=== PATIENT | male | born 1955 | race African-American/Black ===

== ENCOUNTER 2018-05-19 14:24 | Inpatient (IN) | payer OTHER ==
--- NOTE | 2018-05-19 15:28 | PDOC ---
History of Present Illness - General Chief Complaint: Shortness of Breath Stated Complaint: Shortness of Breath Time Seen by Provider: 05/19/18 15:27 History Source: Patient Exam Limitations: No Limitations - History of Present Illness Initial Comments: 05/19/18 15:46 62 year old male with PMH CHF, HTN, HLD, COPD, IDDM, scrotal swelling presented to ED for generalized weakness x4 days, worsening today. Pt stated he is normally able to walk "up and down the [place]" and use stairs, but for the last four days has sat in diarrhea because he was only able to transport himself from the bed to the couch and other short distances. Pt stated today he was not able to get out of bed at all because he was so generally weak, which prompted him to call the ambulance. Pt admitted to dry cough, increasing abdominal distension, increasing upper and lower extremity swelling. Allergies: NKDA Past History - Past Medical History Allergies/Adverse Reactions: Allergies Allergy/AdvReac Type Severity Reaction Status Date / Time No Known Allergies Allergy Unverified 05/19/18 15:10 Home Medications: Ambulatory Orders Aspirin [ASA -] 81 mg PO DAILY 05/19/18 Budesonide/Formeterol Fumarate [SYMBICORT 160/4.5mcg -] 1 inh PO BID 05/19/18 Enalapril Maleate [Vasotec] 20 mg PO DAILY 05/19/18 Furosemide [Lasix] 40 mg PO BID 05/19/18 Insulin Detemir [Levemir Flextouch] 10 units SQ HS 05/19/18 Metoprolol Succinate 50 mg PO BID 05/19/18 Rivaroxaban [Xarelto] 15 mg PO DAILY 05/19/18 Spironolactone 25 mg PO DAILY 05/19/18 Cardiac Disorders: Yes COPD: Yes Diabetes: Yes HTN: Yes Hypercholesterolemia: Yes Other medical history: PVD - Suicide/Smoking/Psychosocial Hx Smoking History: Former smoker Have you smoked in the past 12 months: No Information on smoking cessation initiated: No Hx Alcohol Use: No Drug/Substance Use Hx: No Review of Systems - Review of Systems Able to Perform ROS?: Yes Comments:: 05/19/18 15:49 General: admitted to generalized weakness. denied fever, chills. HEENT: denied sore throat, rhinorrhea, ear pain. Heart: denied chest pain, palpitations, syncope, diaphoresis. Respiratory: denied shortness of breath, cough, sputum production, hemoptysis. Abdomen: admitted to abdominal distension. denied abdominal pain, nausea, vomiting, diarrhea, constipation, blood in stool. : denied dysuria, increased urinary frequency, hematuria, urinary incontinence , flank pain. Back: denied back pain. Musculoskeletal: denied joint pain, muscle pain, joint swelling. Neurological: denied headache, dizziness, numbness, tingling, weakness. Skin: denied rash, laceration, abrasion. *Physical Exam - Vital Signs Last Vital Signs Temp Pulse Resp BP Pulse Ox 97.3 F L 129 H 33 H 146/107 H 89 L 05/19/18 14:30 05/19/18 14:30 05/19/18 14:30 05/19/18 14:30 05/19/18 14:30 - Physical Exam Comments: 05/19/18 16:10 Constitutional: morbidly obese. HEENT: head is normocephalic, atraumatic. EOMI. PERRLA. Neck: supple. Full ROM. Heart: regular rhythm. no murmurs, rubs or gallops. Lungs: decreased lung sounds bilaterally. crackles to bilateral bases. no wheezing. speaking full sentences. no accessory muscle use. Abdomen: edematous, dependent 4+ pitting edema. soft, nontender. normal bowel sounds. no rebound, guarding, masses. Extremities: peripheral pulses intact. 4+ pitting edema to upper and lower extremities. Neurological: CN 2-12 grossly intact. moves all four extremities. Psych: awake, alert, oriented x3. follows commands. answers questions appropriately. Skin: diffuse wounds to bilateral lower extremities. ED Treatment Course - LABORATORY CBC & Chemistry Diagram: 05/20/18 05:50 05/20/18 05:50 Medical Decision Making - Medical Decision Making 05/19/18 16:11 62 year old male with above PMH presented to ED for worsening generalized weakness, dry cough. Initial Vital Signs Temp Pulse Resp BP Pulse Ox 97.3 F L 129 H 33 H 146/107 H 89 L 05/19/18 14:30 05/19/18 14:30 05/19/18 14:30 05/19/18 14:30 05/19/18 14:30 Afebrile. Tachycardic. Tachypneic. Hypertensive. Hypoxic on room air. -Currently 94% on 2L NC Labs ordered: CBC, CMP, troponin, BNP, VBG Imaging ordered: CXR Medications ordered: SL Nitro 0.4 once EKG performed at 1438: rate 129, regular rhythm, normal axis, QRS 140, no acute ST abnormalities. 05/19/18 16:29 CBC WBC 9.3 K/mm3 (4.0-10.0) 05/19/18 15:35 RBC 6.27 M/mm3 (4.00-5.60) H 05/19/18 15:35 Hgb 16.2 GM/dL (11.7-16.9) 05/19/18 15:35 Hct 52.7 % (35.4-49) H 05/19/18 15:35 MCV 84.1 fl (80-96) 05/19/18 15:35 MCH 25.8 pg (25.7-33.7) 05/19/18 15:35 MCHC 30.7 g/dl (32.0-35.9) L 05/19/18 15:35 RDW 20.5 % (11.9-15.9) H 05/19/18 15:35 Plt Count 176 K/MM3 (134-434) 05/19/18 15:35 MPV 10.6 fl (7.5-11.1) 05/19/18 15:35 Absolute Neuts (auto) 7.9 K/mm3 (1.5-8.0) 05/19/18 15:35 Neutrophils % 85.2 % (42.8-82.8) H 05/19/18 15:35 Lymphocytes % 6.8 % (8-40) L 05/19/18 15:35 Monocytes % 6.5 % (3.8-10.2) 05/19/18 15:35 Eosinophils % 0.8 % (0-4.5) 05/19/18 15:35 Basophils % 0.7 % (0-2.0) 05/19/18 15:35 Nucleated RBC % 0 % (0-0) 05/19/18 15:35 No leukocytosis. No anemia. VBG - no acidosis. no CO2 retention. 05/19/18 16:39 CMP Sodium 142 mmol/L (136-145) 05/19/18 15:35 Potassium 3.9 mmol/L (3.5-5.1) 05/19/18 15:35 Chloride 109 mmol/L (98-107) H 05/19/18 15:35 Carbon Dioxide 26 mmol/L (21-32) 05/19/18 15:35 Anion Gap 8 MMOL/L (8-16) 05/19/18 15:35 BUN 9 mg/dL (7-18) 05/19/18 15:35 Creatinine 0.7 mg/dL (0.55-1.3) 05/19/18 15:35 Creat Clearance w eGFR 114.27 (>60) 05/19/18 15:35 Random Glucose 40 mg/dL (74-106) L* 05/19/18 15:35 Calcium 8.2 mg/dL (8.5-10.1) L 05/19/18 15:35 Phosphorus 3.3 mg/dL (2.5-4.9) 05/19/18 15:35 Magnesium 1.8 mg/dL (1.8-2.4) 05/19/18 15:35 Total Bilirubin 1.6 mg/dL (0.2-1) H 05/19/18 15:35 AST 27 U/L (15-37) 05/19/18 15:35 ALT 10 U/L (13-61) L 05/19/18 15:35 Alkaline Phosphatase 110 U/L (45-117) 05/19/18 15:35 Troponin I 0.03 ng/ml (0.00-0.05) 05/19/18 15:35 B-Natriuretic Peptide 9862.0 pg/ml (5-125) H 05/19/18 15:35 Total Protein 6.3 g/dl (6.4-8.2) L 05/19/18 15:35 Albumin 2.6 g/dl (3.4-5.0) L 05/19/18 15:35 No clinically significant electrolyte abnormalities. No KEYLA. Hypoglycemia. Normal troponin. Elevated BNP. Pt given juice and a sandwich for hypoglycemia. Pt to be admitted for CHF exacerbation, ansarca, respiratory distress, abdominal distension. CXR report: mild to moderate cardiomegaly without evidence of acute lung disease. 05/19/18 17:23 Pt to be admitted to Dr. Morris service. Pending admission. Medications ordered: Lasix 40 mg IV 05/19/18 18:14 BGM 39 Medications ordered: 1 amp D50 05/19/18 21:41 BGM 75 Medications ordered: 1 amp D50 *DC/Admit/Observation/Transfer Diagnosis at time of Disposition: Anasarca, Ascites, Respiratory distress - Discharge Dispostion Condition at time of disposition: Stable Decision to Admit order: Yes - Referrals - Patient Instructions - Post Discharge Activity
[2018-05-19] MEDS ORDERED: NITROGLYCERIN SUBLINGUAL 1/150 0.4 MG TAB SL ONE (15:46)
[2018-05-19 15:54] LABS: VENOUS PC02 51.9 mmHg (41-51); VENOUS PH 7.34 (7.31-7.41); VENOUS PO2 30.2 mmHg (30-40)
--- NOTE | 2018-05-19 15:57 | PDOC ---
Attending Attestation - HPI HPI: 05/19/18 16:04 The patient is a 62 year old male, with a significant PMH of COPD, HTN, and HLD who presents to the emergency department via EMS, with 4 days of generalized weakness and shortness of breath. The patient states he is usually able to walk long distances, however, for the last 4 days he has been sitting on his diarrhea because everytime he tried to get up he could not move. The patient states he is endorsing dry cough, increasing abdominal distension, and increasing upper and lower extremity swelling. The patient denies chest pain, headache or dizziness. The patient denies fever, chills, or constipation. The patient denies dysuria, frequency, urgency or hematuria. Allergies: NKA Past surgical history: None reported Social history: former smoker. No alcohol use. <Karla Estrada - Last Filed: 05/19/18 16:04> - Resident Resident Name: Yeimy Mccoy - ED Attending Attestation I have performed the following: I have examined & evaluated the patient, The case was reviewed & discussed with the resident, I agree w/resident's findings & plan, Exceptions are as noted - Physicial Exam PE: GENERAL: Awake, alert, and fully oriented. Obese. HEAD: No signs of trauma EYES: PERRLA, EOMI, sclera anicteric, conjunctiva clear ENT: Auricles normal inspection, hearing grossly normal, nares patent, oropharynx clear without exudates. Moist mucosa NECK: Normal ROM, supple, no lymphadenopathy, JVD, or masses LUNGS: +Crackles half-way up B/L. Good air entry B/L. HEART: Regular rate and rhythm, normal S1 and S2, no murmurs, rubs or gallops ABDOMEN: Soft, nontender, normoactive bowel sounds. No guarding, no rebound. No masses EXTREMITIES: Normal range of motion, 4+ pitting edema to all 4 extremities. + Stasis changes to BLE, with skin breakdown with granulation tissue to shins B/ L. No tenderness NEUROLOGICAL: Cranial nerves II through XII grossly intact. Normal speech. Motor and sensation intact SKIN: Warm, Dry, normal turgor, no rashes or lesions noted. - Medical Decision Making Pt presents with SOB, appears fluid overloaded on initial assessment. Will obtain CXR, labs, and plan for admission for CHF exacerbation. <Jayla Pablo - Last Filed: 05/19/18 16:27> Attestations - Attestations 05/19/18 16:05 Documentation prepared by Karla Estrada, acting as medical educator for Jayla Pablo MD, MD <Karla Estrada - Last Filed: 05/19/18 16:04>
[2018-05-19 16:01] LABS: INR 1.42 (0.83-1.09); PROTHROMBIN TIME (PATIENT) 16.8 SEC (9.7-13.0)
[2018-05-19 16:04] LABS: ACTIVATED PTT 37.9 SECONDS (25.2-36.5)
[2018-05-19 16:23] LABS: BASO % 0.7 % (0-2.0); EOS % 0.8 % (0-4.5); HEMATOCRIT 52.7 % (35.4-49); HEMOGLOBIN 16.2 GM/dL (11.7-16.9); LYMPH % 6.8 % (8-40); MCH 25.8 pg (25.7-33.7); MCHC 30.7 g/dl (32.0-35.9); MEAN CELL VOLUME 84.1 fl (80-96); MEAN PLT VOLUME 10.6 fl (7.5-11.1); MONO % 6.5 % (3.8-10.2); NEUT % 85.2 % (42.8-82.8); PLATELET COUNT 176 K/MM3 (134-434); RBC 6.27 M/mm3 (4.00-5.60); RDW 20.5 % (11.9-15.9); WHITE BLOOD COUNT 9.3 K/mm3 (4.0-10.0)
[2018-05-19 16:35] LABS: ALBUMIN 2.6 g/dl (3.4-5.0); ALK PHOS 110 U/L (45-117); ANION GAP 8 MMOL/L (8-16); BILIRUBIN,TOTAL 1.6 mg/dL (0.2-1); BLOOD UREA NITROGEN 9 mg/dL (7-18); CALCIUM 8.2 mg/dL (8.5-10.1); CHLORIDE 109 mmol/L (98-107); CO2 26 mmol/L (21-32); CREATININE 0.7 mg/dL (0.55-1.3); MAGNESIUM 1.8 mg/dL (1.8-2.4); PHOSPHOROUS 3.3 mg/dL (2.5-4.9); POTASSIUM 3.9 mmol/L (3.5-5.1); SGOT/AST 27 U/L (15-37); SGPT/ALT 10 U/L (13-61); SODIUM 142 mmol/L (136-145); TOT PROT 6.3 g/dl (6.4-8.2)
[2018-05-19 16:36] LABS: GLUCOSE,RANDOM 40 mg/dL (74-106)
[2018-05-19] MEDS ORDERED: FUROSEMIDE 40 MG/4 ML INJECTABLE VIAL IVPUSH ONE (17:21)
[2018-05-19] MEDS ORDERED: FUROSEMIDE 40 MG/4 ML INJECTABLE VIAL ONE (17:40)
[2018-05-19] MEDS ORDERED: METOPROLOL TARTRATE 5 MG/5 ML VIAL IVPUSH PRN (18:06)
[2018-05-19] MEDS ORDERED: DEXTROSE 50%-WATER 25 GM/50 ML DISP.SYRIN ONE (18:14)
[2018-05-19] MEDS ORDERED: DEXTROSE 50%-WATER - 25 GM/50 ML VIAL IVPUSH ONE ×2 (18:14→21:41)
[2018-05-19] MEDS: FUROSEMIDE 40 MG/4 ML INJECTABLE VIAL IVPUSH SCH (18:19)
--- NOTE | 2018-05-19 18:28 | HP ---
CHIEF COMPLAINT:SOB x4 days PCP: HISTORY OF PRESENT ILLNESS:pt is a poor historian, does not know his medical diagnosis because it gives him anxiety but claims medication compliance 62yo M with unconfirmed PMH presents with progressively worsening SOB x4 days. assoc wtih dry cough, poor po intake, generalized fatigue and inability to ambulate due to dyspnea. states this has been progressively worsening since his discharge last month from [facility] where he was hospitalized for < 30days for presumed CHF exacerbation. states they did every test you can think of and is unclear what were the results of those tests and what his medication changes were. states he did have a paracentesis at that time where 2.8L were removed but can not provide more information regarding this. has been at a multitude of different hospitals over the past few months but can not explain why he goes to a different facility each time. denies CP, fever, chills, N/V/C/ D or orthopnea, denies abdominal pain. states he was only able to take his asa and BP med this am and was too fatigued to take his remaining meds ER course was notable for: (1)glucose 40, juice given (2) (3) Recent Travel:denies PAST MEDICAL HISTORY:unclear but suspected to have HTN, AFib, CAD, CHF and cirrhosis PAST SURGICAL HISTORY:denies Social History: Smoking:quit 2019 but has 45+ pack year smoking history Alcohol:quit 2018 but was binge drinker on the weekends Drugs: THC in his 20's Family History:HTN in siblings Allergies No Known Allergies Allergy (Unverified 05/19/18 15:10) HOME MEDICATIONS: Home Medications Medication Instructions Recorded Aspirin [ASA -] 81 mg PO DAILY 05/19/18 Budesonide/Formeterol Fumarate 1 inh PO BID 05/19/18 [SYMBICORT 160/4.5mcg -] Enalapril Maleate [Vasotec] 20 mg PO DAILY 05/19/18 Furosemide [Lasix] 40 mg PO BID 05/19/18 Insulin Detemir [Levemir Flextouch] 10 units SQ HS 05/19/18 Metoprolol Succinate 50 mg PO BID 05/19/18 Rivaroxaban [Xarelto] 15 mg PO DAILY 05/19/18 Spironolactone 25 mg PO DAILY 05/19/18 REVIEW OF SYSTEMS CONSTITUTIONAL: generalized weakness, Absent: fever, chills, diaphoresis, malaise, loss of appetite, weight change HEENT: Absent: rhinorrhea, nasal congestion, throat pain, throat swelling, difficulty swallowing, mouth swelling, ear pain, eye pain, visual changes CARDIOVASCULAR: Absent: chest pain, syncope, palpitations, irregular heart rate, lightheadedness , peripheral edema RESPIRATORY: cough, shortness of breath, dyspnea with exertion Absent: , orthopnea, wheezing, stridor, hemoptysis GASTROINTESTINAL: Absent: abdominal pain, abdominal distension, nausea, vomiting, diarrhea, constipation, melena, hematochezia GENITOURINARY: Absent: dysuria, frequency, urgency, hesitancy, hematuria, flank pain, genital pain MUSCULOSKELETAL: Absent: myalgia, arthralgia, joint swelling, back pain, neck pain SKIN: Absent: rash, itching, pallor HEMATOLOGIC/IMMUNOLOGIC: Absent: easy bleeding, easy bruising, lymphadenopathy, frequent infections ENDOCRINE: Absent: unexplained weight gain, unexplained weight loss, heat intolerance, cold intolerance NEUROLOGIC: Absent: headache, focal weakness or paresthesias, dizziness, unsteady gait, seizure, mental status changes, bladder or bowel incontinence PSYCHIATRIC: Absent: anxiety, depression, suicidal or homicidal ideation, hallucinations. PHYSICAL EXAMINATION Vital Signs - 24 hr 05/19/18 05/19/18 05/19/18 14:30 14:45 16:42 Temperature 97.3 F L 97.1 F L Pulse Rate 129 H Pulse Rate [ 130 H Apical] Respiratory 33 H 22 H Rate Blood Pressure 146/107 H Blood Pressure 105/93 [Right Arm] O2 Sat by Pulse 89 L 94 L 100 Oximetry (%) GENERAL: Awake, alert, and fully oriented, in no acute distress. HEAD: Normal with no signs of trauma. EYES: Pupils equal, round and reactive to light, extraocular movements intact, sclera anicteric, conjunctiva clear. No lid lag. EARS, NOSE, THROAT: Ears normal, nares patent, oropharynx clear without exudates. Moist mucous membranes. NECK: Normal range of motion, supple without lymphadenopathy, JVD, or masses. LUNGS: Breath sounds equal, clear to auscultation bilaterally. No wheezes, and no crackles. No accessory muscle use. HEART: Regular rate and rhythm, normal S1 and S2 without murmur, rub or gallop. ABDOMEN: firm +distended, +ansarca. nontender, normoactive bowel sounds, MUSCULOSKELETAL: Normal range of motion at all joints. No bony deformities or tenderness. No CVA tenderness. UPPER EXTREMITIES: 2+ pulses, warm, well-perfused. No cyanosis. No clubbing. 3+ pitting edema LOWER EXTREMITIES: 2+ pulses, warm, well-perfused. No calf tenderness. 3+ pitting edema. NEUROLOGICAL: Cranial nerves II-XII intact. Normal speech. PSYCHIATRIC: Cooperative. Good eye contact. Appropriate mood and affect. genitals penis is edematous Laboratory Results - last 24 hr 05/19/18 05/19/18 05/19/18 15:35 15:35 15:35 WBC 9.3 RBC 6.27 H Hgb 16.2 Hct 52.7 H MCV 84.1 MCH 25.8 MCHC 30.7 L RDW 20.5 H Plt Count 176 MPV 10.6 Absolute Neuts (auto) 7.9 Neutrophils % 85.2 H Lymphocytes % 6.8 L Monocytes % 6.5 Eosinophils % 0.8 Basophils % 0.7 Nucleated RBC % 0 PT with INR 16.80 H INR 1.42 H PTT (Actin FS) 37.9 H VBG pH POC VBG pCO2 POC VBG pO2 VBG HCO3 VBG O2 Sat (Manuel) VBG Base Excess Sodium Potassium Chloride Carbon Dioxide Anion Gap BUN Creatinine Creat Clearance w eGFR Random Glucose Calcium Phosphorus Magnesium Total Bilirubin AST ALT Alkaline Phosphatase Troponin I B-Natriuretic Peptide Total Protein Albumin Blood Type B POSITIVE Antibody Screen Negative 05/19/18 05/19/18 15:35 15:35 WBC RBC Hgb Hct MCV MCH MCHC RDW Plt Count MPV Absolute Neuts (auto) Neutrophils % Lymphocytes % Monocytes % Eosinophils % Basophils % Nucleated RBC % PT with INR INR PTT (Actin FS) VBG pH 7.34 POC VBG pCO2 51.9 H POC VBG pO2 30.2 VBG HCO3 27.5 VBG O2 Sat (Manuel) 41.1 L VBG Base Excess 1.1 Sodium 142 Potassium 3.9 Chloride 109 H Carbon Dioxide 26 Anion Gap 8 BUN 9 Creatinine 0.7 Creat Clearance w eGFR 114.27 Random Glucose 40 L* Calcium 8.2 L Phosphorus 3.3 Magnesium 1.8 Total Bilirubin 1.6 H AST 27 ALT 10 L Alkaline Phosphatase 110 Troponin I 0.03 B-Natriuretic Peptide 9862.0 H Total Protein 6.3 L Albumin 2.6 L Blood Type Antibody Screen ASSESSMENT/PLAN: 62yo M with unknown PMH presenting with progressively worsening shortness of breath with generalized fatigue 1. Volume overload- has suspected CHF vs cirrhosis with ansarca. obtain liver u/ s. start on lasix 40mg IVP BID, spirolactone. would benefit from therapeutic and diagnostic paracentesis but is on anticoagulation and ED is unable to do at this time. will obtain medical records from [facility] to determine workup completed there. strict I&O, monitor electrolytes, daily weights. 2 afib with RVR- place on tele for cardiac monitoring. give lopressor 5mg prn for HR >120. restart metrpolol and pradaxa as no likelihood of procedure over the weekend 3. Hypoglycemia- unclear if he took insulin last night. awaiting repeat glucose at this time. would avoid starting D5w at this time to prevent worsneing anasrca. would hold insulin at this point. monitor BGM closely. check A1c 4. COPD- no signs of acute exacerbation. cont inhalers 5. CAD- hold asa for possible procedure. unclear if not on statin. had cardiac workup recently. will obtain those records 6. HTN- currently hypotensive. would hold oral agents. optimize HR control and then can re-start as needed 7. DVT ppx- xarelto 8. Requested psychiatric secretary to obtain medical records from [facility]. states he fills medications at [facility] but currently closed. has used [facility] in [place] in the past. called to obtain med list from there but note that this is from nov 2017 and may not reflect the most up to date list. Visit type - Emergency Visit Emergency Visit: Yes ED Registration Date: 05/19/18 Care time: The patient presented to the Emergency Department on the above date and was hospitalized for further evaluation of their emergent condition. - New Patient This patient is new to me today: Yes Date on this admission: 05/19/18 - Critical Care Critical Care patient: No
[2018-05-19 18:40] LABS: ANISOCYTOSIS 1+
[2018-05-19] MEDS: RIVAROXABAN 20 MG TABLET PO SCH (18:43)
[2018-05-19] MEDS: SPIRONOLACTONE 25 MG TABLET (FP) PO SCH (18:43)
[2018-05-19] MEDS: BUDESONIDE/FORMETEROL FUMARATE 160/4.5 mcg INHALER IH SCH (22:59)
[2018-05-20] MEDS: FUROSEMIDE 40 MG/4 ML INJECTABLE VIAL IVPUSH SCH ×3 (07:56→13:31)
[2018-05-20 08:10] LABS: HEMATOCRIT 39.7 % (35.4-49); HEMOGLOBIN 12.7 GM/dL (11.7-16.9); MCH 26.2 pg (25.7-33.7); MCHC 31.8 g/dl (32.0-35.9); MEAN CELL VOLUME 82.3 fl (80-96); MEAN PLT VOLUME 11.1 fl (7.5-11.1); PLATELET COUNT 172 K/MM3 (134-434); RBC 4.83 M/mm3 (4.00-5.60); RDW 19.9 % (11.9-15.9)
[2018-05-20 08:50] LABS: ALBUMIN 2.4 g/dl (3.4-5.0); ALK PHOS 89 U/L (45-117); ANION GAP 5 MMOL/L (8-16); BILIRUBIN,TOTAL 1.4 mg/dL (0.2-1); BLOOD UREA NITROGEN 11 mg/dL (7-18); CALCIUM 8.3 mg/dL (8.5-10.1); CHLORIDE 107 mmol/L (98-107); CHOLESTEROL 95 mg/dL (50-200); CO2 30 mmol/L (21-32); GLUCOSE,RANDOM 85 mg/dL (74-106); HDL CHOLESTEROL 43 mg/dL (40-60); MAGNESIUM 1.6 mg/dL (1.8-2.4); POTASSIUM 3.8 mmol/L (3.5-5.1); SGOT/AST 23 U/L (15-37); SGPT/ALT 10 U/L (13-61); SODIUM 142 mmol/L (136-145); TOT PROT 5.5 g/dl (6.4-8.2); TRIGLYCERIDES 77 mg/dL (0-150)
[2018-05-20] MEDS: SPIRONOLACTONE 25 MG TABLET (FP) PO SCH (09:13)
[2018-05-20] MEDS: BUDESONIDE/FORMETEROL FUMARATE 160/4.5 mcg INHALER IH SCH ×2 (09:13→22:13)
[2018-05-20] MEDS: RIVAROXABAN 20 MG TABLET PO SCH (17:53)
--- NOTE | 2018-05-20 19:03 | PN ---
Physical Exam: SUBJECTIVE: Patient seen and examined, no complaints at this time OBJECTIVE: Vital Signs Period Temp Pulse Resp BP Sys/Rosado Pulse Ox Last 24 Hr 97.2 F-97.9 F 83-116 18-20 125-161/66-89 94-95 in no distress at this time. MMM No ocular discharge No nasal discharge CVS:S1S2 Lungs: distant breath sound Abd: BS+ NT/ND EXT: edema up to the groin as well as the dependent area of the thorax while he is laying on his back states that is chronic and has been going on for weeks. Laboratory Results - last 24 hr 05/19/18 05/19/18 05/19/18 05:50 15:35 18:56 WBC RBC Hgb Hct MCV MCH MCHC RDW Plt Count MPV Sodium 142 Potassium 3.9 Chloride 109 H Carbon Dioxide 26 Anion Gap 8 BUN 9 Creatinine 0.7 Creat Clearance w eGFR 114.27 POC Glucometer 78 Random Glucose 40 L* Hemoglobin A1c % Calcium 8.2 L Phosphorus 3.3 Magnesium 1.8 Total Bilirubin 1.6 H AST 27 ALT 10 L Alkaline Phosphatase 110 Troponin I 0.03 B-Natriuretic Peptide 9862.0 H Total Protein 6.3 L Albumin 2.6 L Triglycerides Cholesterol Total LDL Cholesterol HDL Cholesterol TSH 3.24 Blood Type B POSITIVE 05/19/18 05/20/18 05/20/18 22:55 00:37 05:49 WBC RBC Hgb Hct MCV MCH MCHC RDW Plt Count MPV Sodium Potassium Chloride Carbon Dioxide Anion Gap BUN Creatinine Creat Clearance w eGFR POC Glucometer 53 85 91 Random Glucose Hemoglobin A1c % Calcium Phosphorus Magnesium Total Bilirubin AST ALT Alkaline Phosphatase Troponin I B-Natriuretic Peptide Total Protein Albumin Triglycerides Cholesterol Total LDL Cholesterol HDL Cholesterol TSH Blood Type 05/20/18 05/20/18 05/20/18 05:50 05:50 05:50 WBC 8.0 RBC 4.83 Hgb 12.7 Hct 39.7 D MCV 82.3 MCH 26.2 MCHC 31.8 L RDW 19.9 H Plt Count 172 MPV 11.1 Sodium 142 Potassium 3.8 Chloride 107 Carbon Dioxide 30 Anion Gap 5 L BUN 11 Creatinine 1.0 Creat Clearance w eGFR 75.72 POC Glucometer Random Glucose 85 Hemoglobin A1c % 6.4 H Calcium 8.3 L Phosphorus Magnesium 1.6 L Total Bilirubin 1.4 H AST 23 ALT 10 L Alkaline Phosphatase 89 Troponin I B-Natriuretic Peptide Total Protein 5.5 L Albumin 2.4 L Triglycerides 77 Cholesterol 95 Total LDL Cholesterol 41 HDL Cholesterol 43 TSH Blood Type Active Medications Generic Name Dose Route Start Last Admin Trade Name Freq PRN Reason Stop Dose Admin Budesonide/Formoterol Fumarate 2 puff 05/19/18 22:00 05/20/18 09:13 Symbicort 160/4.5mcg - IH 2 puff BID SOWMYA Administration Furosemide 40 mg 05/19/18 18:15 05/20/18 13:31 Lasix Injection - IVPUSH 40 mg BIDLASIX SOWMYA Administration Metoprolol Succinate 50 mg 05/19/18 22:00 05/20/18 09:13 Toprol Xl - PO 50 mg BID SOWMYA Administration Metoprolol Tartrate 5 mg 05/19/18 18:06 Lopressor Injection - IVPUSH Q4H PRN TACHYCARDIA Rivaroxaban 20 mg 05/19/18 18:15 05/20/18 17:53 Xarelto - PO 20 mg DAILY@1800 SOWMYA Administration Spironolactone 25 mg 05/19/18 18:15 05/20/18 09:13 Aldactone - PO 25 mg DAILY SOWMYA Administration ASSESSMENT/PLAN: 62 Y/O morbidly obese, known HF, non adherent to medication and diet. P/W volume overload at this time. C/W lasix daily weight, strict I.O, Keep K>4,Mg>2. C/W rest of medication at this time. chronic leg ulcer in the setting of edema:will place dressing on, not infected.
[2018-05-20] MEDS ORDERED: BACITRACIN 0.9 GM PACKET TP ONE (19:15)
[2018-05-21] MEDS: FUROSEMIDE 40 MG/4 ML INJECTABLE VIAL IVPUSH SCH (06:28)
--- NOTE | 2018-05-21 07:40 | PN ---
Physical Exam: SUBJECTIVE: Patient seen and examined,No over night events, states that he has urinating but not that much and he can not measure it as his Penis is swollen and he can not use the urinal OBJECTIVE: Vital Signs Period Temp Pulse Resp BP Sys/Rosado Pulse Ox Last 24 Hr 97.2 F-99.2 F 83-104 18-20 109-134/45-115 95-96 morbidly obese M in no distress, sitting in his bed, can also lay in the bed, with no distress MMM CVS:s1S2 Lungs: distant breath sounds Abd:BS+, NT/ND, morbidly obese EXT: 2+ pitting edema up to the penis, scrotum is also swollen, JVD was not evaluated as he has a tick neck Active Medications Generic Name Dose Route Start Last Admin Trade Name Freq PRN Reason Stop Dose Admin Budesonide/Formoterol Fumarate 2 puff 05/19/18 22:00 05/20/18 22:13 Symbicort 160/4.5mcg - IH 2 puff BID SOWMYA Administration Furosemide 100 mg 05/21/18 10:00 Lasix Injection - IVPB BID SOWMYA Metoprolol Succinate 50 mg 05/19/18 22:00 05/20/18 22:13 Toprol Xl - PO 50 mg BID SOWMYA Administration Metoprolol Tartrate 5 mg 05/19/18 18:06 Lopressor Injection - IVPUSH Q4H PRN TACHYCARDIA Rivaroxaban 20 mg 05/19/18 18:15 05/20/18 17:53 Xarelto - PO 20 mg DAILY@1800 SOWMYA Administration Spironolactone 25 mg 05/19/18 18:15 05/20/18 09:13 Aldactone - PO 25 mg DAILY SOWMYA Administration Laboratory Tests 05/20/18 05/20/18 05/20/18 05:50 05:50 05:50 WBC 8.0 Hgb 12.7 Hct 39.7 D Sodium Potassium 3.8 Chloride Carbon Dioxide BUN 11 Creatinine 1.0 Hemoglobin A1c % 6.4 H Magnesium 1.6 L Total Bilirubin 1.4 H AST 23 ALT 10 L Albumin 2.4 L 05/21/18 06:40 WBC Hgb Hct Sodium 142 Potassium 3.5 Chloride 106 Carbon Dioxide 28 BUN 12 Creatinine 1.3 Hemoglobin A1c % Magnesium 1.6 L Total Bilirubin AST ALT Albumin Per notes here he has gained about 10 pounds in the past 2 days of admission ASSESSMENT/PLAN: 62yo MW morbid obestiy, HTN, TAJ, afib with RVR, HFrEF with multiple admissions in different hospitals for volume overload, non adhrent to the diet, P/W another episode sof worsening SOB and decreased ET was found to be in volume overload. 1. HF rEF with volume overload, in the setting of non adherence to diet Lasix 40 mg bid will increase the dose to 80 TID at this time Will measure I/O , daily weight Keep K>4, Mg>2( Will replete at this time) BID BMP, Mg TTE today cardiology evaluation patient used to be on B blockers so they were continued, HR in 80s today. will monitor and adjust the dose as needed will start on low dose lisinopril at this time will start aspirin, statin Will try to get records on Tuesday If can not get the I/O may need to get pineda placed Bicarb still WNl 2 afib with RVR- place on tele for cardiac monitoring. rate in 80s at this time , C/W metrpolol and pradaxa 3. COPD- no signs of acute exacerbation. cont inhalers, used to be heavy smoker for years 4. DM: states that takes 10 units of insulin at night, A1C 6.4, will C/W monitoring at this time 5.Hypoalbuminemia: rest of the liver tests are not significantly abnormal at this time, will ask for nutrition evaluation, will send urine protein, albumin, Cr for proteinuria, US liver for fattyl liver , has HX of Etoh abuse ( quit last year) 6. Morbid obesity: will ask nutrition consult 7.DVT ppx- xarelto 8. Requested ceo and co founder to obtain medical records from [facility]. states he fills medications at [facility] but currently closed. has used [facility] in [place] in the past. called to obtain med list from there but note that this is from nov 2017 and may not reflect the most up to date list. FC Dispo: pending improvement of HF and volume status t Visit type - Emergency Visit Emergency Visit: Yes ED Registration Date: 05/19/18 Care time: The patient presented to the Emergency Department on the above date and was hospitalized for further evaluation of their emergent condition. - New Patient This patient is new to me today: No - Critical Care Critical Care patient: No - Discharge Referral Referred to [facility] formerly [facility] No
[2018-05-21 08:03] LABS: ANION GAP 7 MMOL/L (8-16); BLOOD UREA NITROGEN 12 mg/dL (7-18); CALCIUM 7.7 mg/dL (8.5-10.1); CHLORIDE 106 mmol/L (98-107); CO2 28 mmol/L (21-32); CREATININE 1.3 mg/dL (0.55-1.3); GLUCOSE,RANDOM 124 mg/dL (74-106); MAGNESIUM 1.6 mg/dL (1.8-2.4); POTASSIUM 3.5 mmol/L (3.5-5.1); SODIUM 142 mmol/L (136-145)
--- NOTE | 2018-05-21 09:12 | CON.CARD ---
Consult Consult Specialty:: Cardiology Referred by:: Hospitalist Reason for Consultation:: Cardiac evaluation - History of Present Illness Chief Complaint: Generalized weakness History of Present Illness: Patient is a 62 year old male with underlying history of HTN, hypercholesterolemia, IDDM, COPD and CHF who presents with generalized weakness. He had difficulty ambulating up and down the stairs and also had some diarrhea. He denies chest pain. Monitor reveals tachycardia suggestive of atrial arrhythmia, possible AF with RVR. He complains of dry cough, abdominal fullness and lower extremity swelling. He denies fever or chills. He denies nausea or vomiting. He denies headache or lightheadedness. - History Source History Provided By: Patient, Medical Record Limitations to Obtaining History: Clinical Condition - Past Medical History Cardio/Vascular: Yes: AFIB, CHF, HTN, Hyperlipdemia Pulmonary: Yes: COPD Endocrine: Yes: Diabetes Mellitus - Alcohol/Substance Use Hx Alcohol Use: Yes - Smoking History Smoking history: Former smoker Have you smoked in the past 12 months: No Home Medications - Allergies Allergies/Adverse Reactions: Allergies Allergy/AdvReac Type Severity Reaction Status Date / Time No Known Allergies Allergy Unverified 05/19/18 15:10 - Home Medications Home Medications: Ambulatory Orders Aspirin [ASA -] 81 mg PO DAILY 05/19/18 Budesonide/Formeterol Fumarate [SYMBICORT 160/4.5mcg -] 1 inh PO BID 05/19/18 Enalapril Maleate [Vasotec] 20 mg PO DAILY 05/19/18 Furosemide [Lasix] 40 mg PO BID 05/19/18 Insulin Detemir [Levemir Flextouch] 10 units SQ HS 05/19/18 Metoprolol Succinate 50 mg PO BID 05/19/18 Rivaroxaban [Xarelto] 15 mg PO DAILY 05/19/18 Spironolactone 25 mg PO DAILY 05/19/18 Review of Systems - Review of Systems Constitutional: denies: Chills, Fever Cardiovascular: reports: Palpitations, Shortness of Breath. denies: Chest Pain Respiratory: reports: Cough. denies: Hemoptysis, Orthopnea, PND Gastrointestinal: reports: Diarrhea. denies: Abdominal Pain, Melena, Nausea, Rectal Bleeding, Vomiting Neurological: denies: Dizziness, Headache, Seizure, Syncope Vital Signs: Vital Signs Temperature 97.9 F 05/21/18 06:01 Pulse Rate 85 05/21/18 06:01 Respiratory Rate 20 05/21/18 06:01 Blood Pressure 126/65 05/21/18 06:01 O2 Sat by Pulse Oximetry (%) 96 05/20/18 20:49 Eyes: Yes: PERRL HENT: Yes: Atraumatic Neck: Yes: Supple Respiratory: Yes: Diminished Gastrointestinal: Yes: Normal Bowel Sounds, Soft, Abdomen, Obese. No: Tenderness Cardiovascular: Yes: Tachycardia, Pulse Irregular JVD: No PMI: Non-Displaced Heart Sounds: Yes: S1, S2 Murmur: Yes: Systolic Murmur, Grade 1 Edema: Yes Edema: LLE: 1+, RLE: 1+ - Other Data Labs, Other Data: CBC, BMP 05/20/18 05:50 05/21/18 06:40 INR, PTT INR 1.42 (0.83-1.09) H 05/19/18 15:35 Laboratory Results - last 24 hr 05/19/18 05/21/18 05:50 06:40 Sodium 142 Potassium 3.5 Chloride 106 Carbon Dioxide 28 Anion Gap 7 L BUN 12 Creatinine 1.3 Creat Clearance w eGFR 55.94 Random Glucose 124 H Calcium 7.7 L Magnesium 1.6 L Blood Type B POSITIVE AF with RVR Imaging - Results Chest X-ray: Report Reviewed (Cardiomegaly) X-ray: Report Reviewed (Moderate ascites and right pleural effusion) EKG: Report Reviewed Problem List - Problems (1) Afib Code(s): I48.91 - UNSPECIFIED ATRIAL FIBRILLATION Qualifiers: Atrial fibrillation type: paroxysmal Qualified Code(s): I48.0 - Paroxysmal atrial fibrillation (2) Anasarca Code(s): R60.1 - GENERALIZED EDEMA (3) Ascites Code(s): R18.8 - OTHER ASCITES (4) COPD (chronic obstructive pulmonary disease) Code(s): J44.9 - CHRONIC OBSTRUCTIVE PULMONARY DISEASE, UNSPECIFIED (5) HTN (hypertension) Code(s): I10 - ESSENTIAL (PRIMARY) HYPERTENSION Qualifiers: Hypertension type: essential hypertension Qualified Code(s): I10 - Essential (primary) hypertension (6) Heart failure, systolic, with acute decompensation Code(s): I50.23 - ACUTE ON CHRONIC SYSTOLIC (CONGESTIVE) HEART FAILURE (7) Hypercholesteremia Code(s): E78.00 - PURE HYPERCHOLESTEROLEMIA, UNSPECIFIED (8) Morbid obesity with BMI of 40.0-44.9, adult Code(s): E66.01 - MORBID (SEVERE) OBESITY DUE TO EXCESS CALORIES; Z68.41 - BODY MASS INDEX (BMI) 40.0-44.9, ADULT (9) Respiratory distress Code(s): R06.03 - ACUTE RESPIRATORY DISTRESS (10) T2DM (type 2 diabetes mellitus) Code(s): E11.9 - TYPE 2 DIABETES MELLITUS WITHOUT COMPLICATIONS Assessment/Plan 1. Ascites 2. Pleural effusion suggests acute on chronic diastolic +/- systolic LV dysfunction with class 1-2 NYHA LV failure 3. HTN 4. Hypercholesterolemia 5. AF with RVR on DOAC 6. Generalized weakness 7. DM 8. Exogenous obesity PLAN: 1. Continue diuretics and monitor renal function and electrolytes 2. Continue Aldactone 3. Continue Toprol XL (uptitrate) and Prinivil as tolerated. Lopressor IV for added rate control 4. Continue Xarelto 5. Further management on ascites for therapeutic and diagnostic evaluation 6. Bronchodilator as needed 7. Echocardiography to assess LV/RV and valvular function 8. Statin therapy Further plans are to follow Christofer Montgomery MD
[2018-05-21] MEDS ORDERED: POTASSIUM CHLORIDE ORAL LIQUID 20 MEQ/15 ML PO ONE (09:15)
[2018-05-21] MEDS ORDERED: MAGNESIUM SULFATE IN WATER 2 GM/50 ML IVPB IVPB ONE (09:15)
[2018-05-21] MEDS: SPIRONOLACTONE 25 MG TABLET (FP) PO SCH (09:24)
[2018-05-21] MEDS: FUROSEMIDE 100 MG/10 ML INJECTABLE VIAL IVPB SCH ×2 (09:24→13:06)
[2018-05-21] MEDS: LISINOPRIL 10 MG TABLET (FP) PO SCH (09:24)
[2018-05-21] MEDS: BUDESONIDE/FORMETEROL FUMARATE 160/4.5 mcg INHALER IH SCH ×2 (09:25→21:52)
[2018-05-21] MEDS ORDERED: MAGNESIUM SULF 50% (8.12 MEQ/2 ML-1 GM VIAL) ONE (10:12)
[2018-05-21] MEDS ORDERED: PT OWN MED DRAWER 7, Y5N ONE (12:57)
[2018-05-21 15:37] LABS: ANION GAP 5 MMOL/L (8-16); BLOOD UREA NITROGEN 13 mg/dL (7-18); CALCIUM 8.3 mg/dL (8.5-10.1); CHLORIDE 102 mmol/L (98-107); CO2 32 mmol/L (21-32); CREATININE 1.3 mg/dL (0.55-1.3); GLUCOSE,RANDOM 108 mg/dL (74-106); POTASSIUM 4.2 mmol/L (3.5-5.1); SODIUM 140 mmol/L (136-145)
[2018-05-21 17:57] LABS: URINE CREATININE < 13.0 mg/dL (20-320); URINE PROTEIN 7 mg/dl (5.0-11.9)
[2018-05-21] MEDS: RIVAROXABAN 20 MG TABLET PO SCH (18:45)
[2018-05-21] MEDS: ATORVASTATIN CA 20 MG TABLET (FP) PO SCH (21:51)
[2018-05-22] MEDS: FUROSEMIDE 100 MG/10 ML INJECTABLE VIAL IVPB SCH ×2 (05:20→15:35)
--- NOTE | 2018-05-22 08:45 | PN ---
Progress Note, Physician Chief Complaint: No new complaint History of Present Illness: 62yo MW morbid obestiy, HTN, TAJ, afib with RVR, HFrEF with multiple admissions in different hospitals for volume overload, non adhrent to the diet, P/W another episode sof worsening SOB and decreased ET was found to be in volume overload. - Current Medication List Current Medications: Active Medications Atorvastatin Calcium (Lipitor -) 20 mg PO HS [facility] Last Admin: 05/21/18 21:51 Dose: 20 mg Budesonide/Formoterol Fumarate (Symbicort 160/4.5mcg -) 2 puff IH BID [facility] Last Admin: 05/21/18 21:52 Dose: 2 puff Furosemide (Lasix Injection -) 100 mg IVPB BIDLASIX [facility] Last Admin: 05/22/18 05:20 Dose: 100 mg Lisinopril (Prinivil) 10 mg PO DAILY [facility] Last Admin: 05/21/18 09:24 Dose: 10 mg Metoprolol Succinate (Toprol Xl -) 50 mg PO BID [facility] Last Admin: 05/21/18 21:51 Dose: 50 mg Metoprolol Tartrate (Lopressor Injection -) 5 mg IVPUSH Q4H PRN PRN Reason: TACHYCARDIA Rivaroxaban (Xarelto -) 20 mg PO DAILY@1800 [facility] Last Admin: 05/21/18 18:45 Dose: 20 mg Spironolactone (Aldactone -) 25 mg PO DAILY [facility] Last Admin: 05/21/18 09:24 Dose: 25 mg - Objective Vital Signs: Vital Signs Temperature 98.2 F 05/22/18 05:00 Pulse Rate 86 05/22/18 05:00 Respiratory Rate 20 05/22/18 05:00 Blood Pressure 127/75 05/22/18 05:00 O2 Sat by Pulse Oximetry (%) 93 L 05/21/18 21:00 Middle aged obese man not in distress HEENT: Mm moist, no anemia, PERRLA, EOMI NECK: No JVD no bruit CHEST: Basal crepts CVS: s1s@ Irr Afib ABD: Obese , distended ascites + EXT: B/L edema and stasis ulcers, BRICK CARRIER: AOX3 non focal Labs: CBC, BMP 05/20/18 05:50 05/21/18 14:40 INR, PTT INR 1.42 (0.83-1.09) H 05/19/18 15:35 Problem List - Problems (1) Heart failure, systolic, with acute decompensation Assessment/Plan: Due to non compliance elevated BNP, volume over loaded on B Blockers and Diuretic will F/U ECHO, Cardiology input low salt Diet, daily wt, IP/OP chart Code(s): I50.23 - ACUTE ON CHRONIC SYSTOLIC (CONGESTIVE) HEART FAILURE (2) T2DM (type 2 diabetes mellitus) Assessment/Plan: Cont currect correction dose insulin Code(s): E11.9 - TYPE 2 DIABETES MELLITUS WITHOUT COMPLICATIONS (3) HTN (hypertension) Assessment/Plan: Well controlled on current meds Code(s): I10 - ESSENTIAL (PRIMARY) HYPERTENSION (4) Morbid obesity with BMI of 40.0-44.9, adult Assessment/Plan: Wr reduction, nutrition consult as out patient Code(s): E66.01 - MORBID (SEVERE) OBESITY DUE TO EXCESS CALORIES; Z68.41 - BODY MASS INDEX (BMI) 40.0-44.9, ADULT (5) COPD (chronic obstructive pulmonary disease) Assessment/Plan: STable cont current management Code(s): J44.9 - CHRONIC OBSTRUCTIVE PULMONARY DISEASE, UNSPECIFIED (6) Afib Assessment/Plan: Rtae controlled now on AC Code(s): I48.91 - UNSPECIFIED ATRIAL FIBRILLATION (7) Hypercholesteremia Assessment/Plan: On statin Code(s): E78.00 - PURE HYPERCHOLESTEROLEMIA, UNSPECIFIED (8) Anasarca Assessment/Plan: Due to low albumin and CHF exacerbation. Code(s): R60.1 - GENERALIZED EDEMA
--- NOTE | 2018-05-22 09:27 | PN ---
Progress Note, Physician Chief Complaint: Dyspnea persists History of Present Illness: Patient was seen and examined. Awake and alert. Chart was reviewed Denies chest pain or palpitations Intermittent dyspnea - Current Medication List Current Medications: Active Medications Atorvastatin Calcium (Lipitor -) 20 mg PO HS [facility] Last Admin: 05/21/18 21:51 Dose: 20 mg Budesonide/Formoterol Fumarate (Symbicort 160/4.5mcg -) 2 puff IH BID [facility] Last Admin: 05/21/18 21:52 Dose: 2 puff Furosemide (Lasix Injection -) 100 mg IVPB BIDLASIX [facility] Last Admin: 05/22/18 05:20 Dose: 100 mg Lisinopril (Prinivil) 10 mg PO DAILY [facility] Last Admin: 05/21/18 09:24 Dose: 10 mg Metoprolol Succinate (Toprol Xl -) 50 mg PO BID [facility] Last Admin: 05/21/18 21:51 Dose: 50 mg Metoprolol Tartrate (Lopressor Injection -) 5 mg IVPUSH Q4H PRN PRN Reason: TACHYCARDIA Rivaroxaban (Xarelto -) 20 mg PO DAILY@1800 [facility] Last Admin: 05/21/18 18:45 Dose: 20 mg Spironolactone (Aldactone -) 25 mg PO DAILY [facility] Last Admin: 05/21/18 09:24 Dose: 25 mg - Objective Vital Signs: Vital Signs Temperature 98.2 F 05/22/18 05:00 Pulse Rate 86 05/22/18 05:00 Respiratory Rate 20 05/22/18 08:46 Blood Pressure 127/75 05/22/18 05:00 O2 Sat by Pulse Oximetry (%) 93 L 05/22/18 08:46 Eyes: Yes: PERRL HENT: Yes: Atraumatic Neck: Yes: Supple Cardiovascular: Yes: Regular Rate and Rhythm, S1, S2 Respiratory: Yes: Diminished Gastrointestinal: Yes: Normal Bowel Sounds, Soft, Abdomen, Obese, Ascites. No: Tenderness Edema: Yes Additional Findings/Remarks: - Review of Systems Constitutional: denies: Chills, Fever Cardiovascular: reports: Palpitations, Shortness of Breath. denies: Chest Pain Respiratory: reports: Cough. denies: Hemoptysis, Orthopnea, PND Gastrointestinal: reports: Diarrhea. denies: Abdominal Pain, Melena, Nausea, Rectal Bleeding, Vomiting Neurological: denies: Dizziness, Headache, Seizure, Syncope Labs: CBC, BMP 05/20/18 05:50 05/21/18 14:40 INR, PTT INR 1.42 (0.83-1.09) H 05/19/18 15:35 Problem List - Problems (1) Afib Code(s): I48.91 - UNSPECIFIED ATRIAL FIBRILLATION Qualifiers: Atrial fibrillation type: paroxysmal Qualified Code(s): I48.0 - Paroxysmal atrial fibrillation (2) Anasarca Code(s): R60.1 - GENERALIZED EDEMA (3) Ascites Code(s): R18.8 - OTHER ASCITES (4) COPD (chronic obstructive pulmonary disease) Code(s): J44.9 - CHRONIC OBSTRUCTIVE PULMONARY DISEASE, UNSPECIFIED (5) HTN (hypertension) Code(s): I10 - ESSENTIAL (PRIMARY) HYPERTENSION Qualifiers: Hypertension type: essential hypertension Qualified Code(s): I10 - Essential (primary) hypertension (6) Heart failure, systolic, with acute decompensation Code(s): I50.23 - ACUTE ON CHRONIC SYSTOLIC (CONGESTIVE) HEART FAILURE (7) Hypercholesteremia Code(s): E78.00 - PURE HYPERCHOLESTEROLEMIA, UNSPECIFIED (8) Morbid obesity with BMI of 40.0-44.9, adult Code(s): E66.01 - MORBID (SEVERE) OBESITY DUE TO EXCESS CALORIES; Z68.41 - BODY MASS INDEX (BMI) 40.0-44.9, ADULT (9) Respiratory distress Code(s): R06.03 - ACUTE RESPIRATORY DISTRESS (10) T2DM (type 2 diabetes mellitus) Code(s): E11.9 - TYPE 2 DIABETES MELLITUS WITHOUT COMPLICATIONS Assessment/Plan 1. Ascites 2. Pleural effusion suggests acute on chronic diastolic +/- systolic LV dysfunction with class 1-2 NYHA LV failure 3. HTN 4. Hypercholesterolemia 5. ? AF with RVR on DOAC, wide complex suggests underlying nonspecific conduction delay vs. LBBB 6. Generalized weakness 7. DM 8. Exogenous obesity PLAN: 1. Continue diuretics and monitor renal function and electrolytes 2. Continue Aldactone 3. Continue Toprol XL (uptitrate) and Prinivil as tolerated. Lopressor IV for added rate control 4. Continue Xarelto 5. Further management on ascites for therapeutic and diagnostic evaluation 6. Bronchodilator as needed 7. Echocardiography to assess LV/RV and valvular function 8. Statin therapy Further plans are to follow Christofer Montgomery MD
[2018-05-22] MEDS: BUDESONIDE/FORMETEROL FUMARATE 160/4.5 mcg INHALER IH SCH ×2 (10:24→21:55)
[2018-05-22] MEDS: LISINOPRIL 10 MG TABLET (FP) PO SCH (10:24)
[2018-05-22] MEDS: SPIRONOLACTONE 25 MG TABLET (FP) PO SCH (10:24)
--- NOTE | 2018-05-22 10:43 | EKG ---
Test Reason : Blood Pressure : / mmHG Vent. Rate : 129 BPM Atrial Rate : 110 BPM P-R Int : 000 ms QRS Dur : 140 ms QT Int : 378 ms P-R-T Axes : 000 080 117 degrees QTc Int : 553 ms WIDE QRS TACHYCARDIA NON-SPECIFIC INTRA-VENTRICULAR CONDUCTION BLOCK CANNOT RULE OUT SEPTAL INFARCT , AGE UNDETERMINED POSSIBLE LATERAL INFARCT , AGE UNDETERMINED ABNORMAL ECG NO PREVIOUS ECGS AVAILABLE Confirmed by GABY HALL MD ([id number]) on 05/22/2018 10:43:05 AM Referred By: Confirmed By:GABY HALL MD
--- NOTE | 2018-05-22 11:46 | ECHO ---
Name: BALWINDER ALONDRA Exam:Adult Echocardiogram Study Date: 05/22/2018 09:31 AM Age: 62 yrs Reason For Study: CHF Height: 69 in Weight: 291 lb BSA: 2.4 m2 MMode/2D Measurements & Calculations IVSd: 1.7 cm Ao root diam: 3.2 cm LVIDd: 3.9 cm LA dimension: 4.9 cm LVIDs: 3.5 cm ACS: 1.8 cm LVPWd: 1.8 cm IVSs: 1.7 cm LVPWs: 1.9 cm EDV(Teich): 65.7 ml ESV(Teich): 51.4 ml EPSS: 1.4 cm Doppler Measurements & Calculations MV E max mike: 65.6 cm/sec Ao V2 max: 104.7 cm/sec MV A max mike: 24.7 cm/sec Ao max P.4 mmHg MV E/A: 2.7 Ao V2 mean: 70.7 cm/sec Ao mean P.4 mmHg Ao V2 VTI: 14.2 cm MR max mkie: 320.1 cm/sec TR max mike: 229.4 cm/sec MR max P.0 mmHg TR max P.1 mmHg PI end-d mike: 145.0 cm/sec Med Peak E' Mike: 4.2 cm/sec Med E/e': 15.8 Lat Peak E' Mike: 2.9 cm/sec Lat E/e': 23.0 Procedure The study was technically adequate with some images being suboptimal in quality. Left Ventricle The left ventricle is normal in size. There is moderate concentric left ventricular hypertrophy. Left ventricular systolic function is severely reduced. Ejection Fraction = 15-20%. Right Ventricle The right ventricle is mild to moderately dilated. A moderator band is seen in the right ventricle. T he right ventricular systolic function is moderate to severely reduced. Atria The left atrium is moderately dilated. Right atrial size is normal. Mitral Valve There is mild mitral valve thickening. There is mild mitral regurgitation. Tricuspid Valve The tricuspid valve is not well visualized, but is grossly normal. There is moderate tricuspid regurg itation. Right ventricular systolic pressure is elevated at 30-40mmHg. Aortic Valve The aortic valve opens well. There is mild aortic sclerosis.;. No aortic regurgitation is present. Pulmonic Valve The pulmonic valve is not well visualized. Great Vessels The aortic root is normal size. Pericardium/Pleura Trivial pericardial effusion. Interpretation Summary There is no comparison study available. The left atrium is moderately dilated. There is mild mitral valve thickening. There is mild aortic sclerosis.; The right ventricular systolic function is moderate to severely reduced. There is moderate tricuspid regurgitation. Ejection Fraction = 15-20%. There is moderate concentric left ventricular hypertrophy. The right ventricle is mild to moderately dilated. Benjamin Childers MD 05/22/2018 11:45 AM
[2018-05-22] MEDS ORDERED: ALBUTEROL SO4 8 GM HFA INHALER IH PRN (11:48)
[2018-05-22] MEDS: BACITRACIN 15 GM TUBE TOPICAL OINTMENT TP SCH (15:35)
[2018-05-22] MEDS: RIVAROXABAN 20 MG TABLET PO SCH (17:17)
[2018-05-22] MEDS: ATORVASTATIN CA 20 MG TABLET (FP) PO SCH (21:55)
[2018-05-23] MEDS: FUROSEMIDE 100 MG/10 ML INJECTABLE VIAL IVPB SCH ×2 (05:49→13:57)
[2018-05-23 06:18] LABS: BASO % 0.6 % (0-2.0); EOS % 1.9 % (0-4.5); HEMATOCRIT 36.6 % (35.4-49); HEMOGLOBIN 12.2 GM/dL (11.7-16.9); LYMPH % 12.6 % (8-40); MCH 27.1 pg (25.7-33.7); MCHC 33.2 g/dl (32.0-35.9); MEAN CELL VOLUME 81.6 fl (80-96); MEAN PLT VOLUME 11.2 fl (7.5-11.1); MONO % 10.3 % (3.8-10.2); NEUT % 74.6 % (42.8-82.8); PLATELET COUNT 148 K/MM3 (134-434); RBC 4.48 M/mm3 (4.00-5.60); RDW 19.3 % (11.9-15.9); WHITE BLOOD COUNT 6.6 K/mm3 (4.0-10.0)
[2018-05-23 06:38] LABS: ANION GAP 5 MMOL/L (8-16); BLOOD UREA NITROGEN 16 mg/dL (7-18); CHLORIDE 103 mmol/L (98-107); CO2 31 mmol/L (21-32); CREATININE 1.2 mg/dL (0.55-1.3); GLUCOSE,RANDOM 107 mg/dL (74-106); POTASSIUM 3.6 mmol/L (3.5-5.1); SODIUM 139 mmol/L (136-145)
[2018-05-23] MEDS: BACITRACIN 15 GM TUBE TOPICAL OINTMENT TP SCH ×2 (09:08→17:06)
[2018-05-23] MEDS: LISINOPRIL 10 MG TABLET (FP) PO SCH (09:08)
[2018-05-23] MEDS: SPIRONOLACTONE 25 MG TABLET (FP) PO SCH (09:08)
[2018-05-23] MEDS: BUDESONIDE/FORMETEROL FUMARATE 160/4.5 mcg INHALER IH SCH ×2 (09:09→21:26)
--- NOTE | 2018-05-23 09:55 | PN ---
Progress Note, Physician Chief Complaint: Dyspnea persists History of Present Illness: Patient was seen and examined. Awake and alert. Chart was reviewed Denies chest pain or palpitations Intermittent dyspnea Patient states that he had cardiac catheterization at [facility] in the recent past - Current Medication List Current Medications: Active Medications Albuterol Sulfate (Ventolin Hfa Inhaler -) 2 puff IH Q4H PRN PRN Reason: SHORT OF BREATH/WHEEZING Atorvastatin Calcium (Lipitor -) 20 mg PO HS [facility] Last Admin: 05/22/18 21:55 Dose: 20 mg Bacitracin (Bacitracin -) 1 applic TP DAILY [facility] Last Admin: 05/23/18 09:08 Dose: 1 appful Budesonide/Formoterol Fumarate (Symbicort 160/4.5mcg -) 2 puff IH BID [facility] Last Admin: 05/23/18 09:09 Dose: 2 puff Furosemide (Lasix Injection -) 100 mg IVPB BIDLASIX [facility] Last Admin: 05/23/18 05:49 Dose: 100 mg Lisinopril (Prinivil) 10 mg PO DAILY [facility] Last Admin: 05/23/18 09:08 Dose: 10 mg Metoprolol Succinate (Toprol Xl -) 50 mg PO BID [facility] Last Admin: 05/23/18 09:09 Dose: 50 mg Metoprolol Tartrate (Lopressor Injection -) 5 mg IVPUSH Q4H PRN PRN Reason: TACHYCARDIA Rivaroxaban (Xarelto -) 20 mg PO DAILY@1800 [facility] Last Admin: 05/22/18 17:17 Dose: 20 mg Spironolactone (Aldactone -) 25 mg PO DAILY [facility] Last Admin: 05/23/18 09:08 Dose: 25 mg - Objective Vital Signs: Vital Signs Temperature 98.1 F 05/23/18 08:41 Pulse Rate 80 05/23/18 08:41 Respiratory Rate 20 05/23/18 08:39 Blood Pressure 157/106 H 05/23/18 08:41 O2 Sat by Pulse Oximetry (%) 94 L 05/23/18 08:39 Eyes: Yes: PERRL HENT: Yes: Atraumatic Neck: Yes: Supple Cardiovascular: Yes: Regular Rate and Rhythm, Murmur (SM), S1, S2 Respiratory: Yes: Diminished Gastrointestinal: Yes: Normal Bowel Sounds, Abdomen, Obese, Ascites. No: Tenderness Edema: Yes Additional Findings/Remarks: - Review of Systems Constitutional: denies: Chills, Fever Cardiovascular: reports: Palpitations, Shortness of Breath. denies: Chest Pain Respiratory: reports: Cough. denies: Hemoptysis, Orthopnea, PND Gastrointestinal: reports: Diarrhea. denies: Abdominal Pain, Melena, Nausea, Rectal Bleeding, Vomiting Neurological: denies: Dizziness, Headache, Seizure, Syncope Labs: CBC, BMP 05/23/18 05:30 05/23/18 05:30 Problem List - Problems (1) Afib Code(s): I48.91 - UNSPECIFIED ATRIAL FIBRILLATION Qualifiers: Atrial fibrillation type: paroxysmal Qualified Code(s): I48.0 - Paroxysmal atrial fibrillation (2) Anasarca Code(s): R60.1 - GENERALIZED EDEMA (3) Ascites Code(s): R18.8 - OTHER ASCITES (4) COPD (chronic obstructive pulmonary disease) Code(s): J44.9 - CHRONIC OBSTRUCTIVE PULMONARY DISEASE, UNSPECIFIED (5) HTN (hypertension) Code(s): I10 - ESSENTIAL (PRIMARY) HYPERTENSION Qualifiers: Hypertension type: essential hypertension Qualified Code(s): I10 - Essential (primary) hypertension (6) Heart failure, systolic, with acute decompensation Code(s): I50.23 - ACUTE ON CHRONIC SYSTOLIC (CONGESTIVE) HEART FAILURE (7) Hypercholesteremia Code(s): E78.00 - PURE HYPERCHOLESTEROLEMIA, UNSPECIFIED (8) Morbid obesity with BMI of 40.0-44.9, adult Code(s): E66.01 - MORBID (SEVERE) OBESITY DUE TO EXCESS CALORIES; Z68.41 - BODY MASS INDEX (BMI) 40.0-44.9, ADULT (9) Respiratory distress Code(s): R06.03 - ACUTE RESPIRATORY DISTRESS (10) T2DM (type 2 diabetes mellitus) Code(s): E11.9 - TYPE 2 DIABETES MELLITUS WITHOUT COMPLICATIONS Assessment/Plan 1. Ascites 2. Pleural effusion and acute on chronic diastolic +/- systolic LV dysfunction with class 1-2 NYHA LV failure 3. HTN 4. Hypercholesterolemia 5. ? AF with RVR on DOAC, wide complex suggests underlying nonspecific conduction delay vs. LBBB 6. Generalized weakness 7. DM 8. Exogenous obesity PLAN: 1. Continue diuretics and monitor renal function and electrolytes 2. Continue Aldactone 3. Change Toprol XL to Carvediolo 12.5 mg BID (uptitrate)and Prinivil as tolerated. Lopressor IV for added rate control 4. Continue Xarelto 5. Further management on ascites for therapeutic and diagnostic evaluation 6. Bronchodilator as needed 7. Echocardiography was reviewed. Obtain cardiac cath report from [facility] 8. In view of severe LV systolic dysfunction, need to address OPERATION MANAGER-D implant but timing is to be decided usually 90 days past diagnosis of cardiomyopathy 9. Statin therapy Further plans are to follow Christofer Montgomery MD
--- NOTE | 2018-05-23 13:18 | PN ---
Physical Exam: SUBJECTIVE: Patient seen and examined at the bedside. in no acute distress. still having dyspnea with exertion. OBJECTIVE: Vital Signs Period Temp Pulse Resp BP Sys/Rosado Pulse Ox Last 24 Hr 97.6 F-98.8 F 80-95 18-20 119-157/70-106 93-94 GENERAL: The patient is awake, alert, and fully oriented, in no acute distress. HEAD: Normal with no signs of trauma. EYES: PERRL, extraocular movements intact, sclera anicteric, conjunctiva clear. No ptosis. ENT: Ears normal, nares patent, oropharynx clear without exudates, moist mucous membranes. NECK: Trachea midline, full range of motion, supple. LUNGS: diminished bilateraly ABDOMEN: Soft, nontender, nondistended, normoactive bowel sounds, no guarding, no rebound, no hepatosplenomegaly, no masses. EXTREMITIES: 2+ pulses, warm, well-perfused, no edema. NEUROLOGICAL: Cranial nerves II through XII grossly intact. Normal speech, gait not observed. PSYCH: Normal mood, normal affect. SKIN: Warm, dry, normal turgor, no rashes or lesions noted Laboratory Results - last 24 hr 05/23/18 05/23/18 05:30 05:30 WBC 6.6 RBC 4.48 Hgb 12.2 Hct 36.6 MCV 81.6 MCH 27.1 MCHC 33.2 RDW 19.3 H Plt Count 148 MPV 11.2 H Absolute Neuts (auto) 4.9 Neutrophils % 74.6 Lymphocytes % 12.6 D Monocytes % 10.3 H Eosinophils % 1.9 D Basophils % 0.6 Nucleated RBC % 0 Sodium 139 Potassium 3.6 Chloride 103 Carbon Dioxide 31 Anion Gap 5 L BUN 16 Creatinine 1.2 Creat Clearance w eGFR 61.35 Random Glucose 107 H Calcium 8.0 L Active Medications Generic Name Dose Route Start Last Admin Trade Name Freq PRN Reason Stop Dose Admin Albuterol Sulfate 2 puff 05/22/18 11:48 Ventolin Hfa Inhaler - IH Q4H PRN SHORT OF BREATH/WHEEZING Atorvastatin Calcium 20 mg 05/21/18 22:00 05/22/18 21:55 Lipitor - PO 20 mg HS SOWMYA Administration Bacitracin 1 applic 05/22/18 12:00 05/23/18 09:08 Bacitracin - TP 1 appful DAILY SOWMYA Administration Budesonide/Formoterol Fumarate 2 puff 05/19/18 22:00 05/23/18 09:09 Symbicort 160/4.5mcg - IH 2 puff BID SOWMYA Administration Carvedilol 12.5 mg 05/23/18 10:15 Coreg - PO BID SOWMYA Furosemide 100 mg 05/21/18 08:00 05/23/18 05:49 Lasix Injection - IVPB 100 mg BIDLASIX SOWMYA Administration Lisinopril 10 mg 05/21/18 10:00 05/23/18 09:08 Prinivil PO 10 mg DAILY SOWMYA Administration Metoprolol Tartrate 5 mg 05/19/18 18:06 Lopressor Injection - IVPUSH Q4H PRN TACHYCARDIA Rivaroxaban 20 mg 05/19/18 18:15 05/22/18 17:17 Xarelto - PO 20 mg DAILY@1800 SOWMYA Administration Spironolactone 25 mg 05/19/18 18:15 05/23/18 09:08 Aldactone - PO 25 mg DAILY SOWMYA Administration ASSESSMENT/PLAN: Patient is a 62 year old male admitted on 05/19/18 with progressively worsening SOB x 4 days associated wtih dry cough, poor PO intake, generalized fatigue and inability to ambulate due to dyspnea. Patient states that this has been progressively worsening since his discharge last month from [facility] where he was hospitalized for CHF exacerbation. States that he had a paracentesis at that time where 2.8L were removed. Patient denies CP, fever, chills, N/V/C/D or orthopnea, denies abdominal pain. Card: Congestive Heart failure Systolic heart failure Elevated BNP, volume overload On beta blockers and lasix 100mg bid monitor intake and output, daily weights and electrolytes ascites seen on abdominal u/s Hypertension. controlled coreq 12.5 mg bid. cardiology following Atrial fibrillation. on xarelto rate controlled Endocrine Diabetes hmga1c 6.4. monitor serum glucose with am. labs. if elevated start SS. General: Morbid obesity Dietary follow up COPD tolerarting room air fen monitor intake and output low salt diet Visit type - Emergency Visit Emergency Visit: Yes ED Registration Date: 05/19/18 Care time: The patient presented to the Emergency Department on the above date and was hospitalized for further evaluation of their emergent condition. - New Patient This patient is new to me today: Yes Date on this admission: 05/23/18 - Critical Care Critical Care patient: No - Discharge Referral Referred to [facility] Med [facility] No
[2018-05-23] MEDS: CARVEDILOL 12.5 MG TABLET (FP) PO SCH ×2 (13:57→21:26)
[2018-05-23] MEDS: RIVAROXABAN 20 MG TABLET PO SCH (17:37)
[2018-05-23] MEDS: ATORVASTATIN CA 20 MG TABLET (FP) PO SCH (21:26)
[2018-05-24] MEDS: FUROSEMIDE 100 MG/10 ML INJECTABLE VIAL IVPB SCH ×3 (06:15→13:48)
[2018-05-24] MEDS: BUDESONIDE/FORMETEROL FUMARATE 160/4.5 mcg INHALER IH SCH ×2 (09:37→21:11)
[2018-05-24] MEDS: LISINOPRIL 10 MG TABLET (FP) PO SCH (09:38)
[2018-05-24] MEDS: CARVEDILOL 12.5 MG TABLET (FP) PO SCH ×2 (09:38→21:11)
[2018-05-24] MEDS: SPIRONOLACTONE 25 MG TABLET (FP) PO SCH (09:38)
[2018-05-24] MEDS: BACITRACIN 15 GM TUBE TOPICAL OINTMENT TP SCH (09:38)
[2018-05-24 10:08] LABS: BASO % 0.8 % (0-2.0); EOS % 2.5 % (0-4.5); HEMATOCRIT 36.1 % (35.4-49); HEMOGLOBIN 11.5 GM/dL (11.7-16.9); LYMPH % 11.2 % (8-40); MCH 26.1 pg (25.7-33.7); MCHC 31.9 g/dl (32.0-35.9); MEAN CELL VOLUME 81.8 fl (80-96); MEAN PLT VOLUME 11.1 fl (7.5-11.1); MONO % 10.1 % (3.8-10.2); NEUT % 75.4 % (42.8-82.8); PLATELET COUNT 144 K/MM3 (134-434); RBC 4.42 M/mm3 (4.00-5.60); RDW 19.8 % (11.9-15.9); WHITE BLOOD COUNT 6.2 K/mm3 (4.0-10.0)
[2018-05-24 10:30] LABS: ALBUMIN 2.6 g/dl (3.4-5.0); ALK PHOS 115 U/L (45-117); ANION GAP 5 MMOL/L (8-16); BILIRUBIN,TOTAL 0.8 mg/dL (0.2-1); BLOOD UREA NITROGEN 18 mg/dL (7-18); CALCIUM 8.3 mg/dL (8.5-10.1); CHLORIDE 102 mmol/L (98-107); CO2 35 mmol/L (21-32); CREATININE 1.3 mg/dL (0.55-1.3); GLUCOSE,RANDOM 126 mg/dL (74-106); MAGNESIUM 1.8 mg/dL (1.8-2.4); POTASSIUM 3.6 mmol/L (3.5-5.1); SGOT/AST 25 U/L (15-37); SGPT/ALT 12 U/L (13-61); SODIUM 141 mmol/L (136-145)
--- NOTE | 2018-05-24 13:18 | PN ---
Progress Note, Physician History of Present Illness: TOMLINSON improving with diuresis, denies orthopnea. - Current Medication List Current Medications: Active Medications Albuterol Sulfate (Ventolin Hfa Inhaler -) 2 puff IH Q4H PRN PRN Reason: SHORT OF BREATH/WHEEZING Atorvastatin Calcium (Lipitor -) 20 mg PO HS [facility] Last Admin: 05/23/18 21:26 Dose: 20 mg Bacitracin (Bacitracin -) 1 applic TP DAILY [facility] Last Admin: 05/24/18 09:38 Dose: 1 applic Budesonide/Formoterol Fumarate (Symbicort 160/4.5mcg -) 2 puff IH BID [facility] Last Admin: 05/24/18 09:37 Dose: 2 puff Carvedilol (Coreg -) 12.5 mg PO BID [facility] Last Admin: 05/24/18 09:38 Dose: 12.5 mg Furosemide (Lasix Injection -) 100 mg IVPB BIDLASIX [facility] Last Admin: 05/24/18 06:15 Dose: 100 mg Lisinopril (Prinivil) 10 mg PO DAILY [facility] Last Admin: 05/24/18 09:38 Dose: 10 mg Metoprolol Tartrate (Lopressor Injection -) 5 mg IVPUSH Q4H PRN PRN Reason: TACHYCARDIA Rivaroxaban (Xarelto -) 20 mg PO DAILY@1800 [facility] Last Admin: 05/23/18 17:37 Dose: 20 mg Spironolactone (Aldactone -) 25 mg PO DAILY [facility] Last Admin: 05/24/18 09:38 Dose: 25 mg - Objective Vital Signs: Vital Signs Temperature 97.9 F 05/24/18 09:52 Pulse Rate 72 05/24/18 09:52 Respiratory Rate 20 05/24/18 09:52 Blood Pressure 135/65 05/24/18 09:52 O2 Sat by Pulse Oximetry (%) 98 05/24/18 07:25 Constitutional: Yes: No Distress, Calm Neck: Yes: Supple Cardiovascular: Yes: Pulse Irregular, Murmur (2/6 SM) Respiratory: Yes: Regular, Diminished Gastrointestinal: Yes: Normal Bowel Sounds, Soft, Abdomen, Obese Edema: Yes Edema: LLE: 2+, RLE: 2+ Wound/Incision: Yes: Clean/Dry Labs: CBC, BMP 05/24/18 09:20 05/24/18 09:20 INR, PTT INR 1.42 (0.83-1.09) H 05/19/18 15:35 Problem List - Problems (1) Afib Code(s): I48.91 - UNSPECIFIED ATRIAL FIBRILLATION Qualifiers: Atrial fibrillation type: persistent Qualified Code(s): I48.1 - Persistent atrial fibrillation (2) Anasarca Code(s): R60.1 - GENERALIZED EDEMA (3) Ascites Code(s): R18.8 - OTHER ASCITES Qualifiers: Ascites type: other type Qualified Code(s): R18.8 - Other ascites (4) HTN (hypertension) Code(s): I10 - ESSENTIAL (PRIMARY) HYPERTENSION Qualifiers: Hypertension type: essential hypertension Qualified Code(s): I10 - Essential (primary) hypertension (5) Heart failure, systolic, with acute decompensation Code(s): I50.23 - ACUTE ON CHRONIC SYSTOLIC (CONGESTIVE) HEART FAILURE (6) Hypercholesteremia Code(s): E78.00 - PURE HYPERCHOLESTEROLEMIA, UNSPECIFIED (7) Morbid obesity with BMI of 40.0-44.9, adult Code(s): E66.01 - MORBID (SEVERE) OBESITY DUE TO EXCESS CALORIES; Z68.41 - BODY MASS INDEX (BMI) 40.0-44.9, ADULT (8) T2DM (type 2 diabetes mellitus) Code(s): E11.9 - TYPE 2 DIABETES MELLITUS WITHOUT COMPLICATIONS Qualifiers: Diabetes mellitus long-term insulin use: without long-term use Diabetes mellitus complication status: with unspecified complications Qualified Code(s) : E11.8 - Type 2 diabetes mellitus with unspecified complications Assessment/Plan 05/22/2018 Echo: Mod LAE, mod-severe RV fxn, mod TR, severe decreased LV fxn LVEF 15-20%, mod cLVH 1. Acute hypoxic respiratory failure 2. Acute on chronic diastolic and systolic LV failure and pleural effusions resolving 3. HTN cardiomyopathy 4. Hypercholesterolemia 5. AF with RVR on DOAC, wide complex suggests underlying nonspecific conduction delay vs. LBBB 6. Ascites 7. DM 8. Exogenous obesity PLAN: 1. Decrease IV diuresis with monitor diuretic response, renal function and electrolytes, replete K and Mg 2. Continue Aldactone 25 qd 3. Continue Carvediolo 12.5 mg BID and increase Prinivil 20 qd with uptitration as tolerated. Lopressor IV for added rate control 4. Continue Xarelto 20 qd and Lipitor 20 qhs 5. Further management on ascites for therapeutic and diagnostic evaluation 6. Bronchodilator as needed 7. Echocardiography was reviewed. 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
[2018-05-24] MEDS ORDERED: FUROSEMIDE 40 MG/4 ML INJECTABLE VIAL ONE (13:47)
--- NOTE | 2018-05-24 13:51 | PN ---
Physical Exam: SUBJECTIVE: Patient seen and examined at the bedside. in no acute distress. feels well. still having some shortness of breath. OBJECTIVE: Vital Signs Period Temp Pulse Resp BP Sys/Rosado Pulse Ox Last 24 Hr 97.3 F-98.0 F 72-85 18-20 114-140/65-96 98-98 GENERAL: The patient is awake, alert, and fully oriented, in no acute distress. HEAD: Normal with no signs of trauma. EYES: PERRL, extraocular movements intact, sclera anicteric, conjunctiva clear. No ptosis. ENT: Ears normal, nares patent, oropharynx clear without exudates, moist mucous membranes. NECK: Trachea midline, full range of motion, supple. LUNGS: diminished bilateraly ABDOMEN: Soft, nontender, nondistended, normoactive bowel sounds, no guarding, no rebound, no hepatosplenomegaly, no masses. EXTREMITIES: 2+ pulses, warm, well-perfused, no edema. NEUROLOGICAL: Cranial nerves II through XII grossly intact. Normal speech, gait not observed. PSYCH: Normal mood, normal affect. SKIN: Warm, dry, normal turgor, no rashes or lesions noted Laboratory Results - last 24 hr 05/24/18 05/24/18 09:20 09:20 WBC 6.2 RBC 4.42 Hgb 11.5 L Hct 36.1 MCV 81.8 MCH 26.1 MCHC 31.9 L RDW 19.8 H Plt Count 144 MPV 11.1 Absolute Neuts (auto) 4.7 Neutrophils % 75.4 Lymphocytes % 11.2 Monocytes % 10.1 Eosinophils % 2.5 Basophils % 0.8 Nucleated RBC % 0 Sodium 141 Potassium 3.6 Chloride 102 Carbon Dioxide 35 H Anion Gap 5 L BUN 18 Creatinine 1.3 Creat Clearance w eGFR 55.94 Random Glucose 126 H Calcium 8.3 L Magnesium 1.8 Total Bilirubin 0.8 AST 25 ALT 12 L Alkaline Phosphatase 115 Total Protein 6.0 L Albumin 2.6 L Active Medications Generic Name Dose Route Start Last Admin Trade Name Freq PRN Reason Stop Dose Admin Albuterol Sulfate 2 puff 05/22/18 11:48 Ventolin Hfa Inhaler - IH Q4H PRN SHORT OF BREATH/WHEEZING Atorvastatin Calcium 20 mg 05/21/18 22:00 05/23/18 21:26 Lipitor - PO 20 mg HS SOWMYA Administration Bacitracin 1 applic 05/23/18 15:45 05/24/18 09:38 Bacitracin - TP 1 applic DAILY SOWMYA Administration Budesonide/Formoterol Fumarate 2 puff 05/19/18 22:00 05/24/18 09:37 Symbicort 160/4.5mcg - IH 2 puff BID SOWMYA Administration Carvedilol 12.5 mg 05/23/18 10:15 05/24/18 09:38 Coreg - PO 12.5 mg BID SOWMYA Administration Furosemide 40 mg 05/24/18 14:00 05/24/18 13:48 Lasix Injection - IVPB 40 mg BIDLASIX SOWMYA Administration Lisinopril 20 mg 05/24/18 13:27 Prinivil PO DAILY SOWMYA Magnesium Oxide 800 mg 05/24/18 14:00 05/24/18 13:48 Mag-Ox - PO 05/24/18 14:01 800 mg ONCE ONE Administration Metoprolol Tartrate 5 mg 05/19/18 18:06 Lopressor Injection - IVPUSH Q4H PRN TACHYCARDIA Potassium Chloride 40 meq 05/24/18 14:00 05/24/18 13:48 K-Dur - PO 05/24/18 14:01 40 meq ONCE ONE Administration Rivaroxaban 20 mg 05/19/18 18:15 05/23/18 17:37 Xarelto - PO 20 mg DAILY@1800 SOWMYA Administration Spironolactone 25 mg 05/19/18 18:15 05/24/18 09:38 Aldactone - PO 25 mg DAILY SOWMYA Administration ASSESSMENT/PLAN: Patient is a 62 year old male admitted on 05/19/18 with progressively worsening SOB x 4 days associated wtih dry cough, poor PO intake, generalized fatigue and inability to ambulate due to dyspnea. Patient states that this has been progressively worsening since his discharge last month from [facility] where he was hospitalized for CHF exacerbation. States that he had a paracentesis at that time where 2.8L were removed. Patient denies CP, fever, chills, N/V/C/D or orthopnea, denies abdominal pain. Card: Congestive Heart failure Systolic heart failure Elevated BNP, volume overload On beta blockers and lasix 40mg bid monitor intake and output, daily weights decreased from 129k> 124kg. ascites seen on abdominal u/s. will ask IR to evaluate, however, patient is on xarelto. Hypertension. controlled coreq 12.5 mg bid. cardiology following Atrial fibrillation. on xarelto rate controlled Endocrine Diabetes hmga1c 6.4. monitor serum glucose with am. labs. if elevated start SS. General: Morbid obesity Dietary follow up COPD tolerarting room air fen monitor intake and output low salt diet Visit type - Emergency Visit Emergency Visit: Yes ED Registration Date: 05/19/18 Care time: The patient presented to the Emergency Department on the above date and was hospitalized for further evaluation of their emergent condition. - New Patient This patient is new to me today: Yes Date on this admission: 06/16/18 - Critical Care Critical Care patient: No - Discharge Referral Referred to [facility] Med P.C.: No
[2018-05-24] MEDS ORDERED: POTASSIUM CHLORIDE TABS 20 MEQ TABLET.ER (FP) PO ONE (14:00)
[2018-05-24] MEDS ORDERED: MAGNESIUM OXIDE 400 MG TABLET (FP) PO ONE (14:00)
[2018-05-24] MEDS: RIVAROXABAN 20 MG TABLET PO SCH (17:11)
[2018-05-24] MEDS: ATORVASTATIN CA 20 MG TABLET (FP) PO SCH (21:11)
[2018-05-25] MEDS ORDERED: ACETAMINOPHEN 325 MG TABLET (FP) PO ONE (04:12)
[2018-05-25] MEDS: FUROSEMIDE 100 MG/10 ML INJECTABLE VIAL IVPB SCH ×2 (06:13→14:50)
--- NOTE | 2018-05-25 09:06 | PN ---
Progress Note, Physician History of Present Illness: TOMLINSON improving with diuresis, denies orthopnea. - Current Medication List Current Medications: Active Medications Albuterol Sulfate (Ventolin Hfa Inhaler -) 2 puff IH Q4H PRN PRN Reason: SHORT OF BREATH/WHEEZING Atorvastatin Calcium (Lipitor -) 20 mg PO HS [facility] Last Admin: 05/24/18 21:11 Dose: 20 mg Bacitracin (Bacitracin -) 1 applic TP DAILY [facility] Last Admin: 05/24/18 09:38 Dose: 1 applic Budesonide/Formoterol Fumarate (Symbicort 160/4.5mcg -) 2 puff IH BID [facility] Last Admin: 05/24/18 21:11 Dose: 2 puff Carvedilol (Coreg -) 12.5 mg PO BID [facility] Last Admin: 05/24/18 21:11 Dose: 12.5 mg Furosemide (Lasix Injection -) 40 mg IVPB BIDLASIX [facility] Last Admin: 05/25/18 06:13 Dose: 40 mg Lisinopril (Prinivil) 20 mg PO DAILY [facility] Metoprolol Tartrate (Lopressor Injection -) 5 mg IVPUSH Q4H PRN PRN Reason: TACHYCARDIA Rivaroxaban (Xarelto -) 20 mg PO DAILY@1800 [facility] Last Admin: 05/24/18 17:11 Dose: 20 mg Spironolactone (Aldactone -) 25 mg PO DAILY [facility] Last Admin: 05/24/18 09:38 Dose: 25 mg - Objective Vital Signs: Vital Signs Temperature 97.6 F 05/25/18 06:00 Pulse Rate 65 05/25/18 06:00 Respiratory Rate 20 05/25/18 06:00 Blood Pressure 147/75 05/25/18 06:00 O2 Sat by Pulse Oximetry (%) 98 05/24/18 21:00 Constitutional: Yes: No Distress, Calm Neck: Yes: Supple Cardiovascular: Yes: Regular Rate and Rhythm Respiratory: Yes: Regular, Diminished Gastrointestinal: Yes: Normal Bowel Sounds, Distention Edema: Yes Edema: LLE: 2+, RLE: 2+ Integumentary: Yes: Venous Stasis Changes Labs: CBC, BMP 05/24/18 09:20 05/24/18 09:20 INR, PTT INR 1.42 (0.83-1.09) H 05/19/18 15:35 Problem List - Problems (1) Afib Code(s): I48.91 - UNSPECIFIED ATRIAL FIBRILLATION Qualifiers: Atrial fibrillation type: persistent Qualified Code(s): I48.1 - Persistent atrial fibrillation (2) Anasarca Code(s): R60.1 - GENERALIZED EDEMA (3) Ascites Code(s): R18.8 - OTHER ASCITES Qualifiers: Ascites type: other type Qualified Code(s): R18.8 - Other ascites (4) HTN (hypertension) Code(s): I10 - ESSENTIAL (PRIMARY) HYPERTENSION Qualifiers: Hypertension type: essential hypertension Qualified Code(s): I10 - Essential (primary) hypertension (5) Heart failure, systolic, with acute decompensation Code(s): I50.23 - ACUTE ON CHRONIC SYSTOLIC (CONGESTIVE) HEART FAILURE (6) Hypercholesteremia Code(s): E78.00 - PURE HYPERCHOLESTEROLEMIA, UNSPECIFIED (7) Morbid obesity with BMI of 40.0-44.9, adult Code(s): E66.01 - MORBID (SEVERE) OBESITY DUE TO EXCESS CALORIES; Z68.41 - BODY MASS INDEX (BMI) 40.0-44.9, ADULT (8) T2DM (type 2 diabetes mellitus) Code(s): E11.9 - TYPE 2 DIABETES MELLITUS WITHOUT COMPLICATIONS Qualifiers: Diabetes mellitus medical terminologist insulin use: without longterm use Diabetes mellitus complication status: with unspecified complications Qualified Code(s) : E11.8 - Type 2 diabetes mellitus with unspecified complications Assessment/Plan 05/22/2018 Echo: Mod LAE, mod-severe RV fxn, mod TR, severe decreased LV fxn LVEF 15-20%, mod cLVH 09/30/2017 R&LHc at [facility]: Minor nonobstructive CAD, severe LV dysfunction, mod MR , severely elevated LVEDP and pulmonary pressures, low cardiac output, LVEF 20% 1. Acute hypoxic respiratory failure 2. Acute on chronic diastolic and systolic LV failure and pleural effusions resolving 3. HTN cardiomyopathy 4. Hypercholesterolemia 5. AF with RVR on DOAC, wide complex suggests underlying nonspecific conduction delay vs. LBBB 6. Ascites 7. DM 8. Exogenous obesity PLAN: 1. IV diuresis with monitor diuretic response, renal function and electrolytes, replete K and Mg 2. Increase Aldactone 50 qd 3. Continue Carvediol 12.5 mg BID and Prinivil 20 qd with uptitration as tolerated. Lopressor IV for added rate control 4. Continue Xarelto 20 qd and Lipitor 20 qhs 5. Further management on ascites for therapeutic and diagnostic evaluation 6. Bronchodilator as needed, wrap legs 7. Echocardiography and cath was reviewed. 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
[2018-05-25] MEDS ORDERED: SPIRONOLACTONE 25 MG TABLET (FP) PO ONE (09:12)
[2018-05-25] MEDS: CARVEDILOL 12.5 MG TABLET (FP) PO SCH ×2 (09:27→21:34)
[2018-05-25] MEDS: LISINOPRIL 10 MG TABLET (FP) PO SCH (09:27)
[2018-05-25] MEDS: BUDESONIDE/FORMETEROL FUMARATE 160/4.5 mcg INHALER IH SCH ×2 (09:30→21:37)
[2018-05-25 10:23] LABS: BASO % 0.7 % (0-2.0); EOS % 1.8 % (0-4.5); HEMATOCRIT 35.1 % (35.4-49); HEMOGLOBIN 11.4 GM/dL (11.7-16.9); LYMPH % 11.6 % (8-40); MCH 26.8 pg (25.7-33.7); MCHC 32.4 g/dl (32.0-35.9); MEAN CELL VOLUME 82.6 fl (80-96); MEAN PLT VOLUME 11.6 fl (7.5-11.1); MONO % 10.3 % (3.8-10.2); NEUT % 75.6 % (42.8-82.8); PLATELET COUNT 147 K/MM3 (134-434); RBC 4.24 M/mm3 (4.00-5.60); RDW 19.5 % (11.9-15.9); WHITE BLOOD COUNT 6.1 K/mm3 (4.0-10.0)
[2018-05-25] MEDS: SPIRONOLACTONE 25 MG TABLET (FP) PO SCH (10:24)
[2018-05-25 11:07] LABS: ALBUMIN 2.8 g/dl (3.4-5.0); ALK PHOS 148 U/L (45-117); ANION GAP 3 MMOL/L (8-16); BILIRUBIN,TOTAL 0.7 mg/dL (0.2-1); BLOOD UREA NITROGEN 21 mg/dL (7-18); CALCIUM 8.2 mg/dL (8.5-10.1); CHLORIDE 100 mmol/L (98-107); CO2 34 mmol/L (21-32); CREATININE 1.2 mg/dL (0.55-1.3); GLUCOSE,RANDOM 114 mg/dL (74-106); MAGNESIUM 1.7 mg/dL (1.8-2.4); POTASSIUM 3.9 mmol/L (3.5-5.1); SGOT/AST 31 U/L (15-37); SGPT/ALT 17 U/L (13-61); SODIUM 137 mmol/L (136-145); TOT PROT 6.5 g/dl (6.4-8.2)
[2018-05-25] MEDS ORDERED: HEPARIN NA (PORCINE) 5,000 UNITS/ML 1ML VIAL IVPUSH PRN (14:00)
--- NOTE | 2018-05-25 14:01 | PN ---
Physical Exam: SUBJECTIVE: Patient seen and examined at the bedside. feels his abdomen is more swollen. OBJECTIVE: abdomen appears more distended today u/s 05/19 shows moderate amt of ascites will consult IR for possible paracentesis. will stop xarelto and start heparin gtt in anticipation of paracentesis. will get repeat abdomen u/s Vital Signs Period Temp Pulse Resp BP Sys/Rosado Pulse Ox Last 24 Hr 97.4 F-98 F 64-83 18-20 103-147/61-85 98 GENERAL: The patient is awake, alert, and fully oriented, in no acute distress. HEAD: Normal with no signs of trauma. EYES: PERRL, extraocular movements intact, sclera anicteric, conjunctiva clear. No ptosis. ENT: Ears normal, nares patent, oropharynx clear without exudates, moist mucous membranes. NECK: Trachea midline, full range of motion, supple. LUNGS: diminished bilateraly ABDOMEN: Soft, nontender, nondistended, normoactive bowel sounds, no guarding, no rebound, no hepatosplenomegaly, no masses. EXTREMITIES: 2+ pulses, warm, well-perfused, no edema. NEUROLOGICAL: Cranial nerves II through XII grossly intact. Normal speech, gait not observed. PSYCH: Normal mood, normal affect. SKIN: lower ext with disoloration and leg wounds. legs cleaned and bacitracin added. legs wrapped in verónica. Laboratory Results - last 24 hr 05/24/18 05/25/18 05/25/18 21:10 05:45 06:00 WBC RBC Hgb Hct MCV MCH MCHC RDW Plt Count MPV Absolute Neuts (auto) Neutrophils % Lymphocytes % Monocytes % Eosinophils % Basophils % Nucleated RBC % Sodium 137 Potassium 3.9 Chloride 100 Carbon Dioxide 34 H Anion Gap 3 L BUN 21 H Creatinine 1.2 Creat Clearance w eGFR 61.35 POC Glucometer 149 105 Random Glucose 114 H Calcium 8.2 L Magnesium 1.7 L Total Bilirubin 0.7 AST 31 ALT 17 Alkaline Phosphatase 148 H Total Protein 6.5 Albumin 2.8 L 05/25/18 09:20 WBC 6.1 RBC 4.24 Hgb 11.4 L Hct 35.1 L MCV 82.6 MCH 26.8 MCHC 32.4 RDW 19.5 H Plt Count 147 MPV 11.6 H Absolute Neuts (auto) 4.6 Neutrophils % 75.6 Lymphocytes % 11.6 Monocytes % 10.3 H Eosinophils % 1.8 Basophils % 0.7 Nucleated RBC % 0 Sodium Potassium Chloride Carbon Dioxide Anion Gap BUN Creatinine Creat Clearance w eGFR POC Glucometer Random Glucose Calcium Magnesium Total Bilirubin AST ALT Alkaline Phosphatase Total Protein Albumin Active Medications Generic Name Dose Route Start Last Admin Trade Name Freq PRN Reason Stop Dose Admin Albuterol Sulfate 2 puff 05/22/18 11:48 Ventolin Hfa Inhaler - IH Q4H PRN SHORT OF BREATH/WHEEZING Atorvastatin Calcium 20 mg 05/21/18 22:00 05/24/18 21:11 Lipitor - PO 20 mg HS SOWMYA Administration Bacitracin 1 applic 05/23/18 15:45 05/24/18 09:38 Bacitracin - TP 1 applic DAILY SOWMYA Administration Budesonide/Formoterol Fumarate 2 puff 05/19/18 22:00 05/25/18 09:30 Symbicort 160/4.5mcg - IH 2 puff BID SOWMYA Administration Carvedilol 12.5 mg 05/23/18 10:15 05/25/18 09:27 Coreg - PO 12.5 mg BID SOWMYA Administration Furosemide 40 mg 05/24/18 14:00 05/25/18 06:13 Lasix Injection - IVPB 40 mg BIDLASIX SOWMYA Administration Heparin Sodium (Porcine) 1,000 unit 05/25/18 14:00 Heparin - IVPUSH PRN PRN Heparin Heparin Sodium (Porcine) 5,000 unit 05/25/18 14:00 Heparin - IVPUSH PRN PRN Heparin Heparin Sodium (Porcine) 25, 500 mls @ 20 mls/hr 05/25/18 14:00 000 unit/ Sodium Chloride IV TITR SOWMYA Protocol 1,000 UNIT/HR Lisinopril 20 mg 05/24/18 13:27 05/25/18 09:27 Prinivil PO 20 mg DAILY SOWMYA Administration Metoprolol Tartrate 5 mg 05/19/18 18:06 Lopressor Injection - IVPUSH Q4H PRN TACHYCARDIA Spironolactone 50 mg 05/25/18 09:12 05/25/18 10:24 Aldactone - PO 50 mg DAILY SOWMYA Administration ASSESSMENT/PLAN: Patient is a 62 year old male admitted on 05/19/18 with progressively worsening SOB x 4 days associated with dry cough, poor PO intake, generalized fatigue and inability to ambulate due to dyspnea. Patient states that this has been progressively worsening since his discharge last month from [facility] where he was hospitalized for CHF exacerbation. States that he had a paracentesis at that time where 2.8L were removed. Patient denies CP, fever, chills, N/V/C/D or orthopnea, denies abdominal pain. imaging: echo: left atrium moderately dilated, mild mitral valve thickening,mild aortic sclerosis. mod tricusp regur. ef 15-20% Card: Congestive Heart failure. Systolic heart failure echo shows 15%-20%, bnp [id number] clinically with volume overload, distended abdomen and lower ext weeping edema. On beta blockers, lasix 40mg IV bid and Aldactone 50 qd monitor intake and output, daily weights decreased from 129k> 124kg. ascites seen on abdominal u/s. will ask IR to evaluate, however, patient is on xarelto which is now on hold for anticipation of paracentesis. now on heparin drip. Possible [employer]ILL device per cardiology. Hypertension. controlled coreq 12.5 mg bid. cardiology following Atrial fibrillation. hold xarelto, start heparin gtt rate controlled Endocrine Diabetes hmga1c 6.4. monitor serum glucose with am. labs. if elevated start SS. General: Morbid obesity Dietary follow up COPD tolerating room air not in exacerbation fen monitor intake and output low salt diet Visit type - Emergency Visit Emergency Visit: Yes ED Registration Date: 05/19/18 Care time: The patient presented to the Emergency Department on the above date and was hospitalized for further evaluation of their emergent condition. - New Patient This patient is new to me today: No - Critical Care Critical Care patient: No - Discharge Referral Referred to [facility] Med P.C.: No
[2018-05-25] MEDS: BACITRACIN 15 GM TUBE TOPICAL OINTMENT TP SCH (14:51)
[2018-05-25] MEDS ORDERED: PT OWN MED DRAWER 7, Y5N ONE (16:01)
[2018-05-25] MEDS: HEPARIN - 25,000 UNIT in SODIUM CHLORIDE 495 ML IV SCH (16:22)
[2018-05-25] MEDS: ACETAMINOPHEN 325 MG TABLET (FP) PO PRN (19:57)
[2018-05-25] MEDS: MAGNESIUM OXIDE 400 MG TABLET (FP) PO SCH (21:34)
[2018-05-25] MEDS: ATORVASTATIN CA 20 MG TABLET (FP) PO SCH (21:34)
[2018-05-25] MEDS: HEPARIN NA (PORCINE) 5,000 UNITS/ML 1ML VIAL IVPUSH PRN (22:25)
[2018-05-26 06:26] LABS: BASO % 0.7 % (0-2.0); EOS % 1.8 % (0-4.5); HEMATOCRIT 33.9 % (35.4-49); HEMOGLOBIN 11.1 GM/dL (11.7-16.9); LYMPH % 13.9 % (8-40); MCH 26.5 pg (25.7-33.7); MCHC 32.7 g/dl (32.0-35.9); MEAN CELL VOLUME 81.2 fl (80-96); MONO % 11.9 % (3.8-10.2); NEUT % 71.7 % (42.8-82.8); PLATELET COUNT 141 K/MM3 (134-434); RBC 4.18 M/mm3 (4.00-5.60); RDW 19.7 % (11.9-15.9); WHITE BLOOD COUNT 5.5 K/mm3 (4.0-10.0)
[2018-05-26] MEDS: FUROSEMIDE 100 MG/10 ML INJECTABLE VIAL IVPB SCH ×2 (06:57→15:27)
[2018-05-26 07:53] LABS: ALBUMIN 2.6 g/dl (3.4-5.0); ALK PHOS 138 U/L (45-117); ANION GAP 6 MMOL/L (8-16); BILIRUBIN,TOTAL 0.9 mg/dL (0.2-1); BLOOD UREA NITROGEN 22 mg/dL (7-18); CALCIUM 8.2 mg/dL (8.5-10.1); CHLORIDE 102 mmol/L (98-107); CO2 32 mmol/L (21-32); CREATININE 1.2 mg/dL (0.55-1.3); GLUCOSE,RANDOM 103 mg/dL (74-106); MAGNESIUM 1.7 mg/dL (1.8-2.4); POTASSIUM 3.9 mmol/L (3.5-5.1); SGOT/AST 27 U/L (15-37); SGPT/ALT 15 U/L (13-61); SODIUM 140 mmol/L (136-145)
[2018-05-26] MEDS: MAGNESIUM OXIDE 400 MG TABLET (FP) PO SCH ×2 (11:07→22:18)
[2018-05-26] MEDS: LISINOPRIL 10 MG TABLET (FP) PO SCH (11:07)
[2018-05-26] MEDS: SPIRONOLACTONE 25 MG TABLET (FP) PO SCH (11:07)
[2018-05-26] MEDS: CARVEDILOL 12.5 MG TABLET (FP) PO SCH ×2 (11:07→22:18)
[2018-05-26] MEDS: HEPARIN - 25,000 UNIT in SODIUM CHLORIDE 495 ML IV SCH ×3 (11:41→22:17)
[2018-05-26] MEDS: BACITRACIN 15 GM TUBE TOPICAL OINTMENT TP SCH (14:00)
--- NOTE | 2018-05-26 14:06 | PN ---
Progress Note, Physician - Current Medication List Current Medications: Active Medications Acetaminophen (Tylenol -) 650 mg PO Q6H PRN PRN Reason: PAIN Last Admin: 05/25/18 19:57 Dose: 650 mg Albuterol Sulfate (Ventolin Hfa Inhaler -) 2 puff IH Q4H PRN PRN Reason: SHORT OF BREATH/WHEEZING Atorvastatin Calcium (Lipitor -) 20 mg PO HS [facility] Last Admin: 05/25/18 21:34 Dose: 20 mg Bacitracin (Bacitracin -) 1 applic TP DAILY [facility] Last Admin: 05/25/18 14:51 Dose: 1 applic Budesonide/Formoterol Fumarate (Symbicort 160/4.5mcg -) 2 puff IH BID [facility] Last Admin: 05/25/18 21:37 Dose: 2 puff Carvedilol (Coreg -) 12.5 mg PO BID [facility] Last Admin: 05/26/18 11:07 Dose: 12.5 mg Furosemide (Lasix Injection -) 40 mg IVPB BIDLASIX [facility] Last Admin: 05/26/18 06:57 Dose: 40 mg Heparin Sodium (Porcine) (Heparin -) 1,000 unit IVPUSH PRN PRN PRN Reason: Heparin Last Admin: 05/25/18 22:25 Dose: 1,000 unit Heparin Sodium (Porcine) (Heparin -) 5,000 unit IVPUSH PRN PRN PRN Reason: Heparin Heparin Sodium (Porcine) 25, (000 unit/ Sodium Chloride) 500 mls @ 20 mls/hr IV TITR [facility]; Protocol Last Admin: 05/26/18 11:41 Dose: 1,100 unit/hr, 22 mls/hr Lisinopril (Prinivil) 20 mg PO DAILY [facility] Last Admin: 05/26/18 11:07 Dose: 20 mg Magnesium Oxide (Mag-Ox -) 400 mg PO BID [facility] Last Admin: 05/26/18 11:07 Dose: 400 mg Metoprolol Tartrate (Lopressor Injection -) 5 mg IVPUSH Q4H PRN PRN Reason: TACHYCARDIA Spironolactone (Aldactone -) 50 mg PO DAILY [facility] Last Admin: 05/26/18 11:07 Dose: 50 mg - Objective Vital Signs: Vital Signs Temperature 98 F 05/26/18 10:00 Pulse Rate 60 05/26/18 10:00 Respiratory Rate 20 05/26/18 10:00 Blood Pressure 129/77 05/26/18 10:00 O2 Sat by Pulse Oximetry (%) 96 05/25/18 20:25 Labs: CBC, BMP 05/26/18 05:30 05/26/18 05:30 INR, PTT INR 1.42 (0.83-1.09) H 05/19/18 15:35
--- NOTE | 2018-05-26 14:11 | PN ---
Physical Exam: SUBJECTIVE: Patient seen and examined at the bedside. in no acute distress. OBJECTIVE: 62 year old male admitted on 05/19/18 with progressively worsening SOB x 4 days associated with dry cough, poor PO intake, generalized fatigue and inability to ambulate due to dyspnea. Patient states that this has been progressively worsening since his discharge last month from [facility] where he was hospitalized for CHF exacerbation. States that he had a paracentesis at that time where 2.8L were removed. patient on a heparin drip now for anticipated paracentesis on Tuesday with IR. Vital Signs Period Temp Pulse Resp BP Sys/Rosado Pulse Ox Last 24 Hr 97.6 F-98.1 F 60-81 18-20 111-140/56-93 96 GENERAL: The patient is awake, alert, and fully oriented, in no acute distress. HEAD: Normal with no signs of trauma. EYES: PERRL, extraocular movements intact, sclera anicteric, conjunctiva clear. No ptosis. ENT: Ears normal, nares patent, oropharynx clear without exudates, moist mucous membranes. NECK: Trachea midline, full range of motion, supple. LUNGS: diminished bilateraly ABDOMEN: moderately distended abdomen, +bowel sounds rebound, no hepatosplenomegaly, no masses. EXTREMITIES: 2+ pulses, warm, well-perfused, no edema. NEUROLOGICAL: Cranial nerves II through XII grossly intact. Normal speech, gait not observed. PSYCH: Normal mood, normal affect. SKIN: lower ext with disoloration and leg wounds. legs cleaned and bacitracin added. legs wrapped in verónica. Laboratory Results - last 24 hr 05/25/18 05/25/18 05/25/18 14:45 21:30 21:33 WBC Corrected WBC (auto) RBC Hgb Hct MCV MCH MCHC RDW Plt Count MPV Absolute Neuts (auto) Neutrophils % Lymphocytes % Monocytes % Eosinophils % Basophils % PTT (Actin FS) 40.8 H 41.1 H Sodium Potassium Chloride Carbon Dioxide Anion Gap BUN Creatinine Creat Clearance w eGFR POC Glucometer 111 Random Glucose Calcium Magnesium Total Bilirubin AST ALT Alkaline Phosphatase Total Protein Albumin 05/26/18 05/26/18 05/26/18 05:30 05:30 05:30 WBC 5.5 Corrected WBC (auto) 0.00 RBC 4.18 Hgb 11.1 L Hct 33.9 L MCV 81.2 MCH 26.5 MCHC 32.7 RDW 19.7 H Plt Count 141 MPV 11.0 Absolute Neuts (auto) 3.9 Neutrophils % 71.7 Lymphocytes % 13.9 Monocytes % 11.9 H Eosinophils % 1.8 Basophils % 0.7 PTT (Actin FS) 53.8 H Sodium 140 Potassium 3.9 Chloride 102 Carbon Dioxide 32 Anion Gap 6 L BUN 22 H Creatinine 1.2 Creat Clearance w eGFR 61.35 POC Glucometer Random Glucose 103 Calcium 8.2 L Magnesium 1.7 L Total Bilirubin 0.9 AST 27 ALT 15 Alkaline Phosphatase 138 H Total Protein 6.0 L Albumin 2.6 L 05/26/18 06:37 WBC Corrected WBC (auto) RBC Hgb Hct MCV MCH MCHC RDW Plt Count MPV Absolute Neuts (auto) Neutrophils % Lymphocytes % Monocytes % Eosinophils % Basophils % PTT (Actin FS) Sodium Potassium Chloride Carbon Dioxide Anion Gap BUN Creatinine Creat Clearance w eGFR POC Glucometer 96 Random Glucose Calcium Magnesium Total Bilirubin AST ALT Alkaline Phosphatase Total Protein Albumin Active Medications Generic Name Dose Route Start Last Admin Trade Name Freq PRN Reason Stop Dose Admin Acetaminophen 650 mg 05/25/18 19:36 05/25/18 19:57 Tylenol - PO 650 mg Q6H PRN Administration PAIN Albuterol Sulfate 2 puff 05/22/18 11:48 Ventolin Hfa Inhaler - IH Q4H PRN SHORT OF BREATH/WHEEZING Atorvastatin Calcium 20 mg 05/21/18 22:00 05/25/18 21:34 Lipitor - PO 20 mg HS [facility] Administration Bacitracin 1 applic 05/23/18 15:45 05/25/18 14:51 Bacitracin - TP 1 applic DAILY [facility] Administration Budesonide/Formoterol Fumarate 2 puff 05/19/18 22:00 05/25/18 21:37 Symbicort 160/4.5mcg - IH 2 puff BID [facility] Administration Carvedilol 12.5 mg 05/23/18 10:15 05/26/18 11:07 Coreg - PO 12.5 mg BID [facility] Administration Furosemide 40 mg 05/24/18 14:00 05/26/18 06:57 Lasix Injection - IVPB 40 mg BIDLASIX [facility] Administration Heparin Sodium (Porcine) 1,000 unit 05/25/18 14:00 05/25/18 22:25 Heparin - IVPUSH 1,000 unit PRN PRN Administration Heparin Heparin Sodium (Porcine) 5,000 unit 05/25/18 14:00 Heparin - IVPUSH PRN PRN Heparin Heparin Sodium (Porcine) 25, 500 mls @ 20 mls/hr 05/25/18 14:00 05/26/18 11: 41 000 unit/ Sodium Chloride IV 1,100 unit/hr TITR [facility] 22 mls/hr Administration Protocol 1,000 UNIT/HR Lisinopril 20 mg 05/24/18 13:27 05/26/18 11:07 Prinivil PO 20 mg DAILY [facility] Administration Magnesium Oxide 400 mg 05/25/18 22:00 05/26/18 11:07 Mag-Ox - PO 400 mg BID [facility] Administration Metoprolol Tartrate 5 mg 05/19/18 18:06 Lopressor Injection - IVPUSH Q4H PRN TACHYCARDIA Spironolactone 50 mg 05/25/18 09:12 05/26/18 11:07 Aldactone - PO 50 mg DAILY [facility] Administration ASSESSMENT/PLAN: Patient is a 62 year old male admitted on 05/19/18 with progressively worsening SOB x 4 days associated with dry cough, poor PO intake, generalized fatigue and inability to ambulate due to dyspnea. Patient states that this has been progressively worsening since his discharge last month from [facility] where he was hospitalized for CHF exacerbation. States that he had a paracentesis at that time where 2.8L were removed. Patient denies CP, fever, chills, N/V/C/D or orthopnea, denies abdominal pain. imaging: echo: left atrium moderately dilated, mild mitral valve thickening,mild aortic sclerosis. mod tricusp regur. ef 15-20% Card: Congestive Heart failure. Systolic heart failure echo shows 15%-20%, bnp [id number], clinically with volume overload, distended abdomen and lower ext weeping edema. On beta blockers, lasix 40mg IV bid and Aldactone 50 qd monitor intake and output, daily weights decreased from 129k> 124kg. ascites seen on abdominal u/s. will ask IR to evaluate, however, patient is on xarelto which is now on hold for anticipation of paracentesis on Tuesday. now on heparin drip. Possible [employer]ER [employer] TE[employer] device per cardiology. Hypertension. controlled coreq 12.5 mg bid. cardiology following Atrial fibrillation. hold xarelto, heparin gtt rate controlled Endocrine Diabetes. hmga1c 6.4. monitor serum glucose with am. labs. if elevated start SS. General: Morbid obesity Dietary follow up COPD tolerating room air not in exacerbation fen monitor intake and output low salt diet Visit type - Emergency Visit Emergency Visit: Yes ED Registration Date: 05/19/18 Care time: The patient presented to the Emergency Department on the above date and was hospitalized for further evaluation of their emergent condition. - New Patient This patient is new to me today: No - Critical Care Critical Care patient: No - Discharge Referral Referred to [facility] No
[2018-05-26] MEDS: BUDESONIDE/FORMETEROL FUMARATE 160/4.5 mcg INHALER IH SCH ×2 (15:28→22:18)
--- NOTE | 2018-05-26 15:43 | PN ---
Progress Note, Physician History of Present Illness: TOMLINSON improving with diuresis, denies orthopnea, distended abdomen planned for paracentesis Tuesday. - Current Medication List Current Medications: Active Medications Acetaminophen (Tylenol -) 650 mg PO Q6H PRN PRN Reason: PAIN Last Admin: 05/25/18 19:57 Dose: 650 mg Albuterol Sulfate (Ventolin Hfa Inhaler -) 2 puff IH Q4H PRN PRN Reason: SHORT OF BREATH/WHEEZING Atorvastatin Calcium (Lipitor -) 20 mg PO HS [facility] Last Admin: 05/25/18 21:34 Dose: 20 mg Bacitracin (Bacitracin -) 1 applic TP DAILY [facility] Last Admin: 05/26/18 14:00 Dose: 1 applic Budesonide/Formoterol Fumarate (Symbicort 160/4.5mcg -) 2 puff IH BID [facility] Last Admin: 05/26/18 15:28 Dose: 2 puff Carvedilol (Coreg -) 12.5 mg PO BID [facility] Last Admin: 05/26/18 11:07 Dose: 12.5 mg Furosemide (Lasix Injection -) 40 mg IVPB BIDLASIX [facility] Last Admin: 05/26/18 15:27 Dose: 40 mg Heparin Sodium (Porcine) (Heparin -) 1,000 unit IVPUSH PRN PRN PRN Reason: Heparin Last Admin: 05/25/18 22:25 Dose: 1,000 unit Heparin Sodium (Porcine) (Heparin -) 5,000 unit IVPUSH PRN PRN PRN Reason: Heparin Heparin Sodium (Porcine) 25, (000 unit/ Sodium Chloride) 500 mls @ 20 mls/hr IV TITR [facility]; Protocol Last Admin: 05/26/18 15:27 Dose: Not Given Lisinopril (Prinivil) 20 mg PO DAILY [facility] Last Admin: 05/26/18 11:07 Dose: 20 mg Magnesium Oxide (Mag-Ox -) 400 mg PO BID [facility] Last Admin: 05/26/18 11:07 Dose: 400 mg Metoprolol Tartrate (Lopressor Injection -) 5 mg IVPUSH Q4H PRN PRN Reason: TACHYCARDIA Spironolactone (Aldactone -) 50 mg PO DAILY [facility] Last Admin: 05/26/18 11:07 Dose: 50 mg - Objective Vital Signs: Vital Signs Temperature 98.2 F 05/26/18 14:10 Pulse Rate 69 05/26/18 14:10 Respiratory Rate 20 05/26/18 14:10 Blood Pressure 143/78 05/26/18 14:10 O2 Sat by Pulse Oximetry (%) 96 05/26/18 09:00 Constitutional: Yes: No Distress, Calm Neck: Yes: Supple Cardiovascular: Yes: Pulse Irregular Respiratory: Yes: Regular, Diminished, On Nasal O2 Gastrointestinal: Yes: Normal Bowel Sounds, Abdomen, Obese, Distention Edema: Yes Edema: LLE: 1+, RLE: 1+ Labs: CBC, BMP 05/26/18 05:30 05/26/18 05:30 INR, PTT INR 1.42 (0.83-1.09) H 05/19/18 15:35 Problem List - Problems (1) Afib Code(s): I48.91 - UNSPECIFIED ATRIAL FIBRILLATION Qualifiers: Atrial fibrillation type: persistent Qualified Code(s): I48.1 - Persistent atrial fibrillation (2) Anasarca Code(s): R60.1 - GENERALIZED EDEMA (3) Ascites Code(s): R18.8 - OTHER ASCITES Qualifiers: Ascites type: other type Qualified Code(s): R18.8 - Other ascites (4) HTN (hypertension) Code(s): I10 - ESSENTIAL (PRIMARY) HYPERTENSION Qualifiers: Hypertension type: essential hypertension Qualified Code(s): I10 - Essential (primary) hypertension (5) Heart failure, systolic, with acute decompensation Code(s): I50.23 - ACUTE ON CHRONIC SYSTOLIC (CONGESTIVE) HEART FAILURE (6) Hypercholesteremia Code(s): E78.00 - PURE HYPERCHOLESTEROLEMIA, UNSPECIFIED (7) Morbid obesity with BMI of 40.0-44.9, adult Code(s): E66.01 - MORBID (SEVERE) OBESITY DUE TO EXCESS CALORIES; Z68.41 - BODY MASS INDEX (BMI) 40.0-44.9, ADULT (8) T2DM (type 2 diabetes mellitus) Code(s): E11.9 - TYPE 2 DIABETES MELLITUS WITHOUT COMPLICATIONS Qualifiers: Diabetes mellitus middle or intermediate school principal insulin use: without middle or intermediate school principal use Diabetes mellitus complication status: with unspecified complications Qualified Code(s) : E11.8 - Type 2 diabetes mellitus with unspecified complications Assessment/Plan 05/22/2018 Echo: Mod LAE, mod-severe RV fxn, mod TR, severe decreased LV fxn LVEF 15-20%, mod cLVH 09/30/2017 R&LHc at [facility]: Minor nonobstructive CAD, severe LV dysfunction, mod MR , severely elevated LVEDP and pulmonary pressures, low cardiac output, LVEF 20% 1. Acute hypoxic respiratory failure 2. Acute on chronic diastolic and systolic LV failure and pleural effusions resolving 3. HTN cardiomyopathy 4. Hypercholesterolemia 5. AF with RVR on DOAC, wide complex suggests underlying nonspecific conduction delay vs. LBBB 6. Ascites 7. DM 8. Exogenous obesity PLAN: 1. IV diuresis with monitor diuretic response, renal function and electrolytes, replete Mg 2. Continue Aldactone 50 qd 3. Continue Carvediol 12.5 mg BID, Lipitor 20 qd and Prinivil 20 qd with uptitration as tolerated. Lopressor IV for added rate control 4. Holding Xarelto 20 qd pending therapeutic paracentesis Tuesday, on heparin gtt in interim 5. Further management on ascites for therapeutic and diagnostic evaluation 6. Bronchodilator as needed, wrap legs 7. Echocardiography and cath was reviewed. 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
[2018-05-26] MEDS ORDERED: MAGNESIUM SULF 50% (8.12 MEQ/2 ML-1 GM VIAL) IVPB ONE (17:37)
[2018-05-26] MEDS ORDERED: PT OWN MED DRAWER 7, Y5N ONE (22:16)
[2018-05-26] MEDS: ACETAMINOPHEN 325 MG TABLET (FP) PO PRN (22:18)
[2018-05-26] MEDS: ATORVASTATIN CA 20 MG TABLET (FP) PO SCH (22:18)
[2018-05-27] MEDS: FUROSEMIDE 100 MG/10 ML INJECTABLE VIAL IVPB SCH ×2 (06:42→13:25)
[2018-05-27] MEDS: ACETAMINOPHEN 325 MG TABLET (FP) PO PRN ×2 (06:42→13:31)
--- NOTE | 2018-05-27 06:45 | PN ---
Progress Note (short form) - Note Progress Note: Chief Complaint: Events noted, notes reviewed, complaining of persistent dyspnea but improved, abdominal distention is persistent for paracentesis, denies any chest pain History of Present Illness: Seen and examined on telemetry. Events noted, notes reviewed, complaining of persistent dyspnea but improved, abdominal distention is persistent for paracentesis, denies any chest pain 05/22/2018 Echocardiography: Mod LAE, moderate-severe RV systolic dysfunction, moderate cLVH, severe decrease in LV systolic function LVEF 15-20%, moderate TR 09/30/2017 R&LHc at [facility]: Minor non-obstructive CAD, severe LV dysfunction, mod MR, severely elevated LVEDP and pulmonary pressures, low cardiac output, LVEF 20 % Current Medications: Current Medications Acetaminophen (Tylenol -) 650 mg PO Q6H PRN PRN Reason: PAIN Last Admin: 05/27/18 06:42 Dose: 650 mg Albuterol Sulfate (Ventolin Hfa Inhaler -) 2 puff IH Q4H PRN PRN Reason: SHORT OF BREATH/WHEEZING Atorvastatin Calcium (Lipitor -) 20 mg PO HS [facility] Last Admin: 05/26/18 22:18 Dose: 20 mg Bacitracin (Bacitracin -) 1 applic TP DAILY [facility] Last Admin: 05/26/18 14:00 Dose: 1 applic Budesonide/Formoterol Fumarate (Symbicort 160/4.5mcg -) 2 puff IH BID [facility] Last Admin: 05/26/18 22:18 Dose: 2 puff Carvedilol (Coreg -) 12.5 mg PO BID [facility] Last Admin: 05/26/18 22:18 Dose: 12.5 mg Furosemide (Lasix Injection -) 40 mg IVPB BIDLASIX [facility] Last Admin: 05/27/18 06:42 Dose: 40 mg Heparin Sodium (Porcine) (Heparin -) 1,000 unit IVPUSH PRN PRN PRN Reason: Heparin Last Admin: 05/25/18 22:25 Dose: 1,000 unit Heparin Sodium (Porcine) (Heparin -) 5,000 unit IVPUSH PRN PRN PRN Reason: Heparin Heparin Sodium (Porcine) 25, (000 unit/ Sodium Chloride) 500 mls @ 20 mls/hr IV TITR [facility]; Protocol Last Admin: 05/26/18 22:17 Dose: 1,100 unit/hr, 22 mls/hr Lisinopril (Prinivil) 20 mg PO DAILY [facility] Last Admin: 05/26/18 11:07 Dose: 20 mg Magnesium Oxide (Mag-Ox -) 400 mg PO BID [facility] Last Admin: 05/26/18 22:18 Dose: 400 mg Metoprolol Tartrate (Lopressor Injection -) 5 mg IVPUSH Q4H PRN PRN Reason: TACHYCARDIA Spironolactone (Aldactone -) 50 mg PO DAILY [facility] Last Admin: 05/26/18 11:07 Dose: 50 mg Review of Systems Cardiovascular: As noted above Respiratory: denies: Cough or Sputum Production Gastrointestinal: denies: Nausea, Vomiting, Diarrhea, Constipation or Abdominal Discomfort Musculoskeletal: No Symptoms Reported Endocrine: No Symptoms Reported - Objective Vital Signs: Last Vital Signs Temp Pulse Resp BP Pulse Ox 97.8 F 78 20 121/101 H 95 05/27/18 06:00 05/27/18 06:00 05/27/18 06:00 05/27/18 06:00 05/26/18 21:00 Intake & Output 05/24/18 05/25/18 05/26/18 05/27/18 23:59 23:59 23:59 23:59 Intake Total 770 80 154 242 Output Total 1400 1000 2100 Balance -746 -898 -2188 242 Weight 274 lb 8 oz 276 lb 12.8 oz Neck: Supple Negative JVD No bruit Respiratory: Diminished breath sounds at the bases Cardiovascular: S1, S2 Irregularly Irregular Gastrointestinal: Soft Benign Distended Normal Bowel Sounds Ext: Edema Labs: CBC, BMP 05/26/18 05:30 05/26/18 05:30 Hepatic Panel Total Bilirubin 0.9 mg/dL (0.2-1) 05/26/18 05:30 AST 27 U/L (15-37) 05/26/18 05:30 ALT 15 U/L (13-61) 05/26/18 05:30 Alkaline Phosphatase 138 U/L (45-117) H 05/26/18 05:30 Albumin 2.6 g/dl (3.4-5.0) L 05/26/18 05:30 INR, PTT INR 1.42 (0.83-1.09) H 05/19/18 15:35 Assessment/Plan ASSESSMENT: 1. Acute hypoxic respiratory failure related to, 2. Acute on chronic class II NYHA classification LV failure related to systolic/ diastolic LV dysfunction, resolving 3. CAD non-obstructive disease angina pectoris 4. Atrial fibrillation with periods of RVR on DOAC's- held for paracentesis/ Heparin 5. HTN/hypertensive cardiomyopathy 6. DM 7. Hypercholesterolemia 8. Pleural effusion/Ascites, related to above 9. Exogenous obesity PLAN: 1. IV Lasix and Aldactone- dose titration as needed with close monitoring of renal function 2. Continue Coreg dose titration as needed 3. Continue Lisinopril dose titration as needed with close monitoring of renal function, eventually outpatient initiation of Entresto/as per guidelines 4. Continue Lipitor 5. Continue to hold Xarelto pending therapeutic paracentesis, Heparin drip in interim 6. Ideally would recommend TANK BOTTOM ASSEMBLER-D implant provided patient demonstrate compliance with medical therapy administration and F/U Gloria Burt MD
[2018-05-27] MEDS: SPIRONOLACTONE 25 MG TABLET (FP) PO SCH ×3 (09:07→21:36)
[2018-05-27] MEDS: MAGNESIUM OXIDE 400 MG TABLET (FP) PO SCH ×2 (09:07→21:36)
[2018-05-27] MEDS: LISINOPRIL 10 MG TABLET (FP) PO SCH (09:07)
[2018-05-27] MEDS: CARVEDILOL 12.5 MG TABLET (FP) PO SCH ×2 (09:07→21:35)
[2018-05-27] MEDS: BUDESONIDE/FORMETEROL FUMARATE 160/4.5 mcg INHALER IH SCH ×2 (09:08→21:39)
[2018-05-27] MEDS: BACITRACIN 15 GM TUBE TOPICAL OINTMENT TP SCH (09:08)
[2018-05-27 10:40] LABS: EOS % 1.9 % (0-4.5); HEMOGLOBIN 11.2 GM/dL (11.7-16.9); LYMPH % 12.1 % (8-40); MCH 26.4 pg (25.7-33.7); MCHC 32.1 g/dl (32.0-35.9); MEAN CELL VOLUME 82.3 fl (80-96); MEAN PLT VOLUME 11.5 fl (7.5-11.1); PLATELET COUNT 132 K/MM3 (134-434); RBC 4.26 M/mm3 (4.00-5.60); RDW 19.2 % (11.9-15.9); WHITE BLOOD COUNT 5.9 K/mm3 (4.0-10.0)
[2018-05-27] MEDS: HEPARIN NA (PORCINE) 5,000 UNITS/ML 1ML VIAL IVPUSH PRN ×2 (11:24→18:21)
[2018-05-27 11:35] LABS: ALBUMIN 2.7 g/dl (3.4-5.0); ALK PHOS 152 U/L (45-117); ANION GAP 6 MMOL/L (8-16); BILIRUBIN,TOTAL 0.8 mg/dL (0.2-1); BLOOD UREA NITROGEN 26 mg/dL (7-18); CALCIUM 8.6 mg/dL (8.5-10.1); CHLORIDE 99 mmol/L (98-107); CO2 33 mmol/L (21-32); CREATININE 1.3 mg/dL (0.55-1.3); GLUCOSE,RANDOM 132 mg/dL (74-106); MAGNESIUM 2.2 mg/dL (1.8-2.4); SGOT/AST 38 U/L (15-37); SGPT/ALT 21 U/L (13-61); SODIUM 138 mmol/L (136-145); TOT PROT 6.5 g/dl (6.4-8.2)
--- NOTE | 2018-05-27 13:34 | PN ---
Progress Note, Physician Chief Complaint: shortness of breath, volume overload History of Present Illness: Pt feels his breathing is slightly better though still not back to baseline. Remains on heparin gtt as bridge for AFib given pending paracentesis on 05/29. At last check PTT at goal (> 1.5 nrml range) Per d/w cardiology may try to uptitrate aldactone Pt wtih no fever, n/v/d, is tolerating PO intake & voiding without discomfort 24 hr inputs: 242ml/ Outputs: 1.4L, net neg 1.2L - Current Medication List Current Medications: Active Medications Acetaminophen (Tylenol -) 650 mg PO Q6H PRN PRN Reason: PAIN Last Admin: 05/27/18 06:42 Dose: 650 mg Albuterol Sulfate (Ventolin Hfa Inhaler -) 2 puff IH Q4H PRN PRN Reason: SHORT OF BREATH/WHEEZING Atorvastatin Calcium (Lipitor -) 20 mg PO HS [facility] Last Admin: 05/26/18 22:18 Dose: 20 mg Bacitracin (Bacitracin -) 1 applic TP DAILY [facility] Last Admin: 05/27/18 09:08 Dose: 1 applic Budesonide/Formoterol Fumarate (Symbicort 160/4.5mcg -) 2 puff IH BID [facility] Last Admin: 05/27/18 09:08 Dose: 2 puff Carvedilol (Coreg -) 12.5 mg PO BID [facility] Last Admin: 05/27/18 09:07 Dose: 12.5 mg Furosemide (Lasix Injection -) 40 mg IVPB BIDLASIX [facility] Last Admin: 05/27/18 13:25 Dose: 40 mg Heparin Sodium (Porcine) (Heparin -) 1,000 unit IVPUSH PRN PRN PRN Reason: Heparin Last Admin: 05/27/18 11:24 Dose: 1,000 unit Heparin Sodium (Porcine) (Heparin -) 5,000 unit IVPUSH PRN PRN PRN Reason: Heparin Heparin Sodium (Porcine) 25, (000 unit/ Sodium Chloride) 500 mls @ 20 mls/hr IV TITR [facility]; Protocol Last Titration: 05/27/18 11:24 Dose: 1,200 unit/hr, 24 mls/hr Lisinopril (Prinivil) 20 mg PO DAILY [facility] Last Admin: 05/27/18 09:07 Dose: 20 mg Magnesium Oxide (Mag-Ox -) 400 mg PO BID [facility] Last Admin: 05/27/18 09:07 Dose: 400 mg Metoprolol Tartrate (Lopressor Injection -) 5 mg IVPUSH Q4H PRN PRN Reason: TACHYCARDIA Spironolactone (Aldactone -) 50 mg PO BID [facility] Last Admin: 05/27/18 11:09 Dose: Not Given - Objective Vital Signs: Vital Signs Temperature 98.0 F 05/27/18 09:56 Pulse Rate 74 05/27/18 09:56 Respiratory Rate 20 05/27/18 09:56 Blood Pressure 132/76 05/27/18 09:56 O2 Sat by Pulse Oximetry (%) 94 L 05/27/18 09:00 Constitutional: Yes: Well Nourished, No Distress, Calm Eyes: Yes: Conjunctiva Clear, EOM Intact HENT: Yes: Atraumatic, Normocephalic Neck: Yes: Supple, Trachea Midline Cardiovascular: Yes: WNL, Regular Rate and Rhythm (s1 &s2 nrml intensity, no murmurs audible) Respiratory: Yes: Regular (diminsihed bibasilar breath sounds, slight crackles, no wheezing) Gastrointestinal: Yes: Abdomen, Obese, Ascites (firm but not tense, non tender, + tympanitic) Extremities: Yes: Cool (cool to touch, + palpable distal pulses in b/l upper & lower extremities, 2+ pitting b/l LE edema above level of knee) Labs: CBC, BMP 05/27/18 09:42 05/27/18 09:42 INR, PTT INR 1.42 (0.83-1.09) H 05/19/18 15:35 Problem List - Problems (1) Afib Assessment/Plan: pt presently rate controlled c/w coreg 12.5mg BID have held DOAC in prep for upcoming paracentesis, on heparin gtt as bridge pendign IR procedure, goal PTT 1.5 upper limit of nrml Code(s): I48.91 - UNSPECIFIED ATRIAL FIBRILLATION Qualifiers: Atrial fibrillation type: persistent Qualified Code(s): I48.1 - Persistent atrial fibrillation (2) Anasarca Assessment/Plan: c/w diuersis as tolerated goal net neg 1+ L/day per discussion w/ cards will increase aldactone dose to 50mg BID & keep lasix stable monitor uop w/ bedside urinal, trend I/O's and daily weights pt pending abd paracentesis for volume removal w/ IR on 05/29/18 Code(s): R60.1 - GENERALIZED EDEMA (3) COPD (chronic obstructive pulmonary disease) Assessment/Plan: monitor O2 sats c/w BID budesonide inhaler & PRN duonebs goal Spo2 88- 92% Code(s): J44.9 - CHRONIC OBSTRUCTIVE PULMONARY DISEASE, UNSPECIFIED (4) HTN (hypertension) Assessment/Plan: target SBP < 120mmhg or MAP between 65-70 c/w carvedilol, aldactone, lasix,+ lisinopril may be candidate for entresto but likely as outpt & hold until 24 hrs after last ELIJAH-I dose keep on low sodium diet Code(s): I10 - ESSENTIAL (PRIMARY) HYPERTENSION Qualifiers: Hypertension type: essential hypertension Qualified Code(s): I10 - Essential (primary) hypertension (5) Heart failure, systolic, with acute decompensation Assessment/Plan: - c/w present regimen of carvedilol, lisinopril, lasix & aldactone - trend daily wieghts, keep on low sodium diet, restrict fluid intake to < 1L/ day, favor net neg fluid balance of neg 1L/24hrs as tolerated Code(s): I50.23 - ACUTE ON CHRONIC SYSTOLIC (CONGESTIVE) HEART FAILURE (6) Morbid obesity with BMI of 40.0-44.9, adult Assessment/Plan: calorie restricted diet recommended Code(s): E66.01 - MORBID (SEVERE) OBESITY DUE TO EXCESS CALORIES; Z68.41 - BODY MASS INDEX (BMI) 40.0-44.9, ADULT (7) Respiratory distress Assessment/Plan: breathing improved, c/w monitoring of vitals, spo2, use of diuretics for volume optimization, duonebs as needed Code(s): R06.03 - ACUTE RESPIRATORY DISTRESS (8) T2DM (type 2 diabetes mellitus) Assessment/Plan: keep on diabetic diet most recent A1c 6.4% maintain fasting glucose less tahn 150-180 while admitted may require insulin coverage fro glucose > 250 Code(s): E11.9 - TYPE 2 DIABETES MELLITUS WITHOUT COMPLICATIONS Qualifiers: Diabetes mellitus [facility] insulin use: without [facility] use Diabetes mellitus complication status: with unspecified complications Qualified Code(s) : E11.8 - Type 2 diabetes mellitus with unspecified complications
[2018-05-27] MEDS: HEPARIN - 25,000 UNIT in SODIUM CHLORIDE 495 ML IV SCH (14:20)
[2018-05-27] MEDS: ATORVASTATIN CA 20 MG TABLET (FP) PO SCH (21:35)
[2018-05-27] MEDS ORDERED: PT OWN MED DRAWER 7, Y5N ONE (21:40)
[2018-05-28] MEDS: ACETAMINOPHEN 325 MG TABLET (FP) PO PRN (02:45)
[2018-05-28] MEDS: FUROSEMIDE 100 MG/10 ML INJECTABLE VIAL IVPB SCH ×2 (06:10→13:05)
--- NOTE | 2018-05-28 07:33 | PN ---
Progress Note (short form) - Note Progress Note: Chief Complaint: Events noted, notes reviewed, complaining of persistent dyspnea but continues to improve, abdominal distention is persistent for paracentesis this coming week, denies any chest pain History of Present Illness: Seen and examined on telemetry. Events noted, notes reviewed, complaining of persistent dyspnea but continues to improve, abdominal distention is persistent for paracentesis this coming week, denies any chest pain 05/22/2018 Echocardiography: Mod LAE, moderate-severe RV systolic dysfunction, moderate cLVH, severe decrease in LV systolic function LVEF 15-20%, moderate TR 09/30/2017 R&LHc at [facility]: Minor non-obstructive CAD, severe LV dysfunction, mod MR, severely elevated LVEDP and pulmonary pressures, low cardiac output, LVEF 20 % Current Medications: Current Medications Acetaminophen (Tylenol -) 650 mg PO Q6H PRN PRN Reason: PAIN Last Admin: 05/28/18 02:45 Dose: 650 mg Albuterol Sulfate (Ventolin Hfa Inhaler -) 2 puff IH Q4H PRN PRN Reason: SHORT OF BREATH/WHEEZING Atorvastatin Calcium (Lipitor -) 20 mg PO HS SOWMYA Last Admin: 05/27/18 21:35 Dose: 20 mg Bacitracin (Bacitracin -) 1 applic TP DAILY S[facility]MYA Last Admin: 05/27/18 09:08 Dose: 1 applic Budesonide/Formoterol Fumarate (Symbicort 160/4.5mcg -) 2 puff IH BID SOWMYA Last Admin: 05/27/18 21:39 Dose: 2 puff Carvedilol (Coreg -) 12.5 mg PO BID S[facility]MYA Last Admin: 05/27/18 21:35 Dose: 12.5 mg Furosemide (Lasix Injection -) 40 mg IVPB BIDLASIX SOWMYA Last Admin: 05/28/18 06:10 Dose: 40 mg Heparin Sodium (Porcine) (Heparin -) 1,000 unit IVPUSH PRN PRN PRN Reason: Heparin Last Admin: 05/27/18 18:21 Dose: 1,000 unit Heparin Sodium (Porcine) (Heparin -) 5,000 unit IVPUSH PRN PRN PRN Reason: Heparin Heparin Sodium (Porcine) 25, (000 unit/ Sodium Chloride) 500 mls @ 20 mls/hr IV TITR SOWMYA; Protocol Last Titration: 05/28/18 01:00 Dose: 1,250 unit/hr, 25 mls/hr Lisinopril (Prinivil) 20 mg PO DAILY [facility] Last Admin: 05/27/18 09:07 Dose: 20 mg Magnesium Oxide (Mag-Ox -) 400 mg PO BID [facility] Last Admin: 05/27/18 21:36 Dose: 400 mg Metoprolol Tartrate (Lopressor Injection -) 5 mg IVPUSH Q4H PRN PRN Reason: TACHYCARDIA Spironolactone (Aldactone -) 50 mg PO BID [facility] Last Admin: 05/27/18 21:36 Dose: 50 mg Review of Systems Cardiovascular: As noted above Respiratory: denies: Cough or Sputum Production Gastrointestinal: denies: Nausea, Vomiting, Diarrhea, Constipation or Abdominal Discomfort Musculoskeletal: No Symptoms Reported Endocrine: No Symptoms Reported - Objective Vital Signs: Last Vital Signs Temp Pulse Resp BP Pulse Ox 97.8 F 88 20 140/89 94 L 05/28/18 06:00 05/28/18 06:00 05/28/18 06:00 05/28/18 06:00 05/27/18 20:50 Intake & Output 05/25/18 05/26/18 05/27/18 05/28/18 23:59 23:59 23:59 23:59 Intake Total 80 154 1322 450 Output Total 1000 2100 3200 700 Balance -038 -8487 -9671 -250 Weight 276 lb 12.8 oz 281 lb 3.2 oz 282 lb 6 oz Neck: Supple Negative JVD No bruit Respiratory: Diminished breath sounds at the bases Cardiovascular: S1, S2 Irregularly Irregular Gastrointestinal: Soft Benign Distended Normal Bowel Sounds Ext: Edema Labs: CBC, BMP 05/27/18 09:42 05/27/18 09:42 Hepatic Panel Total Bilirubin 0.8 mg/dL (0.2-1) 05/27/18 09:42 AST 38 U/L (15-37) H 05/27/18 09:42 ALT 21 U/L (13-61) 05/27/18 09:42 Alkaline Phosphatase 152 U/L (45-117) H 05/27/18 09:42 Albumin 2.7 g/dl (3.4-5.0) L 05/27/18 09:42 INR, PTT INR 1.42 (0.83-1.09) H 05/19/18 15:35 Assessment/Plan ASSESSMENT: 1. Acute hypoxic respiratory failure related to, 2. Acute on chronic class II NYHA classification LV failure related to systolic/ diastolic LV dysfunction, resolving 3. CAD non-obstructive disease angina pectoris 4. Atrial fibrillation with periods of RVR on DOAC's- held for paracentesis/on Heparin 5. HTN/hypertensive cardiomyopathy 6. DM 7. Hypercholesterolemia 8. Pleural effusion/Ascites, related to above 9. Exogenous obesity PLAN: 1. Continue IV Lasix and Aldactone- with close monitoring of renal function 2. Continue Coreg dose titration as needed 3. Continue Lisinopril dose titration as needed with close monitoring of renal function, and as outlined eventually outpatient initiation of Entresto/as per guidelines 4. Continue Lipitor 5. Continue to hold Xarelto pending therapeutic paracentesis, Heparin drip in interim 6. As outlined ideally would recommend ROOF TILER-D implant provided patient demonstrate compliance with medical therapy administration and F/U Gloria Burt MD
[2018-05-28] MEDS: SPIRONOLACTONE 25 MG TABLET (FP) PO SCH ×2 (09:21→23:07)
[2018-05-28] MEDS: CARVEDILOL 12.5 MG TABLET (FP) PO SCH ×2 (09:21→23:08)
[2018-05-28] MEDS: GABAPENTIN 100 MG CAPSULE (FP) PO SCH ×2 (09:21→23:07)
[2018-05-28] MEDS: MAGNESIUM OXIDE 400 MG TABLET (FP) PO SCH ×2 (09:21→23:07)
[2018-05-28] MEDS: LISINOPRIL 10 MG TABLET (FP) PO SCH (09:22)
[2018-05-28] MEDS: BACITRACIN 15 GM TUBE TOPICAL OINTMENT TP SCH (09:22)
[2018-05-28] MEDS: BUDESONIDE/FORMETEROL FUMARATE 160/4.5 mcg INHALER IH SCH ×2 (09:22→23:08)
[2018-05-28 10:01] LABS: BASO % 0.7 % (0-2.0); HEMATOCRIT 33.3 % (35.4-49); HEMOGLOBIN 10.8 GM/dL (11.7-16.9); LYMPH % 11.5 % (8-40); MCH 26.8 pg (25.7-33.7); MCHC 32.4 g/dl (32.0-35.9); MEAN CELL VOLUME 82.7 fl (80-96); MEAN PLT VOLUME 11.7 fl (7.5-11.1); MONO % 11.8 % (3.8-10.2); PLATELET COUNT 142 K/MM3 (134-434); RBC 4.02 M/mm3 (4.00-5.60); RDW 19.2 % (11.9-15.9); WHITE BLOOD COUNT 6.2 K/mm3 (4.0-10.0)
[2018-05-28 10:15] LABS: ALBUMIN 2.9 g/dl (3.4-5.0); ALK PHOS 151 U/L (45-117); ANION GAP 5 MMOL/L (8-16); BILIRUBIN,TOTAL 0.7 mg/dL (0.2-1); BLOOD UREA NITROGEN 27 mg/dL (7-18); CALCIUM 8.4 mg/dL (8.5-10.1); CHLORIDE 101 mmol/L (98-107); CO2 33 mmol/L (21-32); CREATININE 1.3 mg/dL (0.55-1.3); GLUCOSE,RANDOM 180 mg/dL (74-106); MAGNESIUM 2.2 mg/dL (1.8-2.4); POTASSIUM 4.1 mmol/L (3.5-5.1); SGOT/AST 32 U/L (15-37); SGPT/ALT 20 U/L (13-61); SODIUM 138 mmol/L (136-145); TOT PROT 6.5 g/dl (6.4-8.2)
--- NOTE | 2018-05-28 12:35 | PN ---
Progress Note, Physician History of Present Illness: Pt seen & examined this morning, with no complaints, breathing a bit more comfortably Voiding regularly without discomfort. Reports some leg discomfort consistent w/ prior neuropathy Abd still feels firm but less tense and pt denies domingo pain or PO intolerance 24hr inputs: 1.4, outputs: 2.9, net neg 1.5L Had PTT peak at 83 o/n but on repeat measure today is at 48 - Current Medication List Current Medications: Active Medications Acetaminophen (Tylenol -) 650 mg PO Q6H PRN PRN Reason: PAIN Last Admin: 05/28/18 02:45 Dose: 650 mg Albuterol Sulfate (Ventolin Hfa Inhaler -) 2 puff IH Q4H PRN PRN Reason: SHORT OF BREATH/WHEEZING Atorvastatin Calcium (Lipitor -) 20 mg PO HS [facility] Last Admin: 05/27/18 21:35 Dose: 20 mg Bacitracin (Bacitracin -) 1 applic TP DAILY [facility] Last Admin: 05/28/18 09:22 Dose: 1 applic Budesonide/Formoterol Fumarate (Symbicort 160/4.5mcg -) 2 puff IH BID [facility] Last Admin: 05/28/18 09:22 Dose: 2 puff Carvedilol (Coreg -) 12.5 mg PO BID [facility] Last Admin: 05/28/18 09:21 Dose: 12.5 mg Furosemide (Lasix Injection -) 40 mg IVPB BIDLASIX [facility]MY[facility] Last Admin: 05/28/18 06:10 Dose: 40 mg Gabapentin (Neurontin -) 100 mg PO BID [facility] Last Admin: 05/28/18 09:21 Dose: 100 mg Heparin Sodium (Porcine) (Heparin -) 1,000 unit IVPUSH PRN PRN PRN Reason: Heparin Last Admin: 05/27/18 18:21 Dose: 1,000 unit Heparin Sodium (Porcine) (Heparin -) 5,000 unit IVPUSH PRN PRN PRN Reason: Heparin Heparin Sodium (Porcine) 25, (000 unit/ Sodium Chloride) 500 mls @ 20 mls/hr IV TITR SOWMY[facility]; Protocol Last Titration: 05/28/18 01:00 Dose: 1,250 unit/hr, 25 mls/hr Lisinopril (Prinivil) 20 mg PO DAILY [facility] Last Admin: 05/28/18 09:22 Dose: 20 mg Magnesium Oxide (Mag-Ox -) 400 mg PO BID [facility] Last Admin: 05/28/18 09:21 Dose: 400 mg Metoprolol Tartrate (Lopressor Injection -) 5 mg IVPUSH Q4H PRN PRN Reason: TACHYCARDIA Spironolactone (Aldactone -) 50 mg PO BID [facility] Last Admin: 05/28/18 09:21 Dose: 50 mg - Objective Vital Signs: Vital Signs Temperature 98.2 F 05/28/18 10:00 Pulse Rate 86 05/28/18 10:00 Respiratory Rate 20 05/28/18 10:00 Blood Pressure 132/81 05/28/18 10:00 O2 Sat by Pulse Oximetry (%) 95 05/28/18 09:00 Constitutional: Yes: Well Nourished, No Distress, Obese Eyes: Yes: Conjunctiva Clear, EOM Intact (no iceterus or pallor) HENT: Yes: Atraumatic, Normocephalic (moist mucosal membranes) Neck: Yes: Supple Cardiovascular: Yes: Regular Rate and Rhythm (nrml s1 &s2 no murmurs or rubs) Respiratory: Yes: Regular, CTA Bilaterally (diminished bibasilar breath sounds, no wheezing) Gastrointestinal: Yes: Normal Bowel Sounds, Abdomen, Obese, Ascites, Distention (non tender) Extremities: Yes: Other (b/l LE edema, symmteric & pitting, cool to touch but with palpable radial & DP Pulses b/l) Labs: CBC, BMP 05/28/18 09:07 05/28/18 09:07 INR, PTT INR 1.42 (0.83-1.09) H 05/19/18 15:35 Problem List - Problems (1) Afib Assessment/Plan: Pt presently rate controlled on 12.5mg BID carvedilol Pts home DOAC has been held in preparation for upcoming paracentesis to drain abd ascites, has been placed on heparin Gtt as bridge, goal PTT at 1.5 upper limit of nrml ~ 45- 55, most recently at goal at current heparin rate of 22ml/hr Continue heparin until notified by IR about timing of propsed praracentesis, likely 6-8 hrs prior Code(s): I48.91 - UNSPECIFIED ATRIAL FIBRILLATION Qualifiers: Atrial fibrillation type: persistent Qualified Code(s): I48.1 - Persistent atrial fibrillation (2) Anasarca Assessment/Plan: c/w diuresis w/ 100mg aldactone BID Lasix 40mg IV target ne neg fluid balance of -1L to 2L per day as tolerated w/o orthostatics or worsening renal function continue to monitor dialy UOP, I/O balance & daily weights Pt pending abd paracentesis by IR for alleviation of abd distention, ascites Code(s): R60.1 - GENERALIZED EDEMA (3) COPD (chronic obstructive pulmonary disease) Assessment/Plan: c/w IBD budesonide inh & PRN nebs monitor O2 sats w/ goal spo2 btwn 88-92% Code(s): J44.9 - CHRONIC OBSTRUCTIVE PULMONARY DISEASE, UNSPECIFIED (4) HTN (hypertension) Assessment/Plan: Target SBP < 120mmmhg/MAP ~ 65-70 c/w current regimen of carvedilol, aldactone, Lasix, Lisinopril maintain low sodium <2gm/day diet Code(s): I10 - ESSENTIAL (PRIMARY) HYPERTENSION Qualifiers: Hypertension type: essential hypertension Qualified Code(s): I10 - Essential (primary) hypertension (5) Heart failure, systolic, with acute decompensation Assessment/Plan: c/w current regimen of carvedilol, aldactone, Lasix, Lisinopril may be eventual candidate for entresto, may be initiated closer to discharge or as outpt and needs to be off ELIJAH-I for at least 24hrs prior maintain low sodium <2gm/day diet Code(s): I50.23 - ACUTE ON CHRONIC SYSTOLIC (CONGESTIVE) HEART FAILURE (6) Morbid obesity with BMI of 40.0-44.9, adult Assessment/Plan: Maintain on calorie restricted diet, would likely benefit from outpt stock analyst for diet optimization Code(s): E66.01 - MORBID (SEVERE) OBESITY DUE TO EXCESS CALORIES; Z68.41 - BODY MASS INDEX (BMI) 40.0-44.9, ADULT (7) Respiratory distress Code(s): R06.03 - ACUTE RESPIRATORY DISTRESS (8) T2DM (type 2 diabetes mellitus) Assessment/Plan: Keep on diabetic diet A1c presently ~ 6.4% Maintain fasting gluc ~ 150-180mg during hospitalization, may need insulin coverage if glucose > 250 Pt to have gabapentin resumption to 100mg BID for neuropathy Code(s): E11.9 - TYPE 2 DIABETES MELLITUS WITHOUT COMPLICATIONS Qualifiers: Diabetes mellitus fdc insulin use: without manager intermediate use Diabetes mellitus complication status: with unspecified complications Qualified Code(s) : E11.8 - Type 2 diabetes mellitus with unspecified complications
[2018-05-28] MEDS: HEPARIN - 25,000 UNIT in SODIUM CHLORIDE 495 ML IV SCH (14:00)
[2018-05-28] MEDS: ATORVASTATIN CA 20 MG TABLET (FP) PO SCH (23:08)
[2018-05-29] MEDS: FUROSEMIDE 100 MG/10 ML INJECTABLE VIAL IVPB SCH ×2 (06:17→14:09)
[2018-05-29] MEDS: ACETAMINOPHEN 325 MG TABLET (FP) PO PRN (06:19)
--- NOTE | 2018-05-29 07:17 | PN ---
Progress Note (short form) - Note Progress Note: Chief Complaint: Events noted, notes reviewed, complaining of persistent dyspnea but improved, abdominal distention is persistent for paracentesis, denies any chest pain History of Present Illness: Seen and examined on telemetry. Events noted, notes reviewed, complaining of persistent dyspnea but improved, abdominal distention is persistent for paracentesis, denies any chest pain 05/22/2018 Echocardiography: Mod LAE, moderate-severe RV systolic dysfunction, moderate cLVH, severe decrease in LV systolic function LVEF 15-20%, moderate TR 09/30/2017 R&LHc at [facility]: Minor non-obstructive CAD, severe LV dysfunction, mod MR, severely elevated LVEDP and pulmonary pressures, low cardiac output, LVEF 20 % Current Medications: Current Medications Acetaminophen (Tylenol -) 650 mg PO Q6H PRN PRN Reason: PAIN Last Admin: 05/29/18 06:19 Dose: 650 mg Albuterol Sulfate (Ventolin Hfa Inhaler -) 2 puff IH Q4H PRN PRN Reason: SHORT OF BREATH/WHEEZING Atorvastatin Calcium (Lipitor -) 20 mg PO HS [facility] Last Admin: 05/28/18 23:08 Dose: 20 mg Bacitracin (Bacitracin -) 1 applic TP DAILY [facility] Last Admin: 05/28/18 09:22 Dose: 1 applic Budesonide/Formoterol Fumarate (Symbicort 160/4.5mcg -) 2 puff IH BID [facility] Last Admin: 05/28/18 23:08 Dose: 2 puff Carvedilol (Coreg -) 12.5 mg PO BID [facility] Last Admin: 05/28/18 23:08 Dose: 12.5 mg Furosemide (Lasix Injection -) 40 mg IVPB BIDLASIX [facility] Last Admin: 05/29/18 06:17 Dose: 40 mg Gabapentin (Neurontin -) 100 mg PO BID [facility] Last Admin: 05/28/18 23:07 Dose: 100 mg Heparin Sodium (Porcine) (Heparin -) 1,000 unit IVPUSH PRN PRN PRN Reason: Heparin Last Admin: 05/27/18 18:21 Dose: 1,000 unit Heparin Sodium (Porcine) (Heparin -) 5,000 unit IVPUSH PRN PRN PRN Reason: Heparin Heparin Sodium (Porcine) 25, (000 unit/ Sodium Chloride) 500 mls @ 20 mls/hr IV TITR [facility]; Protocol Last Admin: 05/28/18 14:00 Dose: 1,250 unit/hr, 25 mls/hr Lisinopril (Prinivil) 20 mg PO DAILY [facility] Last Admin: 05/28/18 09:22 Dose: 20 mg Magnesium Oxide (Mag-Ox -) 400 mg PO BID [facility] Last Admin: 05/28/18 23:07 Dose: 400 mg Metoprolol Tartrate (Lopressor Injection -) 5 mg IVPUSH Q4H PRN PRN Reason: TACHYCARDIA Spironolactone (Aldactone -) 50 mg PO BID [facility] Last Admin: 05/28/18 23:07 Dose: 50 mg Review of Systems Cardiovascular: As noted above Respiratory: denies: Cough or Sputum Production Gastrointestinal: denies: Nausea, Vomiting, Diarrhea, Constipation or Abdominal Discomfort Musculoskeletal: No Symptoms Reported Endocrine: No Symptoms Reported - Objective Vital Signs: Last Vital Signs Temp Pulse Resp BP Pulse Ox 97.8 F 78 20 132/68 94 L 05/29/18 01:35 05/29/18 01:35 05/29/18 01:35 05/29/18 01:35 05/28/18 21:00 Intake & Output 05/26/18 05/27/18 05/28/18 05/29/18 23:59 23:59 23:59 23:59 Intake Total 154 1322 1970 Output Total 2100 3200 3400 Balance -6 -8 -1430 Weight 281 lb 3.2 oz 282 lb 6 oz 282 lb 6.4 oz Neck: Supple Negative JVD No bruit Respiratory: Diminished breath sounds at the bases Cardiovascular: S1, S2 Irregularly Irregular Gastrointestinal: Soft Benign Distended Normal Bowel Sounds Ext: Edema Labs: CBC, BMP 05/28/18 09:07 05/28/18 09:07 Hepatic Panel Total Bilirubin 0.7 mg/dL (0.2-1) 05/28/18 09:07 AST 32 U/L (15-37) 05/28/18 09:07 ALT 20 U/L (13-61) 05/28/18 09:07 Alkaline Phosphatase 151 U/L (45-117) H 05/28/18 09:07 Albumin 2.9 g/dl (3.4-5.0) L 05/28/18 09:07 INR, PTT INR 1.42 (0.83-1.09) H 05/19/18 15:35 Assessment/Plan ASSESSMENT: 1. Acute hypoxic respiratory failure related to, 2. Acute on chronic class II NYHA classification LV failure related to systolic/ diastolic LV dysfunction, resolving 3. CAD non-obstructive disease angina pectoris 4. Atrial fibrillation with periods of RVR on DOAC's- held for paracentesis/on Heparin 5. HTN/hypertensive cardiomyopathy 6. DM 7. Hypercholesterolemia 8. Pleural effusion/Ascites, related to above 9. Exogenous obesity PLAN: 1. Continue IV Lasix and Aldactone- with close monitoring of renal function 2. Continue Coreg and dose titration as needed 3. Continue Lisinopril dose titration as needed with close monitoring of renal function, and as outlined eventually outpatient initiation of Entresto/as per guidelines 4. Continue Lipitor 5. Continue to hold Xarelto pending therapeutic paracentesis, Heparin drip in interim 6. As outlined ideally would recommend [employer]SE WORKER-D implant provided patient demonstrate compliance with medical therapy administration and F/U Gloria Burt MD
[2018-05-29] MEDS: LISINOPRIL 10 MG TABLET (FP) PO SCH (09:49)
[2018-05-29] MEDS: CARVEDILOL 12.5 MG TABLET (FP) PO SCH ×2 (09:49→22:06)
[2018-05-29] MEDS: GABAPENTIN 100 MG CAPSULE (FP) PO SCH ×2 (09:50→22:06)
[2018-05-29] MEDS: BACITRACIN 15 GM TUBE TOPICAL OINTMENT TP SCH (09:50)
[2018-05-29] MEDS: MAGNESIUM OXIDE 400 MG TABLET (FP) PO SCH ×2 (09:50→22:06)
[2018-05-29] MEDS: BUDESONIDE/FORMETEROL FUMARATE 160/4.5 mcg INHALER IH SCH ×2 (09:51→22:07)
[2018-05-29] MEDS: SPIRONOLACTONE 25 MG TABLET (FP) PO SCH ×2 (09:51→22:06)
[2018-05-29 10:07] LABS: BASO % 0.6 % (0-2.0); EOS % 1.3 % (0-4.5); HEMATOCRIT 32.3 % (35.4-49); HEMOGLOBIN 10.6 GM/dL (11.7-16.9); LYMPH % 10.9 % (8-40); MCH 27.1 pg (25.7-33.7); MCHC 32.8 g/dl (32.0-35.9); MEAN CELL VOLUME 82.6 fl (80-96); MEAN PLT VOLUME 11.4 fl (7.5-11.1); MONO % 12.6 % (3.8-10.2); NEUT % 74.6 % (42.8-82.8); PLATELET COUNT 127 K/MM3 (134-434); RBC 3.92 M/mm3 (4.00-5.60); RDW 18.8 % (11.9-15.9); WHITE BLOOD COUNT 6.4 K/mm3 (4.0-10.0)
[2018-05-29 10:16] LABS: ALBUMIN 2.8 g/dl (3.4-5.0); ALK PHOS 144 U/L (45-117); ANION GAP 4 MMOL/L (8-16); BILIRUBIN,TOTAL 0.8 mg/dL (0.2-1); BLOOD UREA NITROGEN 24 mg/dL (7-18); CALCIUM 8.6 mg/dL (8.5-10.1); CHLORIDE 100 mmol/L (98-107); CO2 34 mmol/L (21-32); CREATININE 1.2 mg/dL (0.55-1.3); GLUCOSE,RANDOM 121 mg/dL (74-106); MAGNESIUM 2.1 mg/dL (1.8-2.4); SGOT/AST 33 U/L (15-37); SGPT/ALT 21 U/L (13-61); SODIUM 138 mmol/L (136-145); TOT PROT 6.7 g/dl (6.4-8.2)
[2018-05-29 12:22] VITALS: BMI 41.6
[2018-05-29] MEDS: HEPARIN - 25,000 UNIT in SODIUM CHLORIDE 495 ML IV SCH (14:17)
--- NOTE | 2018-05-29 16:55 | PN ---
Physical Exam: SUBJECTIVE: Patient seen and examined at the bedside post paracentesis. feels well, in no acute distress. OBJECTIVE: s/p paracentesis with 4 liters removal today. heparin drip on hold for procedure restart xarelto 20mg daily now monitor BP Vital Signs Period Temp Pulse Resp BP Sys/Rosado Pulse Ox Last 24 Hr 97.6 F-98.9 F 63-78 20-20 122-140/8-81 94-95 GENERAL: The patient is awake, alert, and fully oriented, in no acute distress. HEAD: Normal with no signs of trauma. EYES: PERRL, extraocular movements intact, sclera anicteric, conjunctiva clear. No ptosis. ENT: Ears normal, nares patent, oropharynx clear without exudates, moist mucous membranes. NECK: Trachea midline, full range of motion, supple. LUNGS: diminished bilateraly ABDOMEN: s/p paracentesis today with 4 liters removed. rebound, no hepatosplenomegaly, no masses. EXTREMITIES: 2+ pulses, warm, well-perfused, no edema. NEUROLOGICAL: Cranial nerves II through XII grossly intact. Normal speech, gait not observed. PSYCH: Normal mood, normal affect. SKIN: lower ext with disoloration and leg wounds. legs cleaned and bacitracin added. legs wrapped in verónica. Laboratory Results - last 24 hr 05/21/18 05/28/18 05/28/18 17:08 17:01 23:05 WBC RBC Hgb Hct MCV MCH MCHC RDW Plt Count MPV Absolute Neuts (auto) Neutrophils % Lymphocytes % Monocytes % Eosinophils % Basophils % Nucleated RBC % Platelet Comment PTT (Actin FS) Sodium Potassium Chloride Carbon Dioxide Anion Gap BUN Creatinine Creat Clearance w eGFR POC Glucometer 171 162 Random Glucose Calcium Magnesium Total Bilirubin AST ALT Alkaline Phosphatase Total Protein Albumin Benzoylecgonine No Result Required. 05/29/18 05/29/18 05/29/18 06:16 09:06 09:06 WBC 6.4 RBC 3.92 L Hgb 10.6 L Hct 32.3 L MCV 82.6 MCH 27.1 MCHC 32.8 RDW 18.8 H Plt Count 127 L MPV 11.4 H Absolute Neuts (auto) 4.8 Neutrophils % 74.6 Lymphocytes % 10.9 Monocytes % 12.6 H Eosinophils % 1.3 Basophils % 0.6 Nucleated RBC % 0 Platelet Comment No clumping noted PTT (Actin FS) 36.3 Sodium Potassium Chloride Carbon Dioxide Anion Gap BUN Creatinine Creat Clearance w eGFR POC Glucometer 153 Random Glucose Calcium Magnesium Total Bilirubin AST ALT Alkaline Phosphatase Total Protein Albumin Benzoylecgonine 05/29/18 09:06 WBC RBC Hgb Hct MCV MCH MCHC RDW Plt Count MPV Absolute Neuts (auto) Neutrophils % Lymphocytes % Monocytes % Eosinophils % Basophils % Nucleated RBC % Platelet Comment PTT (Actin FS) Sodium 138 Potassium 4.0 Chloride 100 Carbon Dioxide 34 H Anion Gap 4 L BUN 24 H Creatinine 1.2 Creat Clearance w eGFR 61.35 POC Glucometer Random Glucose 121 H Calcium 8.6 Magnesium 2.1 Total Bilirubin 0.8 AST 33 ALT 21 Alkaline Phosphatase 144 H Total Protein 6.7 Albumin 2.8 L Benzoylecgonine Active Medications Generic Name Dose Route Start Last Admin Trade Name Freq PRN Reason Stop Dose Admin Acetaminophen 650 mg 05/25/18 19:36 05/29/18 06:19 Tylenol - PO 650 mg Q6H PRN Administration PAIN Albuterol Sulfate 2 puff 05/22/18 11:48 Ventolin Hfa Inhaler - IH Q4H PRN SHORT OF BREATH/WHEEZING Atorvastatin Calcium 20 mg 05/21/18 22:00 05/28/18 23:08 Lipitor - PO 20 mg HS SOWMYA Administration Bacitracin 1 applic 05/23/18 15:45 05/29/18 09:50 Bacitracin - TP 1 applic DAILY [facility]OW[facility] Administration Budesonide/Formoterol Fumarate 2 puff 05/19/18 22:00 05/29/18 09:51 Symbicort 160/4.5mcg - IH 2 puff BID SOWMYA Administration Carvedilol 25 mg 05/29/18 10:00 05/29/18 09:49 Coreg - PO 25 mg BID SOWMYA Administration Furosemide 40 mg 05/24/18 14:00 05/29/18 14:09 Lasix Injection - IVPB 40 mg BIDLASIX SOWMYA Administration Gabapentin 100 mg 05/28/18 10:00 05/29/18 09:50 Neurontin - PO 100 mg BID SOWMYA Administration Heparin Sodium (Porcine) 1,000 unit 05/25/18 14:00 05/27/18 18:21 Heparin - IVPUSH 1,000 unit PRN PRN Administration Heparin Heparin Sodium (Porcine) 5,000 unit 05/25/18 14:00 Heparin - IVPUSH PRN PRN Heparin Heparin Sodium (Porcine) 25, 500 mls @ 20 mls/hr 05/25/18 14:00 05/29/18 14: 17 000 unit/ Sodium Chloride IV Not Given TITR SOWMYA Protocol 1,000 UNIT/HR Lisinopril 20 mg 05/24/18 13:27 05/29/18 09:49 Prinivil PO 20 mg DAILY [facility] Administration Magnesium Oxide 400 mg 05/25/18 22:00 05/29/18 09:50 Mag-Ox - PO 400 mg BID [facility] Administration Spironolactone 50 mg 05/27/18 10:00 05/29/18 09:51 Aldactone - PO 50 mg BID SOWMYA Administration ASSESSMENT/PLAN: Patient is a 62 year old male admitted on 05/19/18 with progressively worsening SOB x 4 days associated with dry cough, poor PO intake, generalized fatigue and inability to ambulate due to dyspnea. Patient states that this has been progressively worsening since his discharge last month from [facility] where he was hospitalized for CHF exacerbation. States that he had a paracentesis at that time where 2.8L were removed. Patient denies CP, fever, chills, N/V/C/D or orthopnea, denies abdominal pain. imaging: echo: left atrium moderately dilated, mild mitral valve thickening,mild aortic sclerosis. mod tricusp regur. ef 15-20% Card: Congestive Heart failure. Systolic heart failure echo shows 15%-20%, bnp 9800, clinically with volume overload, presented with distended abdomen which worsened during hospital stay and lower ext weeping edema. he is s/p paracentesis with 4 liters removal total with IR. On beta blockers, lasix 40mg IV bid and Aldactone 50 qd daily weights. 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 Hypertension. controlled coreq 12.5 mg bid. monitor BP in the setting of paracentesis. Atrial fibrillation. restart xarelto 20mg tonight as he is s/p paracentesis. rate controlled Endocrine Diabetes. hmga1c 6.4. monitor serum glucose with am. labs. if elevated start SS. General: Morbid obesity Dietary follow up COPD tolerating room air not in exacerbation fen monitor intake and output low salt diet prophy: on xarelto 20mg daily protonix Visit type - Emergency Visit Emergency Visit: Yes ED Registration Date: 05/19/18 Care time: The patient presented to the Emergency Department on the above date and was hospitalized for further evaluation of their emergent condition. - New Patient This patient is new to me today: No - Critical Care Critical Care patient: No - Discharge Referral Referred to [facility] No
[2018-05-29] MEDS ORDERED: RIVAROXABAN 20 MG TABLET PO ONE (18:00)
[2018-05-29 18:19] LABS: BF WBC & OTHER NUCLEATED CELLS 310 /mm3
[2018-05-29 18:58] LABS: BODY FLUID MACROPHAGES 17 %; BODY FLUID MESOTHELIAL 3 %; BODY FLUID MONOCYTE 6 %
[2018-05-29] MEDS: ATORVASTATIN CA 20 MG TABLET (FP) PO SCH (22:06)
[2018-05-30] MEDS: FUROSEMIDE 100 MG/10 ML INJECTABLE VIAL IVPB SCH ×2 (05:26→14:19)
--- NOTE | 2018-05-30 06:36 | PN ---
Progress Note (short form) - Note Progress Note: Chief Complaint: Events noted, notes reviewed, complaining of persistent dyspnea but improved, abdominal distention is persistent but improved, denies any chest pain History of Present Illness: Seen and examined on telemetry. Events noted, notes reviewed, complaining of persistent dyspnea but improved, abdominal distention is persistent but improved , denies any chest pain 05/22/2018 Echocardiography: Mod LAE, moderate-severe RV systolic dysfunction, moderate cLVH, severe decrease in LV systolic function LVEF 15-20%, moderate TR 09/30/2017 R&LHc at [facility]: Minor non-obstructive CAD, severe LV dysfunction, mod MR, severely elevated LVEDP and pulmonary pressures, low cardiac output, LVEF 20 % Current Medications: Current Medications Acetaminophen (Tylenol -) 650 mg PO Q6H PRN PRN Reason: PAIN Last Admin: 05/29/18 06:19 Dose: 650 mg Albuterol Sulfate (Ventolin Hfa Inhaler -) 2 puff IH Q4H PRN PRN Reason: SHORT OF BREATH/WHEEZING Atorvastatin Calcium (Lipitor -) [address] [facility] Last Admin: 05/29/18 22:06 Dose: 20 mg Bacitracin (Bacitracin -) [address] [facility] Last Admin: 05/29/18 09:50 Dose: 1 applic Budesonide/Formoterol Fumarate (Symbicort 160/4.5mcg -) [address] [facility] Last Admin: 05/29/18 22:07 Dose: 2 puff Carvedilol (Coreg -) [address] [facility] Last Admin: 05/29/18 22:06 Dose: 25 mg Furosemide (Lasix Injection -) [address] [facility] Last Admin: 05/30/18 05:26 Dose: 40 mg Gabapentin (Neurontin -) [address] [facility] Last Admin: 05/29/18 22:06 Dose: 100 mg Lisinopril (Prinivil) [address] [facility] Last Admin: 05/29/18 09:49 Dose: 20 mg Magnesium Oxide (Mag-Ox -) [address] [facility] Last Admin: 05/29/18 22:06 Dose: 400 mg Pantoprazole Sodium (Protonix -) [address] [facility] Rivaroxaban (Xarelto -) 20 mg PO DAILY@1800 [facility] Spironolactone (Aldactone -) [address] [facility] Last Admin: 05/29/18 22:06 Dose: 50 mg Review of Systems Cardiovascular: As noted above Respiratory: denies: Cough or Sputum Production Gastrointestinal: denies: Nausea, Vomiting, Diarrhea, Constipation or Abdominal Discomfort Musculoskeletal: No Symptoms Reported Endocrine: No Symptoms Reported - Objective Vital Signs: Last Vital Signs Temp Pulse Resp BP Pulse Ox 97.8 F 75 20 118/77 94 L 05/30/18 05:00 05/30/18 05:00 05/30/18 05:00 05/30/18 05:00 05/29/18 20:56 Intake & Output 05/27/18 05/28/18 05/29/18 05/30/18 23:59 23:59 23:59 23:59 Intake Total 1322 1970 780 0 Output Total 3200 3400 1700 Balance -1878 -1430 -920 0 Weight 281 lb 3.2 oz 282 lb 6 oz 282 lb 6.4 oz 283 lb 1.6 oz Neck: Supple Negative JVD No bruit Respiratory: Diminished breath sounds at the bases Cardiovascular: S1, S2 Irregularly Irregular Gastrointestinal: Soft Benign Distended Normal Bowel Sounds Ext: Edema Labs: CBC, BMP 05/29/18 09:06 05/29/18 09:06 Hepatic Panel Total Bilirubin 0.8 mg/dL (0.2-1) 05/29/18 09:06 AST 33 U/L (15-37) 05/29/18 09:06 ALT 21 U/L (13-61) 05/29/18 09:06 Alkaline Phosphatase 144 U/L (45-117) H 05/29/18 09:06 Albumin 2.8 g/dl (3.4-5.0) L 05/29/18 09:06 INR, PTT INR 1.42 (0.83-1.09) H 05/19/18 15:35 Assessment/Plan ASSESSMENT: 1. Acute hypoxic respiratory failure related to, 2. Acute on chronic class II NYHA classification LV failure related to systolic/ diastolic LV dysfunction, resolving 3. CAD non-obstructive disease angina pectoris 4. Atrial fibrillation with periods of RVR on DOAC's- held for paracentesis/to resumed post paracentesis completion 5. HTN/hypertensive cardiomyopathy 6. DM 7. Hypercholesterolemia 8. Pleural effusion/Ascites- post paracentesis, related to above 9. Exogenous obesity PLAN: 1. Continue IV Lasix and Aldactone/titrate dosage- with close monitoring of renal function 2. Continue Coreg 3. Continue Lisinopril dose titration as needed with close monitoring of renal function, and as outlined eventually outpatient initiation of Entresto/as per guidelines 4. Continue Lipitor 5. Continue to hold Xarelto pending therapeutic paracentesis completion, Heparin drip in interim 6. As outlined ideally would recommend [employer]-D implant provided patient demonstrate compliance with medical therapy administration and F/U, outpatient F /U Gloria Burt MD
[2018-05-30] MEDS: ACETAMINOPHEN 325 MG TABLET (FP) PO PRN ×2 (09:20→22:33)
[2018-05-30] MEDS: BACITRACIN 15 GM TUBE TOPICAL OINTMENT TP SCH (09:20)
[2018-05-30] MEDS: PANTOPRAZOLE 40 MG TABLET (FP) PO SCH (09:20)
[2018-05-30] MEDS: LISINOPRIL 10 MG TABLET (FP) PO SCH (09:21)
[2018-05-30] MEDS: CARVEDILOL 12.5 MG TABLET (FP) PO SCH ×2 (09:21→22:33)
[2018-05-30] MEDS: GABAPENTIN 100 MG CAPSULE (FP) PO SCH ×2 (09:21→22:32)
[2018-05-30] MEDS: MAGNESIUM OXIDE 400 MG TABLET (FP) PO SCH ×2 (09:21→22:32)
[2018-05-30] MEDS: BUDESONIDE/FORMETEROL FUMARATE 160/4.5 mcg INHALER IH SCH ×2 (09:21→22:31)
[2018-05-30] MEDS: SPIRONOLACTONE 25 MG TABLET (FP) PO SCH ×2 (09:21→22:32)
[2018-05-30 11:50] LABS: BASO % 0.6 % (0-2.0); EOS % 1.7 % (0-4.5); HEMATOCRIT 32.7 % (35.4-49); HEMOGLOBIN 10.3 GM/dL (11.7-16.9); MCH 26.1 pg (25.7-33.7); MCHC 31.6 g/dl (32.0-35.9); MEAN CELL VOLUME 82.6 fl (80-96); NEUT % 70.7 % (42.8-82.8); PLATELET COUNT 140 K/MM3 (134-434); RBC 3.96 M/mm3 (4.00-5.60); RDW 19.3 % (11.9-15.9)
[2018-05-30 12:30] LABS: ALBUMIN 2.7 g/dl (3.4-5.0); ALK PHOS 161 U/L (45-117); ANION GAP 5 MMOL/L (8-16); BILIRUBIN,TOTAL 0.7 mg/dL (0.2-1); BLOOD UREA NITROGEN 21 mg/dL (7-18); CALCIUM 8.6 mg/dL (8.5-10.1); CHLORIDE 102 mmol/L (98-107); CO2 33 mmol/L (21-32); CREATININE 1.1 mg/dL (0.55-1.3); GLUCOSE,RANDOM 158 mg/dL (74-106); MAGNESIUM 2.1 mg/dL (1.8-2.4); POTASSIUM 3.9 mmol/L (3.5-5.1); SGOT/AST 41 U/L (15-37); SGPT/ALT 24 U/L (13-61); SODIUM 140 mmol/L (136-145); TOT PROT 6.4 g/dl (6.4-8.2)
--- NOTE | 2018-05-30 15:08 | PN ---
Physical Exam: SUBJECTIVE: Patient seen and examined 24HR EVENTS - s/p paracentesis 4L off - pt c/o moderate pain b/l LEs, which interferes with ambulation. OBJECTIVE: Vital Signs Period Temp Pulse Resp BP Sys/Rosado Pulse Ox Last 24 Hr 97.6 F-97.9 F 67-90 20-20 106-141/50-78 94-94 GENERAL: The patient is awake, alert, and fully oriented, in no acute distress. HEAD: Normal with no signs of trauma. EYES: PERRL, sclera anicteric, conjunctiva clear. ENT: nares patent, oropharynx clear without exudates, moist mucous membranes. NECK: Trachea midline, full range of motion, supple. LUNGS: Breath sounds equal, clear to auscultation bilaterally, no wheezes, no crackles, no accessory muscle use. HEART: Regular rate and rhythm, S1, S2 without murmur, rub or gallop. ABDOMEN: + distention, + increased girth, hypoactive BS, + tense, non-tender EXTREMITIES: + 3 edema b/l LEs, + ulcerations with venous stasis changes NEUROLOGICAL: Normal speech, gait not observed. PSYCH: Normal mood, normal affect. SKIN: Warm, dry, Laboratory Results - last 24 hr 05/29/18 05/30/18 05/30/18 15:00 11:30 11:30 WBC 6.0 RBC 3.96 L Hgb 10.3 L Hct 32.7 L MCV 82.6 MCH 26.1 MCHC 31.6 L RDW 19.3 H Plt Count 140 MPV 11.0 Absolute Neuts (auto) 4.3 Neutrophils % 70.7 Lymphocytes % 16.0 D Monocytes % 11.0 H Eosinophils % 1.7 Basophils % 0.6 Nucleated RBC % 0 PTT (Actin FS) 36.8 H Sodium Potassium Chloride Carbon Dioxide Anion Gap BUN Creatinine Creat Clearance w eGFR Random Glucose Calcium Magnesium Total Bilirubin AST ALT Alkaline Phosphatase Total Protein Albumin Fluid Source Peritoneal fluid Fluid WBC 310 Fluid RBC 926 Fluid Neutrophils 4 Fluid Lymphocytes 70 Pleural Monocytes 6 Pleural Macrophages 17 Pleural Mesothelial 3 05/30/18 11:30 WBC RBC Hgb Hct MCV MCH MCHC RDW Plt Count MPV Absolute Neuts (auto) Neutrophils % Lymphocytes % Monocytes % Eosinophils % Basophils % Nucleated RBC % PTT (Actin FS) Sodium 140 Potassium 3.9 Chloride 102 Carbon Dioxide 33 H Anion Gap 5 L BUN 21 H Creatinine 1.1 Creat Clearance w eGFR 67.83 Random Glucose 158 H Calcium 8.6 Magnesium 2.1 Total Bilirubin 0.7 AST 41 H ALT 24 Alkaline Phosphatase 161 H Total Protein 6.4 Albumin 2.7 L Fluid Source Fluid WBC Fluid RBC Fluid Neutrophils Fluid Lymphocytes Pleural Monocytes Pleural Macrophages Pleural Mesothelial Active Medications Generic Name Dose Route Start Last Admin Trade Name Freq PRN Reason Stop Dose Admin Acetaminophen 650 mg 05/25/18 19:36 05/30/18 09:20 Tylenol - PO 650 mg Q6H PRN Administration PAIN Albuterol Sulfate 2 puff 05/22/18 11:48 Ventolin Hfa Inhaler - IH Q4H PRN SHORT OF BREATH/WHEEZING Atorvastatin Calcium 20 mg 05/21/18 22:00 05/29/18 22:06 Lipitor - PO 20 mg HS SOWMYA Administration Bacitracin 1 applic 05/23/18 15:45 05/30/18 09:20 Bacitracin - TP 1 applic DAILY SOWMYA Administration Budesonide/Formoterol Fumarate 2 puff 05/19/18 22:00 05/30/18 09:21 Symbicort 160/4.5mcg - IH 2 puff BID SOWMYA Administration Carvedilol 25 mg 05/29/18 10:00 05/30/18 09:21 Coreg - PO 25 mg BID SOWMYA Administration Furosemide 40 mg 05/24/18 14:00 05/30/18 14:19 Lasix Injection - IVPB 40 mg BIDLASIX SOWMYA Administration Gabapentin 100 mg 05/28/18 10:00 05/30/18 09:21 Neurontin - PO 100 mg BID SOWMYA Administration Lisinopril 20 mg 05/24/18 13:27 05/30/18 09:21 Prinivil PO 20 mg DAILY SOWMYA Administration Magnesium Oxide 400 mg 05/25/18 22:00 05/30/18 09:21 Mag-Ox - PO 400 mg BID SOWMYA Administration Pantoprazole Sodium 40 mg 05/30/18 10:00 05/30/18 09:20 Protonix - PO 40 mg DAILY SOWMYA Administration Rivaroxaban 20 mg 05/30/18 18:00 05/30/18 11:03 Xarelto - PO 20 mg DAILY@1800 S[facility]MYA Administration Spironolactone 100 mg 05/30/18 22:00 Aldactone - PO BID REPLACED BY [facility] ASSESSMENT/PLAN: 62 year old male admitted on 05/19/18 with progressively worsening SOB x 4 days associated with dry cough, poor PO intake, generalized fatigue and inability to ambulate due to dyspnea. Patient states that this has been progressively worsening since his discharge last month from [facility] where he was hospitalized for CHF exacerbation. States that he had a paracentesis at that time where 2.8L were removed. Patient denies CP, fever, chills, N/V/C/D or orthopnea, denies abdominal pain. CV: Systolic heart failure (EF 15%-20%, bnp 9800 on admission) On beta blockers, lasix 40mg IV bid and Aldactone daily weights. Possible [employer] CONSULTANT device per cardiology, this will be after discharge home. Hypertension. controlled -lisinopril 20mg daily Atrial fibrillation (rate controlled) -xarelto 20mg (hold tonight for second paracentesis on 05/31). Start heparin drip -coreg 12.5 mg bid. . GI: Ascites s/p paracentesis with 4 liters removal -repeat abd sono today -repeat para with IR on 05/31 due to severe ascites Endocrine: Diabetes (A1c 6.4) Fingerstick AC/HS start insulin SS Pulm: COPD continue symbicort BID FEN: monitor intake and output low salt diet VASC: LE edema elevate extremities increase aldactone to 100mg BID, monitor K closely neurontin for peripheral neuropathy prophy: xarelto 20mg daily protonix DISPO: Home when stable Code status: Full Problem List - Problems (1) Afib Code(s): I48.91 - UNSPECIFIED ATRIAL FIBRILLATION Qualifiers: Atrial fibrillation type: persistent Qualified Code(s): I48.1 - Persistent atrial fibrillation (2) Anasarca Code(s): R60.1 - GENERALIZED EDEMA (3) COPD (chronic obstructive pulmonary disease) Code(s): J44.9 - CHRONIC OBSTRUCTIVE PULMONARY DISEASE, UNSPECIFIED (4) HTN (hypertension) Code(s): I10 - ESSENTIAL (PRIMARY) HYPERTENSION Qualifiers: Hypertension type: essential hypertension Qualified Code(s): I10 - Essential (primary) hypertension (5) Heart failure, systolic, with acute decompensation Code(s): I50.23 - ACUTE ON CHRONIC SYSTOLIC (CONGESTIVE) HEART FAILURE (6) Hypercholesteremia Code(s): E78.00 - PURE HYPERCHOLESTEROLEMIA, UNSPECIFIED (7) Morbid obesity with BMI of 40.0-44.9, adult Code(s): E66.01 - MORBID (SEVERE) OBESITY DUE TO EXCESS CALORIES; Z68.41 - BODY MASS INDEX (BMI) 40.0-44.9, ADULT (8) T2DM (type 2 diabetes mellitus) Code(s): E11.9 - TYPE 2 DIABETES MELLITUS WITHOUT COMPLICATIONS Qualifiers: 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 - New Patient This patient is new to me today: Yes Date on this admission: 05/30/18 - Critical Care Critical Care patient: No - Discharge Referral Referred to [facility] Med P.C.: No
[2018-05-30] MEDS ORDERED: HEPARIN NA (PORCINE) 5,000 UNITS/ML 1ML VIAL IVPUSH PRN ×2 (15:10→15:24)
[2018-05-30] MEDS: INSULIN SLIDING SCALE (NOVOLOG) 1 VIAL SQ SCH ×2 (17:31→22:32)
[2018-05-30] MEDS ORDERED: RIVAROXABAN 20 MG TABLET PO SCH (18:00)
[2018-05-30] MEDS: ATORVASTATIN CA 20 MG TABLET (FP) PO SCH (22:32)
[2018-05-30] MEDS ORDERED: HEPARIN SOD,PORK IN 0.45% NACL 25,000 UNITS/500 ML INFUS.BAG IVPB SCH (23:00)
[2018-05-31] MEDS: INSULIN SLIDING SCALE (NOVOLOG) 1 VIAL SQ SCH ×4 (06:08→22:01)
[2018-05-31] MEDS: FUROSEMIDE 100 MG/10 ML INJECTABLE VIAL IVPB SCH (06:08)
[2018-05-31 06:43] LABS: ALBUMIN 2.6 g/dl (3.4-5.0); ALK PHOS 173 U/L (45-117); ANION GAP 7 MMOL/L (8-16); BILIRUBIN,TOTAL 0.5 mg/dL (0.2-1); BLOOD UREA NITROGEN 20 mg/dL (7-18); CALCIUM 8.4 mg/dL (8.5-10.1); CHLORIDE 104 mmol/L (98-107); CO2 31 mmol/L (21-32); CREATININE 1.2 mg/dL (0.55-1.3); GAMMA GLUTAMYL TRANSPEPTIDASE 83 U/L (5-85); GLUCOSE,RANDOM 276 mg/dL (74-106); MAGNESIUM 2.2 mg/dL (1.8-2.4); N-TERMINAL BNP 4790.8 pg/ml (5-125); PHOSPHOROUS 2.9 mg/dL (2.5-4.9); POTASSIUM 3.8 mmol/L (3.5-5.1); SGOT/AST 30 U/L (15-37); SGPT/ALT 23 U/L (13-61); SODIUM 142 mmol/L (136-145); TOT PROT 5.9 g/dl (6.4-8.2)
--- NOTE | 2018-05-31 08:09 | PN ---
Physical Exam: SUBJECTIVE: Patient seen and examined 24HR Events: -xarelto on hold and heparin drip started in preparation for second therapeutic paracentesis on 05/31 -rpt abd sono on 05/30 demonstrates moderate amount of ascites within the upper and lower quadrants of the abdomen and pelvis -aldactone increased to 100mg BID OBJECTIVE: Vital Signs Period Temp Pulse Resp BP Sys/Rosado Pulse Ox Last 24 Hr 97.6 F-98.7 F 68-86 18-20 98-150/50-72 94-95 GENERAL: The patient is awake, alert, and fully oriented, in no acute distress. HEAD: Normal with no signs of trauma. EYES: PERRL, sclera anicteric, conjunctiva clear. ENT: nares patent, oropharynx clear without exudates, moist mucous membranes. NECK: Trachea midline, full range of motion, supple. LUNGS: Breath sounds equal, clear to auscultation bilaterally, no wheezes, no crackles, no accessory muscle use. HEART: Regular rate and rhythm, S1, S2 without murmur, rub or gallop. ABDOMEN: + distention, + increased girth, hypoactive BS, + tense, non-tender EXTREMITIES: + 3 edema b/l LEs, + ulcerations with venous stasis changes NEUROLOGICAL: Normal speech, gait not observed. PSYCH: Normal mood, normal affect. SKIN: Warm, dry, Laboratory Results - last 24 hr 05/30/18 05/30/18 05/30/18 11:30 11:30 11:30 WBC 6.0 RBC 3.96 L Hgb 10.3 L Hct 32.7 L MCV 82.6 MCH 26.1 MCHC 31.6 L RDW 19.3 H Plt Count 140 MPV 11.0 Absolute Neuts (auto) 4.3 Neutrophils % 70.7 Lymphocytes % 16.0 D Monocytes % 11.0 H Eosinophils % 1.7 Basophils % 0.6 Nucleated RBC % 0 PTT (Actin FS) 36.8 H Sodium 140 Potassium 3.9 Chloride 102 Carbon Dioxide 33 H Anion Gap 5 L BUN 21 H Creatinine 1.1 Creat Clearance w eGFR 67.83 POC Glucometer Random Glucose 158 H Calcium 8.6 Phosphorus Magnesium 2.1 Total Bilirubin 0.7 GGT AST 41 H ALT 24 Alkaline Phosphatase 161 H B-Natriuretic Peptide Total Protein 6.4 Albumin 2.7 L 0405/31/18 05/31/18 22:30 05:30 06:02 WBC RBC Hgb Hct MCV MCH MCHC RDW Plt Count MPV Absolute Neuts (auto) Neutrophils % Lymphocytes % Monocytes % Eosinophils % Basophils % Nucleated RBC % PTT (Actin FS) Sodium 142 Potassium 3.8 Chloride 104 Carbon Dioxide 31 Anion Gap 7 L BUN 20 H Creatinine 1.2 Creat Clearance w eGFR 61.35 POC Glucometer 179 248 Random Glucose 276 H Calcium 8.4 L Phosphorus 2.9 Magnesium 2.2 Total Bilirubin 0.5 GGT 83 AST 30 ALT 23 Alkaline Phosphatase 173 H B-Natriuretic Peptide 4790.8 H Total Protein 5.9 L Albumin 2.6 L Active Medications Generic Name Dose Route Start Last Admin Trade Name Freq PRN Reason Stop Dose Admin Acetaminophen 650 mg 05/25/18 19:36 05/30/18 22:33 Tylenol - PO 650 mg Q6H PRN Administration PAIN Albuterol Sulfate 2 puff 05/22/18 11:48 Ventolin Hfa Inhaler - IH Q4H PRN SHORT OF BREATH/WHEEZING Atorvastatin Calcium 20 mg 05/21/18 22:00 05/30/18 22:32 Lipitor - PO 20 mg HS SOWMYA Administration Bacitracin 1 applic 05/23/18 15:45 05/30/18 09:20 Bacitracin - TP 1 applic DAILY S[facility] Administration Budesonide/Formoterol Fumarate 2 puff 05/19/18 22:00 05/30/18 22:31 Symbicort 160/4.5mcg - IH 2 puff BID S[facility]MYA Administration Carvedilol 25 mg 05/29/18 10:00 05/30/18 22:33 Coreg - PO 25 mg BID S[facility] Administration Furosemide 40 mg 05/24/18 14:00 05/31/18 06:08 Lasix Injection - IVPB 40 mg BIDLASIX SOWMYA Administration Gabapentin 100 mg 05/28/18 10:00 05/30/18 22:32 Neurontin - PO 100 mg BID S[facility] Administration Heparin Sodium (Porcine) 1,000 unit 05/30/18 15:10 Heparin - IVPUSH PRN PRN Heparin Heparin Sodium (Porcine) 5,000 unit 05/30/18 15:24 Heparin - IVPUSH PRN PRN heparin HEPARIN SOD,PORK IN 0.45% NACL 25,000 units in 500 mls @ 20 mls/hr 05/30/18 23 :00 05/30/18 23:45 Heparin-1/2ns 25,000 Units/500 IVPB 1,000 units/hr TITR SOWMYA 20 mls/hr Administration Protocol 1,000 UNITS/HR Insulin Aspart 1 vial 05/30/18 16:30 05/31/18 06:08 Novolog Vial Sliding Scale - SQ 2 units ACHS SOWMYA Administration Protocol Lisinopril 20 mg 05/24/18 13:27 05/30/18 09:21 Prinivil PO 20 mg DAILY SOWMYA Administration Magnesium Oxide 400 mg 05/25/18 22:00 05/30/18 22:32 Mag-Ox - PO 400 mg BID SOWMYA Administration Pantoprazole Sodium 40 mg 05/30/18 10:00 05/30/18 09:20 Protonix - PO 40 mg DAILY SOWMYA Administration Spironolactone 100 mg 05/30/18 22:00 05/30/18 22:32 Aldactone - PO 100 mg BID SOWMYA Administration ASSESSMENT/PLAN: 62 year old male admitted on 05/19/18 with progressively worsening SOB x 4 days associated with dry cough, poor PO intake, generalized fatigue and inability to ambulate due to dyspnea. Patient states that this has been progressively worsening since his discharge last month from [facility] where he was hospitalized for CHF exacerbation. Patient now admitted to [facility] for further management and has undergone two paracentesis for large volume ascites. In addition, pt is grossly volume overloaded with +4 pitting LE edema being treated with IV lasix and aldactone. CV: Systolic heart failure (EF 15%-20%, BNP 9800 on admission) On beta blockers, increase lasix 40mg IV TID aldactone to 100mg BID, monitor K and Cr closely daily weights - weight continues to uptrend despite lasix and aldactone therapy. pt may need intensification of therapy or switching aldactone to metolazone for greater diuretic effect. Possible BEE BREEDER device per cardiology, this will be after discharge home. Hypertension. controlled -lisinopril 20mg daily Atrial fibrillation (rate controlled) -resume xarelto 20mg tonight -coreg 12.5 mg bid. GI: Ascites s/p paracentesis with 4 liters removal -s/p therapeutic paracentesis with IR on 05/29 and 05/31 due to persistent ascites Endocrine: Diabetes (A1c 6.4) Fingerstick AC/HS start insulin SS Pulm: COPD continue symbicort BID FEN: monitor intake and output low salt diet VASC: LE edema elevate extremities meticulous wound care neurontin for peripheral neuropathy prophy: xarelto 20mg daily protonix DISPO: Home when stable Code status: Full Problem List - Problems (1) Afib Code(s): I48.91 - UNSPECIFIED ATRIAL FIBRILLATION Qualifiers: Atrial fibrillation type: persistent Qualified Code(s): I48.1 - Persistent atrial fibrillation (2) Anasarca Code(s): R60.1 - GENERALIZED EDEMA (3) COPD (chronic obstructive pulmonary disease) Code(s): J44.9 - CHRONIC OBSTRUCTIVE PULMONARY DISEASE, UNSPECIFIED (4) HTN (hypertension) Code(s): I10 - ESSENTIAL (PRIMARY) HYPERTENSION Qualifiers: Hypertension type: essential hypertension Qualified Code(s): I10 - Essential (primary) hypertension (5) Heart failure, systolic, with acute decompensation Code(s): I50.23 - ACUTE ON CHRONIC SYSTOLIC (CONGESTIVE) HEART FAILURE (6) Hypercholesteremia Code(s): E78.00 - PURE HYPERCHOLESTEROLEMIA, UNSPECIFIED (7) Morbid obesity with BMI of 40.0-44.9, adult Code(s): E66.01 - MORBID (SEVERE) OBESITY DUE TO EXCESS CALORIES; Z68.41 - BODY MASS INDEX (BMI) 40.0-44.9, ADULT (8) T2DM (type 2 diabetes mellitus) Code(s): E11.9 - TYPE 2 DIABETES MELLITUS WITHOUT COMPLICATIONS Qualifiers: Diabetes mellitus fpc insulin use: without parts counterman use Diabetes mellitus complication status: with unspecified complications Qualified Code(s) : E11.8 - Type 2 diabetes mellitus with unspecified complications Visit type - Emergency Visit Emergency Visit: Yes ED Registration Date: 05/19/18 Care time: The patient presented to the Emergency Department on the above date and was hospitalized for further evaluation of their emergent condition. - New Patient This patient is new to me today: No - Critical Care Critical Care patient: No - Discharge Referral Referred to [facility] Med P.C.: No
--- NOTE | 2018-05-31 08:34 | PN ---
Progress Note (short form) - Note Progress Note: Chief Complaint: Events noted, notes reviewed, complaining of persistent dyspnea but improved, abdominal distention is persistent but improved, denies any chest pain History of Present Illness: Seen and examined on telemetry. Events noted, notes reviewed, complaining of persistent dyspnea but improved, abdominal distention is persistent but improved , denies any chest pain For repeat paracentesis today 05/22/2018 Echocardiography: Mod LAE, moderate-severe RV systolic dysfunction, moderate cLVH, severe decrease in LV systolic function LVEF 15-20%, moderate TR 09/30/2017 R&LHc at [facility]: Minor non-obstructive CAD, severe LV dysfunction, mod MR, severely elevated LVEDP and pulmonary pressures, low cardiac output, LVEF 20 % Current Medications: Current Medications Acetaminophen (Tylenol -) 650 mg PO Q6H PRN PRN Reason: PAIN Last Admin: 05/30/18 22:33 Dose: 650 mg Albuterol Sulfate (Ventolin Hfa Inhaler -) 2 puff IH Q4H PRN PRN Reason: SHORT OF BREATH/WHEEZING Atorvastatin Calcium (Lipitor -) 20 mg PO HS [facility] Last Admin: 05/30/18 22:32 Dose: 20 mg Bacitracin (Bacitracin -) 1 applic TP DAILY [facility] Last Admin: 05/30/18 09:20 Dose: 1 applic Budesonide/Formoterol Fumarate (Symbicort 160/4.5mcg -) 2 puff IH BID [facility] Last Admin: 05/30/18 22:31 Dose: 2 puff Carvedilol (Coreg -) 25 mg PO BID [facility] Last Admin: 05/30/18 22:33 Dose: 25 mg Furosemide (Lasix Injection -) 40 mg IVPB BIDLASIX [facility] Last Admin: 05/31/18 06:08 Dose: 40 mg Gabapentin (Neurontin -) 100 mg PO BID [facility] Last Admin: 05/30/18 22:32 Dose: 100 mg Heparin Sodium (Porcine) (Heparin -) 1,000 unit IVPUSH PRN PRN PRN Reason: Heparin Heparin Sodium (Porcine) (Heparin -) 5,000 unit IVPUSH PRN PRN PRN Reason: heparin HEPARIN SOD,PORK IN 0.45% NACL (Heparin-1/2ns 25,000 Units/500) 25,000 units in 500 mls @ 20 mls/hr IVPB TITR [facility]; Protocol Last Admin: 05/30/18 23:45 Dose: 1,000 units/hr, 20 mls/hr Insulin Aspart (Novolog Vial Sliding Scale -) 1 vial SQ ACHS [facility]; Protocol Last Admin: 05/31/18 06:08 Dose: 2 units Lisinopril (Prinivil) 20 mg PO DAILY [facility] Last Admin: 05/30/18 09:21 Dose: 20 mg Magnesium Oxide (Mag-Ox -) 400 mg PO BID [facility] Last Admin: 05/30/18 22:32 Dose: 400 mg Pantoprazole Sodium (Protonix -) 40 mg PO DAILY [facility] Last Admin: 05/30/18 09:20 Dose: 40 mg Spironolactone (Aldactone -) 100 mg PO BID [facility] Last Admin: 05/30/18 22:32 Dose: 100 mg Review of Systems Cardiovascular: As noted above Respiratory: denies: Cough or Sputum Production Gastrointestinal: denies: Nausea, Vomiting, Diarrhea, Constipation or Abdominal Discomfort Musculoskeletal: No Symptoms Reported Endocrine: No Symptoms Reported - Objective Vital Signs: Last Vital Signs Temp Pulse Resp BP Pulse Ox 98.7 F 82 19 98/54 L 95 05/31/18 05:00 05/31/18 05:00 05/31/18 05:00 05/31/18 05:00 05/30/18 21:00 Intake & Output 05/28/18 05/29/18 05/30/18 05/31/18 23:59 23:59 23:59 23:59 Intake Total 1970 780 960 400 Output Total 3400 1700 725 525 Balance -1430 -920 235 -125 Weight 282 lb 6 oz 282 lb 6.4 oz 283 lb 1.6 oz 283 lb 6.4 oz Neck: Supple Negative JVD No bruit Respiratory: Diminished breath sounds at the bases Cardiovascular: S1, S2 Irregularly Irregular Gastrointestinal: Soft Benign Distended Normal Bowel Sounds Ext: Edema Labs: CBC, BMP 05/31/18 05:30 05/31/18 05:30 Hepatic Panel Total Bilirubin 0.5 mg/dL (0.2-1) 05/31/18 05:30 AST 30 U/L (15-37) 05/31/18 05:30 ALT 23 U/L (13-61) 05/31/18 05:30 Alkaline Phosphatase 173 U/L (45-117) H 05/31/18 05:30 Albumin 2.6 g/dl (3.4-5.0) L 05/31/18 05:30 INR, PTT INR 1.42 (0.83-1.09) H 05/19/18 15:35 Assessment/Plan ASSESSMENT: 1. Acute hypoxic respiratory failure related to, 2. Acute on chronic class II NYHA classification LV failure related to systolic/ diastolic LV dysfunction, resolving 3. CAD non-obstructive disease angina pectoris 4. Atrial fibrillation with periods of RVR on DOAC's- held for paracentesis/to be resumed post paracentesis completion 5. HTN/hypertensive cardiomyopathy 6. DM 7. Hypercholesterolemia 8. Pleural effusion/Ascites- post paracentesis, related to above 9. Exogenous obesity PLAN: 1. Continue IV Lasix and Aldactone/titrate dosage- with close monitoring of renal function 2. Continue Coreg 3. Continue Lisinopril dose titration as needed with close monitoring of renal function, and as outlined eventually outpatient initiation of Entresto/as per guidelines 4. Continue Lipitor 5. Continue to hold Xarelto pending therapeutic paracentesis completion ( another session today), Heparin drip in interim 6. As outlined ideally would recommend [employer]-D implant provided patient demonstrate compliance with medical therapy administration and F/U, outpatient F /U Gloria Burt MD
[2018-05-31 09:37] LABS: HEMATOCRIT 30.5 % (35.4-49); HEMOGLOBIN 9.8 GM/dL (11.7-16.9); MCH 26.6 pg (25.7-33.7); MEAN CELL VOLUME 82.9 fl (80-96); MEAN PLT VOLUME 11.7 fl (7.5-11.1); PLATELET COUNT 125 K/MM3 (134-434); RBC 3.68 M/mm3 (4.00-5.60); RDW 19.4 % (11.9-15.9); WHITE BLOOD COUNT 6.1 K/mm3 (4.0-10.0)
[2018-05-31] MEDS: BACITRACIN 15 GM TUBE TOPICAL OINTMENT TP SCH (10:23)
[2018-05-31] MEDS: ACETAMINOPHEN 325 MG TABLET (FP) PO PRN ×2 (10:23→20:53)
[2018-05-31] MEDS: GABAPENTIN 100 MG CAPSULE (FP) PO SCH ×2 (10:24→22:01)
[2018-05-31] MEDS: LISINOPRIL 10 MG TABLET (FP) PO SCH (10:24)
[2018-05-31] MEDS: CARVEDILOL 12.5 MG TABLET (FP) PO SCH ×2 (10:24→22:00)
[2018-05-31] MEDS: PANTOPRAZOLE 40 MG TABLET (FP) PO SCH (10:24)
[2018-05-31] MEDS: SPIRONOLACTONE 25 MG TABLET (FP) PO SCH ×2 (10:24→22:01)
[2018-05-31] MEDS: BUDESONIDE/FORMETEROL FUMARATE 160/4.5 mcg INHALER IH SCH ×2 (10:25→22:07)
[2018-05-31] MEDS: MAGNESIUM OXIDE 400 MG TABLET (FP) PO SCH ×2 (10:25→22:00)
--- NOTE | 2018-05-31 13:22 | PATH ---
Cytology Non-Gynecological Report Patient Name: ALONDRA BRITT Med. Rec. #: [id number] /Age/Gender: 1955 (Age: 62) / M Account: [id number] Location: 4 W TELEMETRY U Taken: 05/29/2018 Received: 05/30/2018 Reported: 05/31/2018 Physicians: Joseph Almendarez M.D. Specimen(s) Received PERITONEAL FLUID Clinical History None given Final Diagnosis ABDOMINAL FLUID, PARACENTESIS: SATISFACTORY FOR EVALUATION BENIGN (NO MALIGNANT CELLS IDENTIFIED) MESOTHELIAL CELLS, HISTIOCYTES AND LYMPHOCYTES PRESENT. Comment: Recommend correlation with clinical findings and follow up as clinically indicated. Electronically Signed Dante Lee M.D. Gross Description Approximately 35 cc of yellow fluid received fixed in 50% alcohol. One cytofunnel and one cellblock prepared.
[2018-05-31] MEDS: FUROSEMIDE 40 MG/4 ML INJECTABLE VIAL IVPUSH SCH ×2 (13:26→22:01)
[2018-05-31 15:14] LABS: BODY FLUID ALBUMIN 1.8 g/dL (.)
[2018-05-31] MEDS: RIVAROXABAN 20 MG TABLET PO SCH (18:21)
[2018-05-31] MEDS: ATORVASTATIN CA 20 MG TABLET (FP) PO SCH (22:01)
[2018-06-01] MEDS: ACETAMINOPHEN 325 MG TABLET (FP) PO PRN ×3 (04:23→18:31)
[2018-06-01] MEDS: INSULIN SLIDING SCALE (NOVOLOG) 1 VIAL SQ SCH ×4 (06:25→22:00)
[2018-06-01] MEDS: FUROSEMIDE 40 MG/4 ML INJECTABLE VIAL IVPUSH SCH ×2 (06:26→14:08)
[2018-06-01 06:32] LABS: HEMATOCRIT 30.8 % (35.4-49); HEMOGLOBIN 10.1 GM/dL (11.7-16.9); MCH 26.8 pg (25.7-33.7); MCHC 32.7 g/dl (32.0-35.9); MEAN CELL VOLUME 82.1 fl (80-96); MEAN PLT VOLUME 10.9 fl (7.5-11.1); PLATELET COUNT 151 K/MM3 (134-434); RBC 3.75 M/mm3 (4.00-5.60); RDW 19.5 % (11.9-15.9); WHITE BLOOD COUNT 6.1 K/mm3 (4.0-10.0)
[2018-06-01 07:10] LABS: ALBUMIN 2.4 g/dl (3.4-5.0); ALK PHOS 139 U/L (45-117); ANION GAP 4 MMOL/L (8-16); BILIRUBIN,TOTAL 0.8 mg/dL (0.2-1); BLOOD UREA NITROGEN 21 mg/dL (7-18); CALCIUM 8.1 mg/dL (8.5-10.1); CHLORIDE 103 mmol/L (98-107); CO2 31 mmol/L (21-32); CREATININE 1.2 mg/dL (0.55-1.3); GLUCOSE,RANDOM 149 mg/dL (74-106); MAGNESIUM 1.9 mg/dL (1.8-2.4); PHOSPHOROUS 3.5 mg/dL (2.5-4.9); POTASSIUM 4.1 mmol/L (3.5-5.1); SGOT/AST 26 U/L (15-37); SGPT/ALT 23 U/L (13-61); SODIUM 138 mmol/L (136-145)
[2018-06-01] MEDS: MAGNESIUM OXIDE 400 MG TABLET (FP) PO SCH ×2 (09:39→21:08)
[2018-06-01] MEDS: CARVEDILOL 12.5 MG TABLET (FP) PO SCH ×2 (09:39→21:08)
[2018-06-01] MEDS: LISINOPRIL 10 MG TABLET (FP) PO SCH (09:39)
[2018-06-01] MEDS: GABAPENTIN 100 MG CAPSULE (FP) PO SCH ×2 (09:39→21:08)
[2018-06-01] MEDS: PANTOPRAZOLE 40 MG TABLET (FP) PO SCH (09:40)
[2018-06-01] MEDS: SPIRONOLACTONE 25 MG TABLET (FP) PO SCH ×2 (09:40→21:08)
[2018-06-01] MEDS: BUDESONIDE/FORMETEROL FUMARATE 160/4.5 mcg INHALER IH SCH ×2 (09:40→21:09)
[2018-06-01] MEDS: BACITRACIN 15 GM TUBE TOPICAL OINTMENT TP SCH (09:42)
--- NOTE | 2018-06-01 10:06 | PN ---
Progress Note, Physician History of Present Illness: TOMLINSON, and distension and LE edema improving with diuresis and paracentesis, denies orthopnea. - Current Medication List Current Medications: Active Medications Acetaminophen (Tylenol -) 650 mg PO Q6H PRN PRN Reason: PAIN Last Admin: 06/01/18 04:23 Dose: 650 mg Albuterol Sulfate (Ventolin Hfa Inhaler -) 2 puff IH Q4H PRN PRN Reason: SHORT OF BREATH/WHEEZING Atorvastatin Calcium (Lipitor -) 20 mg PO HS [facility] Last Admin: 05/31/18 22:01 Dose: 20 mg Bacitracin (Bacitracin -) 1 applic TP DAILY [facility] Last Admin: 06/01/18 09:42 Dose: 1 applic Budesonide/Formoterol Fumarate (Symbicort 160/4.5mcg -) 2 puff IH BID [facility] Last Admin: 06/01/18 09:40 Dose: 2 puff Carvedilol (Coreg -) 25 mg PO BID [facility] Last Admin: 06/01/18 09:39 Dose: 25 mg Furosemide (Lasix Injection -) 40 mg IVPUSH TID [facility] Last Admin: 06/01/18 06:26 Dose: 40 mg Gabapentin (Neurontin -) 100 mg PO BID [facility] Last Admin: 06/01/18 09:39 Dose: 100 mg Insulin Aspart (Novolog Vial Sliding Scale -) 1 vial SQ ACHS [facility]; Protocol Last Admin: 06/01/18 06:25 Dose: Not Given Lisinopril (Prinivil) 20 mg PO DAILY [facility] Last Admin: 06/01/18 09:39 Dose: 20 mg Magnesium Oxide (Mag-Ox -) 400 mg PO BID [facility] Last Admin: 06/01/18 09:39 Dose: 400 mg Pantoprazole Sodium (Protonix -) 40 mg PO DAILY [facility] Last Admin: 06/01/18 09:40 Dose: 40 mg Rivaroxaban (Xarelto -) 20 mg PO DAILY@1800 [facility] Last Admin: 05/31/18 18:21 Dose: 20 mg Spironolactone (Aldactone -) 100 mg PO BID [facility] Last Admin: 06/01/18 09:40 Dose: 100 mg - Objective Vital Signs: Vital Signs Temperature 97.9 F 06/01/18 06:00 Pulse Rate 60 06/01/18 06:00 Respiratory Rate 18 06/01/18 06:00 Blood Pressure 107/60 06/01/18 06:00 O2 Sat by Pulse Oximetry (%) 94 L 05/31/18 21:00 Constitutional: Yes: No Distress, Calm Neck: Yes: Supple Cardiovascular: Yes: Pulse Irregular Respiratory: Yes: Regular, Diminished Gastrointestinal: Yes: Soft, Hypoactive Bowel Sounds Edema: Yes Edema: LLE: 1+, RLE: 1+ Labs: CBC, BMP 06/01/18 05:30 06/01/18 05:30 INR, PTT INR 1.42 (0.83-1.09) H 05/19/18 15:35 - ....Imaging EKG: Report Reviewed (Tele: NSR) Problem List - Problems (1) Afib Code(s): I48.91 - UNSPECIFIED ATRIAL FIBRILLATION Qualifiers: Atrial fibrillation type: persistent Qualified Code(s): I48.1 - Persistent atrial fibrillation (2) Anasarca Code(s): R60.1 - GENERALIZED EDEMA (3) Ascites Code(s): R18.8 - OTHER ASCITES Qualifiers: Ascites type: other type Qualified Code(s): R18.8 - Other ascites (4) HTN (hypertension) Code(s): I10 - ESSENTIAL (PRIMARY) HYPERTENSION Qualifiers: Hypertension type: essential hypertension Qualified Code(s): I10 - Essential (primary) hypertension (5) Heart failure, systolic, with acute decompensation Code(s): I50.23 - ACUTE ON CHRONIC SYSTOLIC (CONGESTIVE) HEART FAILURE (6) Hypercholesteremia Code(s): E78.00 - PURE HYPERCHOLESTEROLEMIA, UNSPECIFIED (7) Morbid obesity with BMI of 40.0-44.9, adult Code(s): E66.01 - MORBID (SEVERE) OBESITY DUE TO EXCESS CALORIES; Z68.41 - BODY MASS INDEX (BMI) 40.0-44.9, ADULT (8) T2DM (type 2 diabetes mellitus) Code(s): E11.9 - TYPE 2 DIABETES MELLITUS WITHOUT COMPLICATIONS Qualifiers: Diabetes mellitus halfway insulin use: without superintendent container terminal use Diabetes mellitus complication status: with unspecified complications Qualified Code(s) : E11.8 - Type 2 diabetes mellitus with unspecified complications Assessment/Plan 05/22/2018 Echo: Mod LAE, mod-severe RV fxn, mod TR, severe decreased LV fxn LVEF 15-20%, mod cLVH 09/30/2017 R&LHc at [facility]: Minor nonobstructive CAD, severe LV dysfunction, mod MR , severely elevated LVEDP and pulmonary pressures, low cardiac output, LVEF 20% 1. Acute hypoxic respiratory failure related to, 2. Acute on chronic class II NYHA classification LV failure related to systolic/ diastolic LV dysfunction, resolving 3. CAD non-obstructive disease angina pectoris 4. Atrial fibrillation with periods of RVR on DOAC's- held for paracentesis/to be resumed post paracentesis completion 5. HTN/hypertensive cardiomyopathy 6. DM 7. Hypercholesterolemia 8. Pleural effusion/Ascites- post paracentesis, related to above 9. Exogenous obesity PLAN: 1. Decrease Lasix 40 IV bid and Aldactone 100 bid with close monitoring of renal function, diuretic response and electrolytes 2. Continue Coreg 25 bid 3. Continue Lisinopril 20 qd dose titration as needed with close monitoring of renal function, and as outlined eventually outpatient initiation of Entresto/as per guidelines 4. Continue Lipitor 20 qhs 5. Resumed Xarelto 20 qd post therapeutic paracentesis 6. As outlined ideally would recommend FIRST LEVELER-D implant provided patient demonstrate compliance with medical therapy administration and F/U, outpatient F /U
--- NOTE | 2018-06-01 10:52 | PN ---
Progress Note (short form) - Note Progress Note: c/o leg pain that worsens at night. assoc with multiple wounds. denies Cp, SOB, fever, chills, N/V/C/D Current Medications Generic Name Dose Route Start Last Admin Trade Name Freq PRN Reason Stop Dose Admin Acetaminophen 650 mg 05/25/18 19:36 06/01/18 10:39 Tylenol - PO 650 mg Q6H PRN Administration PAIN Albuterol Sulfate 2 puff 05/22/18 11:48 Ventolin Hfa Inhaler - IH Q4H PRN SHORT OF BREATH/WHEEZING Atorvastatin Calcium 20 mg 05/21/18 22:00 05/31/18 22:01 Lipitor - PO 20 mg HS [facility] Administration Bacitracin 1 applic 05/23/18 15:45 06/01/18 09:42 Bacitracin - TP 1 applic DAILY [facility] Administration Budesonide/Formoterol Fumarate 2 puff 05/19/18 22:00 06/01/18 09:40 Symbicort 160/4.5mcg - IH 2 puff BID [facility] Administration Carvedilol 25 mg 05/29/18 10:00 06/01/18 09:39 Coreg - PO 25 mg BID [facility] Administration Furosemide 40 mg 06/01/18 14:00 Lasix Injection - IVPUSH BIDLASIX [facility] Gabapentin 100 mg 05/28/18 10:00 06/01/18 09:39 Neurontin - PO 100 mg BID [facility] Administration Insulin Aspart 1 vial 05/30/18 16:30 06/01/18 06:25 Novolog Vial Sliding Scale - SQ Not Given ACHS [facility] Protocol Lisinopril 20 mg 05/24/18 13:27 06/01/18 09:39 Prinivil PO 20 mg DAILY [facility] Administration Magnesium Oxide 400 mg 05/25/18 22:00 06/01/18 09:39 Mag-Ox - PO 400 mg BID [facility] Administration Pantoprazole Sodium 40 mg 05/30/18 10:00 06/01/18 09:40 Protonix - PO 40 mg DAILY [facility] Administration Rivaroxaban 20 mg 05/31/18 18:15 05/31/18 18:21 Xarelto - PO 20 mg DAILY@1800 [facility] Administration Spironolactone 100 mg 05/30/18 22:00 06/01/18 09:40 Aldactone - PO 100 mg BID [facility] Administration Last Vital Signs Temp Pulse Resp BP Pulse Ox 97.9 F 60 18 107/60 94 L 06/01/18 06:00 06/01/18 06:00 06/01/18 06:00 06/01/18 06:00 05/31/18 21:00 Intake & Output 05/29/18 05/30/18 05/31/18 06/01/18 23:59 23:59 23:59 23:59 Intake Total 810 074 4939 540 Output Total 0720 469 1277 1475 Balance -920 235 105 -935 Weight 282 lb 6.4 oz 283 lb 1.6 oz 283 lb 6.4 oz 283 lb General NAD CV S1 S2 RRR no murmur/rub/gallop Lungs decreased B/L bases Abdomen soft NT/ND obese Extremities 3+ pitting edema B/L LE CBCD WBC 6.1 K/mm3 (4.0-10.0) 06/01/18 05:30 RBC 3.75 M/mm3 (4.00-5.60) L 06/01/18 05:30 Hgb 10.1 GM/dL (11.7-16.9) L 06/01/18 05:30 Hct 30.8 % (35.4-49) L 06/01/18 05:30 MCV 82.1 fl (80-96) 06/01/18 05:30 MCHC 32.7 g/dl (32.0-35.9) 06/01/18 05:30 RDW 19.5 % (11.9-15.9) H 06/01/18 05:30 Plt Count 151 K/MM3 (134-434) D 06/01/18 05:30 MPV 10.9 fl (7.5-11.1) 06/01/18 05:30 CMP Sodium 138 mmol/L (136-145) 06/01/18 05:30 Potassium 4.1 mmol/L (3.5-5.1) 06/01/18 05:30 Chloride 103 mmol/L (98-107) 06/01/18 05:30 Carbon Dioxide 31 mmol/L (21-32) 06/01/18 05:30 Anion Gap 4 MMOL/L (8-16) L 06/01/18 05:30 BUN 21 mg/dL (7-18) H 06/01/18 05:30 Creatinine 1.2 mg/dL (0.55-1.3) 06/01/18 05:30 Creat Clearance w eGFR 61.35 (>60) 06/01/18 05:30 Calcium 8.1 mg/dL (8.5-10.1) L 06/01/18 05:30 Total Bilirubin 0.8 mg/dL (0.2-1) 06/01/18 05:30 AST 26 U/L (15-37) 06/01/18 05:30 ALT 23 U/L (13-61) 06/01/18 05:30 Alkaline Phosphatase 139 U/L (45-117) H 06/01/18 05:30 Total Protein 6.0 g/dl (6.4-8.2) L 06/01/18 05:30 Albumin 2.4 g/dl (3.4-5.0) L 06/01/18 05:30 A/P 62yo M with unknown PMH presenting with progressively worsening shortness of breath with generalized fatigue 1. acute systolic CHF- has been on high doses of lasix and aldactone with no changes in weight. lasix now reduced to BID. has received 2 paracentesis for therapeutic relief. awaiting on stuides. optimize heart failure therapy as tolerated. will need TRANSPORT DRIVER-D once compliance is demonstrated. cardio on board. strict I&O, monitor electrolytes, daily weights. 2. leg pain- appears to be neuropathic pain as worse at night vs due to edema. will increase gabapentin to 200mg BID 3 afib with RVR-rate controlled. cont pradaxa. 4. DM- A1c 6.3. requiring minimal amount of sliding scale insulin. can likely d/ c on oral hypoglycemics when medically optimized. 5. COPD- no signs of acute exacerbation. cont inhalers 6. CAD-will d/w cardio if should re-start asa as was held for procedure. cardio on board. 7. HTN- controlled on current regimen. 8. DVT ppx- xarelto 9.PT eval Visit type - Emergency Visit Emergency Visit: Yes ED Registration Date: 05/19/18 Care time: The patient presented to the Emergency Department on the above date and was hospitalized for further evaluation of their emergent condition. - New Patient This patient is new to me today: No - Critical Care Critical Care patient: No - Discharge Referral Referred to [facility] Med P.C.: No
[2018-06-01] MEDS ORDERED: PT OWN MED DRAWER 7, Y5N ONE (17:41)
[2018-06-01] MEDS: RIVAROXABAN 20 MG TABLET PO SCH (18:31)
[2018-06-01] MEDS: ATORVASTATIN CA 20 MG TABLET (FP) PO SCH (21:08)
[2018-06-02] MEDS: FUROSEMIDE 40 MG/4 ML INJECTABLE VIAL IVPUSH SCH (06:13)
[2018-06-02] MEDS: INSULIN SLIDING SCALE (NOVOLOG) 1 VIAL SQ SCH ×4 (06:18→22:07)
[2018-06-02] MEDS: ACETAMINOPHEN 325 MG TABLET (FP) PO PRN ×3 (06:51→22:01)
[2018-06-02 07:15] LABS: ANION GAP 5 MMOL/L (8-16); BLOOD UREA NITROGEN 24 mg/dL (7-18); CALCIUM 8.3 mg/dL (8.5-10.1); CHLORIDE 101 mmol/L (98-107); CO2 31 mmol/L (21-32); CREATININE 1.2 mg/dL (0.55-1.3); GLUCOSE,RANDOM 156 mg/dL (74-106); MAGNESIUM 2.1 mg/dL (1.8-2.4); POTASSIUM 4.5 mmol/L (3.5-5.1); SODIUM 137 mmol/L (136-145)
--- NOTE | 2018-06-02 09:31 | PN ---
Progress Note, Physician History of Present Illness: TOMLINSON, and distension and LE edema improving with diuresis and paracentesis, denies orthopnea. - Current Medication List Current Medications: Active Medications Acetaminophen (Tylenol -) 650 mg PO Q6H PRN PRN Reason: PAIN Last Admin: 06/02/18 06:51 Dose: 650 mg Albuterol Sulfate (Ventolin Hfa Inhaler -) 2 puff IH Q4H PRN PRN Reason: SHORT OF BREATH/WHEEZING Atorvastatin Calcium (Lipitor -) 20 mg PO HS [facility] Last Admin: 06/01/18 21:08 Dose: 20 mg Bacitracin (Bacitracin -) 1 applic TP DAILY [facility] Last Admin: 06/01/18 09:42 Dose: 1 applic Budesonide/Formoterol Fumarate (Symbicort 160/4.5mcg -) 2 puff IH BID [facility] Last Admin: 06/01/18 21:09 Dose: 2 puff Carvedilol (Coreg -) 25 mg PO BID [facility] Last Admin: 06/01/18 21:08 Dose: 25 mg Furosemide (Lasix Injection -) 40 mg IVPUSH BIDLASIX [facility] Last Admin: 06/02/18 06:13 Dose: 40 mg Gabapentin (Neurontin -) 200 mg PO BID [facility] Last Admin: 06/01/18 21:08 Dose: 200 mg Insulin Aspart (Novolog Vial Sliding Scale -) 1 vial SQ ACHS [facility]; Protocol Last Admin: 06/02/18 06:18 Dose: Not Given Lisinopril (Prinivil) 20 mg PO DAILY [facility] Last Admin: 06/01/18 09:39 Dose: 20 mg Magnesium Oxide (Mag-Ox -) 400 mg PO BID [facility] Last Admin: 06/01/18 21:08 Dose: 400 mg Pantoprazole Sodium (Protonix -) 40 mg PO DAILY [facility] Last Admin: 06/01/18 09:40 Dose: 40 mg Rivaroxaban (Xarelto -) 20 mg PO DAILY@1800 [facility] Last Admin: 06/01/18 18:31 Dose: 20 mg Spironolactone (Aldactone -) 100 mg PO BID [facility] Last Admin: 06/01/18 21:08 Dose: 100 mg - Objective Vital Signs: Vital Signs Temperature 98.8 F 06/02/18 05:39 Pulse Rate 79 06/02/18 05:39 Respiratory Rate 20 06/02/18 05:39 Blood Pressure 117/54 L 06/02/18 05:39 O2 Sat by Pulse Oximetry (%) 94 L 05/31/18 21:00 Constitutional: Yes: No Distress, Calm Neck: Yes: Supple Cardiovascular: Yes: Pulse Irregular Respiratory: Yes: Regular, Diminished Gastrointestinal: Yes: Soft, Hypoactive Bowel Sounds Edema: Yes Edema: LLE: Trace, RLE: Trace Labs: CBC, BMP 06/01/18 05:30 06/02/18 05:30 INR, PTT INR 1.42 (0.83-1.09) H 05/19/18 15:35 Problem List - Problems (1) Afib Code(s): I48.91 - UNSPECIFIED ATRIAL FIBRILLATION Qualifiers: Atrial fibrillation type: persistent Qualified Code(s): I48.1 - Persistent atrial fibrillation (2) Anasarca Code(s): R60.1 - GENERALIZED EDEMA (3) Ascites Code(s): R18.8 - OTHER ASCITES Qualifiers: Ascites type: other type Qualified Code(s): R18.8 - Other ascites (4) HTN (hypertension) Code(s): I10 - ESSENTIAL (PRIMARY) HYPERTENSION Qualifiers: Hypertension type: essential hypertension Qualified Code(s): I10 - Essential (primary) hypertension (5) Heart failure, systolic, with acute decompensation Code(s): I50.23 - ACUTE ON CHRONIC SYSTOLIC (CONGESTIVE) HEART FAILURE (6) Hypercholesteremia Code(s): E78.00 - PURE HYPERCHOLESTEROLEMIA, UNSPECIFIED (7) Morbid obesity with BMI of 40.0-44.9, adult Code(s): E66.01 - MORBID (SEVERE) OBESITY DUE TO EXCESS CALORIES; Z68.41 - BODY MASS INDEX (BMI) 40.0-44.9, ADULT (8) T2DM (type 2 diabetes mellitus) Code(s): E11.9 - TYPE 2 DIABETES MELLITUS WITHOUT COMPLICATIONS Qualifiers: Diabetes mellitus computer terminal operator insulin use: without computer terminal operator use Diabetes mellitus complication status: with unspecified complications Qualified Code(s) : E11.8 - Type 2 diabetes mellitus with unspecified complications Assessment/Plan 05/22/2018 Echo: Mod LAE, mod-severe RV fxn, mod TR, severe decreased LV fxn LVEF 15-20%, mod cLVH 09/30/2017 R&LHc at [facility]: Minor nonobstructive CAD, severe LV dysfunction, mod MR , severely elevated LVEDP and pulmonary pressures, low cardiac output, LVEF 20% 1. Acute hypoxic respiratory failure related to, 2. Acute on chronic class II NYHA classification LV failure related to systolic/ diastolic LV dysfunction, resolving 3. CAD non-obstructive disease angina pectoris 4. Atrial fibrillation with periods of RVR on DOAC's- held for paracentesis/to be resumed post paracentesis completion 5. HTN/hypertensive cardiomyopathy 6. DM 7. Hypercholesterolemia 8. Pleural effusion/Ascites- post paracentesis, related to above 9. Exogenous obesity PLAN: 1. Oral Lasix 40 po bid and Aldactone 100 bid with close monitoring of renal function, diuretic response and electrolytes 2. Continue Coreg 25 bid 3. Continue Lisinopril 20 qd dose titration as needed with close monitoring of renal function, and as outlined eventually outpatient initiation of Entresto/as per guidelines 4. Continue Lipitor 20 qhs 5. Continue Xarelto 20 qd post therapeutic paracentesis, no ASA 6. As outlined ideally would recommend PLASTICS BENCH MECHANIC-D implant provided patient demonstrate compliance with medical therapy administration and F/U, outpatient F /U
[2018-06-02] MEDS: LISINOPRIL 10 MG TABLET (FP) PO SCH (09:36)
[2018-06-02] MEDS: CARVEDILOL 12.5 MG TABLET (FP) PO SCH ×2 (09:37→22:00)
[2018-06-02] MEDS: GABAPENTIN 100 MG CAPSULE (FP) PO SCH ×2 (09:38→22:01)
[2018-06-02] MEDS: SPIRONOLACTONE 25 MG TABLET (FP) PO SCH ×2 (09:38→22:00)
[2018-06-02] MEDS: BACITRACIN 15 GM TUBE TOPICAL OINTMENT TP SCH (09:39)
[2018-06-02] MEDS: MAGNESIUM OXIDE 400 MG TABLET (FP) PO SCH ×2 (09:39→22:01)
[2018-06-02] MEDS: PANTOPRAZOLE 40 MG TABLET (FP) PO SCH (09:44)
[2018-06-02] MEDS: BUDESONIDE/FORMETEROL FUMARATE 160/4.5 mcg INHALER IH SCH ×2 (10:55→22:07)
--- NOTE | 2018-06-02 12:10 | CONSULT ---
Consult Consult Specialty:: Podiatry Reason for Consultation:: Painful right foot heel. Painful elongated thickened toe nails in shoe gear and ambulation. Loose left big toe nail. - History of Present Illness Chief Complaint: Painful right foot heel. Painful elongated thickened toe nails in shoe gear and ambulation. Loose left big toe nail. History of Present Illness: Patient cuts his own toe nails poorly at best. Painful right heel for a few days. - History Source History Provided By: Patient - Past Medical History Cardio/Vascular: Yes: AFIB, CHF, HTN, Hyperlipdemia Pulmonary: Yes: COPD Endocrine: Yes: Diabetes Mellitus - Alcohol/Substance Use Hx Alcohol Use: Yes - Smoking History Smoking history: Former smoker Have you smoked in the past 12 months: No Home Medications - Allergies Allergies/Adverse Reactions: Allergies Allergy/AdvReac Type Severity Reaction Status Date / Time No Known Allergies Allergy Unverified 05/19/18 15:10 - Home Medications Home Medications: Ambulatory Orders Aspirin [ASA -] 81 mg PO DAILY 05/19/18 Budesonide/Formeterol Fumarate [SYMBICORT 160/4.5mcg -] 1 inh PO BID 05/19/18 Enalapril Maleate [Vasotec] 20 mg PO DAILY 05/19/18 Furosemide [Lasix] 40 mg PO BID 05/19/18 Insulin Detemir [Levemir Flextouch] 10 units SQ HS 05/19/18 Metoprolol Succinate 50 mg PO BID 05/19/18 Rivaroxaban [Xarelto] 15 mg PO DAILY 05/19/18 Spironolactone 25 mg PO DAILY 05/19/18 Physical Exam Vital Signs: Vital Signs Temperature 98.8 F 06/02/18 05:39 Pulse Rate 79 06/02/18 05:39 Respiratory Rate 20 06/02/18 05:39 Blood Pressure 117/54 L 06/02/18 05:39 O2 Sat by Pulse Oximetry (%) 94 L 05/31/18 21:00 Extremities: Yes: Other (non palpable pulses b/l feet, +open wounds b/l legs, + pain at insertion of plantar fascia to right heel, onycholysis left big toe, + tender dystrophic nails with subungual debris x 9, +xerosis) Labs: CBC, BMP 06/01/18 05:30 04/26/19 05:30 Assessment/Plan onycholysis onychomycosis xerosis plantar fasciitis? heel spur? recommend xray debride nails x 10 under aseptic technique discussed diabetic foot care patient would benefit from vascular evaluation anti mycotic topical to all 10 toes recommended. will follow till dc
[2018-06-02] MEDS ORDERED: AMMONIUM LACTATE 12% LOTION 225 GM BOTTLE TP PRN (12:24)
--- NOTE | 2018-06-02 13:28 | PN ---
Progress Note (short form) - Note Progress Note: c/o his hallux nail came up earlier today, causing pain. leg pain improved. denies Cp, SOB, fever, chills, N/V/C/D Current Medications Generic Name Dose Route Start Last Admin Trade Name Freq PRN Reason Stop Dose Admin Acetaminophen 650 mg 05/25/18 19:36 06/02/18 06:51 Tylenol - PO 650 mg Q6H PRN Administration PAIN Albuterol Sulfate 2 puff 05/22/18 11:48 Ventolin Hfa Inhaler - IH Q4H PRN SHORT OF BREATH/WHEEZING Atorvastatin Calcium 20 mg 05/21/18 22:00 06/01/18 21:08 Lipitor - PO 20 mg HS [facility] Administration Bacitracin 1 applic 05/23/18 15:45 06/02/18 09:39 Bacitracin - TP 1 applic DAILY [facility] Administration Budesonide/Formoterol Fumarate 2 puff 05/19/18 22:00 06/02/18 10:55 Symbicort 160/4.5mcg - IH 2 puff BID [facility] Administration Carvedilol 25 mg 05/29/18 10:00 06/02/18 09:37 Coreg - PO 25 mg BID [facility] Administration Furosemide 40 mg 06/03/18 06:00 Lasix - PO BID@0600,1400 [facility] Gabapentin 200 mg 06/01/18 11:36 06/02/18 09:38 Neurontin - PO 200 mg BID [facility] Administration Insulin Aspart 1 vial 05/30/18 16:30 06/02/18 12:00 Novolog Vial Sliding Scale - SQ Not Given ACHS [facility] Protocol Lactic Acid 1 applic 06/02/18 12:24 Lac-Hydrin 12 TP DAILY PRN xerosis Lisinopril 20 mg 05/24/18 13:27 06/02/18 09:36 Prinivil PO 20 mg DAILY [facility] Administration Magnesium Oxide 400 mg 05/25/18 22:00 06/02/18 09:39 Mag-Ox - PO 400 mg BID [facility] Administration Pantoprazole Sodium 40 mg 05/30/18 10:00 06/02/18 09:44 Protonix - PO 40 mg DAILY [facility] Administration Rivaroxaban 20 mg 05/31/18 18:15 06/01/18 18:31 Xarelto - PO 20 mg DAILY@1800 [facility] Administration Spironolactone 100 mg 05/30/18 22:00 06/02/18 09:38 Aldactone - PO 100 mg BID [facility] Administration Last Vital Signs Temp Pulse Resp BP Pulse Ox 98.8 F 79 20 117/54 L 94 L 06/02/18 05:39 06/02/18 05:39 06/02/18 05:39 06/02/18 05:39 05/31/18 21:00 Intake & Output 05/30/18 05/31/18 06/01/18 06/02/18 23:59 23:59 23:59 23:59 Intake Total 960 1730 1130 50 Output Total 725 1625 2955 300 Balance 235 105 -1825 -250 Weight 283 lb 1.6 oz 283 lb 6.4 oz 283 lb 265 lb 9.6 oz General NAD CV S1 S2 RRR no murmur/rub/gallop Lungs decreased B/L bases Abdomen soft NT/ND obese Extremities 3+ pitting edema B/L LE L foot hallux with nail lifted to mid nail, onchomytic changes to all the nails CBCD WBC 6.1 K/mm3 (4.0-10.0) 06/01/18 05:30 RBC 3.75 M/mm3 (4.00-5.60) L 06/01/18 05:30 Hgb 10.1 GM/dL (11.7-16.9) L 06/01/18 05:30 Hct 30.8 % (35.4-49) L 06/01/18 05:30 MCV 82.1 fl (80-96) 06/01/18 05:30 MCHC 32.7 g/dl (32.0-35.9) 06/01/18 05:30 RDW 19.5 % (11.9-15.9) H 06/01/18 05:30 Plt Count 151 K/MM3 (134-434) D 06/01/18 05:30 MPV 10.9 fl (7.5-11.1) 06/01/18 05:30 CMP Sodium 138 mmol/L (136-145) 06/01/18 05:30 Potassium 4.1 mmol/L (3.5-5.1) 06/01/18 05:30 Chloride 103 mmol/L (98-107) 06/01/18 05:30 Carbon Dioxide 31 mmol/L (21-32) 06/01/18 05:30 Anion Gap 4 MMOL/L (8-16) L 06/01/18 05:30 BUN 21 mg/dL (7-18) H 06/01/18 05:30 Creatinine 1.2 mg/dL (0.55-1.3) 06/01/18 05:30 Creat Clearance w eGFR 61.35 (>60) 06/01/18 05:30 Calcium 8.1 mg/dL (8.5-10.1) L 06/01/18 05:30 Total Bilirubin 0.8 mg/dL (0.2-1) 06/01/18 05:30 AST 26 U/L (15-37) 06/01/18 05:30 ALT 23 U/L (13-61) 06/01/18 05:30 Alkaline Phosphatase 139 U/L (45-117) H 06/01/18 05:30 Total Protein 6.0 g/dl (6.4-8.2) L 06/01/18 05:30 Albumin 2.4 g/dl (3.4-5.0) L 06/01/18 05:30 A/P 62yo M with unknown PMH presenting with progressively worsening shortness of breath with generalized fatigue 1. acute systolic CHF- improved. doubt weight is accurate as clinical picture did not change that drastically. lasix been switched to po. optimize heart failure therapy as tolerated. will need SILK FINISHER-D once compliance is demonstrated. cardio on board. strict I&O, monitor electrolytes, daily weights. 2. leg pain- appears to be neuropathic pain as worse at night vs due to edema. continue incrased dose of gabapentin 3 afib with RVR-rate controlled. cont pradaxa. 4. DM- A1c 6.3. requiring minimal amount of sliding scale insulin. can likely d/ c on oral hypoglycemics on discharge 5. COPD- no signs of acute exacerbation. cont inhalers 6. hallux nail avulsion- podiatry consult 7. HTN- controlled on current regimen. 8. DVT ppx- xarelto 9.able to only ambulate short distances, 5 feet, at a time. would benefit from HUNTER. DIANE sent Visit type - Emergency Visit Emergency Visit: Yes ED Registration Date: 05/19/18 Care time: The patient presented to the Emergency Department on the above date and was hospitalized for further evaluation of their emergent condition. - New Patient This patient is new to me today: No - Critical Care Critical Care patient: No - Discharge Referral Referred to [facility] Med P.C.: No
[2018-06-02] MEDS: RIVAROXABAN 20 MG TABLET PO SCH (18:18)
[2018-06-02] MEDS: ATORVASTATIN CA 20 MG TABLET (FP) PO SCH (22:01)
[2018-06-03] MEDS ORDERED: FUROSEMIDE 40 MG TABLET (FP) PO SCH (06:00)
[2018-06-03] MEDS: ACETAMINOPHEN 325 MG TABLET (FP) PO PRN ×3 (06:56→21:08)
[2018-06-03] MEDS: INSULIN SLIDING SCALE (NOVOLOG) 1 VIAL SQ SCH ×4 (06:56→21:47)
--- NOTE | 2018-06-03 08:43 | PN ---
Progress Note (short form) - Note Progress Note: fuv right heel. +tender at insertion of fascia, +heel spur on xray plantar fasciitis pvd Would benefit from injection therapy, diabetic shoes with custom insoles. will follow.
--- NOTE | 2018-06-03 10:01 | PN ---
Physical Exam: SUBJECTIVE: Patient seen and examined He is better and breathing is better , his x rays of feet no osteomylitis OBJECTIVE: Vital Signs Period Temp Pulse Resp BP Sys/Rosado Pulse Ox Last 24 Hr 97.7 F-98.7 F 81-85 16-18 112-139/64-77 97 GENERAL: The patient is awake, alert, and fully oriented, in no acute distress. HEAD: Normal with no signs of trauma. EYES: PERRL, extraocular movements intact, sclera anicteric, conjunctiva clear. No ptosis. ENT: Ears normal, nares patent, oropharynx clear without exudates, moist mucous membranes. NECK: Trachea midline, full range of motion, supple. LUNGS: Breath sounds equal, clear to auscultation bilaterally, no wheezes, no crackles, no accessory muscle use. HEART: irregular rhythm, S1, S2 without murmur, ABDOMEN: Soft, nontender, nondistended, normoactive bowel sounds, no guarding, no rebound, no hepatosplenomegaly, no masses. EXTREMITIES: He has ch nail changes and has poor periheral pulses and ch skin wound on both legs and they are clean. NEUROLOGICAL: Cranial nerves II through XII grossly intact. Normal speech, gait not observed. Laboratory Results - last 24 hr 06/02/18 06/02/18 06/02/18 11:36 17:01 21:59 PTT (Actin FS) POC Glucometer 191 236 139 06/03/18 06/03/18 06:16 06:20 PTT (Actin FS) 36.6 H POC Glucometer 157 Active Medications Generic Name Dose Route Start Last Admin Trade Name Freq PRN Reason Stop Dose Admin Acetaminophen 650 mg 05/25/18 19:36 06/03/18 06:56 Tylenol - PO 650 mg Q6H PRN Administration PAIN Albuterol Sulfate 2 puff 05/22/18 11:48 Ventolin Hfa Inhaler - IH Q4H PRN SHORT OF BREATH/WHEEZING Atorvastatin Calcium 20 mg 05/21/18 22:00 06/02/18 22:01 Lipitor - PO 20 mg HS SOWMYA Administration Bacitracin 1 applic 05/23/18 15:45 06/02/18 09:39 Bacitracin - TP 1 applic DAILY SOWMYA Administration Budesonide/Formoterol Fumarate 2 puff 05/19/18 22:00 06/02/18 22:07 Symbicort 160/4.5mcg - IH 2 puff BID SOWMYA Administration Carvedilol 25 mg 05/29/18 10:00 06/02/18 22:00 Coreg - PO 25 mg BID SOWMYA Administration Furosemide 40 mg 06/03/18 06:00 06/03/18 06:56 Lasix - PO 40 mg BID@0600,1400 SOWMYA Administration Gabapentin 200 mg 06/01/18 11:36 06/02/18 22:01 Neurontin - PO 200 mg BID SOWMYA Administration Insulin Aspart 1 vial 05/30/18 16:30 06/03/18 06:56 Novolog Vial Sliding Scale - SQ Not Given ACHS [facility] Protocol Lactic Acid 1 applic 06/02/18 12:24 Lac-Hydrin 12 TP DAILY PRN xerosis Lisinopril 20 mg 05/24/18 13:27 06/02/18 09:36 Prinivil PO 20 mg DAILY SOWMYA Administration Magnesium Oxide 400 mg 05/25/18 22:00 06/02/18 22:01 Mag-Ox - PO 400 mg BID SOWMYA Administration Pantoprazole Sodium 40 mg 05/30/18 10:00 06/02/18 09:44 Protonix - PO 40 mg DAILY SOWMYA Administration Rivaroxaban 20 mg 05/31/18 18:15 06/02/18 18:18 Xarelto - PO 20 mg DAILY@1800 SOWMYA Administration Spironolactone 100 mg 05/30/18 22:00 06/02/18 22:00 Aldactone - PO 100 mg BID SOWMYA Administration CBC, BMP 06/01/18 05:30 06/02/18 05:30 ASSESSMENT/PLAN: 62yo M with unknown PMH presenting with progressively worsening shortness of breath with generalized fatigue 1. acute systolic CHF-. lasix been switched to po. optimize heart failure therapy as tolerated. cardio on board. strict I&O, monitor electrolytes, daily weights. 2. leg pain- appears to be neuropathic pain as worse at night vs due to edema. continue gabapentin 3 afib with RVR-rate controlled. cont pradaxa. 4. DM- A1c 6.3.stable 5. COPD- no signs of acute exacerbation. cont inhalers 6. hallux nail avulsion- podiatry consult 7. HTN- controlled on current regimen. 8. DVT ppx- xarelto 9.able to only ambulate short distances, 5 feet, at a time. He is going to need rehab and case manageres has already sent the paper to [facility] Visit type - Emergency Visit Emergency Visit: Yes ED Registration Date: 05/19/18 Care time: The patient presented to the Emergency Department on the above date and was hospitalized for further evaluation of their emergent condition. - New Patient This patient is new to me today: Yes Date on this admission: 06/03/18 - Critical Care Critical Care patient: No - Discharge Referral Referred to [facility] Med P.C.: No
[2018-06-03] MEDS: GABAPENTIN 100 MG CAPSULE (FP) PO SCH ×2 (10:03→21:01)
[2018-06-03] MEDS: PANTOPRAZOLE 40 MG TABLET (FP) PO SCH (10:04)
[2018-06-03] MEDS: MAGNESIUM OXIDE 400 MG TABLET (FP) PO SCH ×2 (10:04→21:00)
[2018-06-03] MEDS: SPIRONOLACTONE 25 MG TABLET (FP) PO SCH ×2 (10:04→21:00)
[2018-06-03] MEDS: CARVEDILOL 12.5 MG TABLET (FP) PO SCH ×2 (10:05→21:00)
[2018-06-03] MEDS: LISINOPRIL 10 MG TABLET (FP) PO SCH (10:05)
[2018-06-03] MEDS: BUDESONIDE/FORMETEROL FUMARATE 160/4.5 mcg INHALER IH SCH ×2 (10:06→23:48)
--- NOTE | 2018-06-03 10:06 | PN ---
Progress Note, Physician History of Present Illness: TOMLINSON, and distension and LE edema improving with diuresis and paracentesis, denies orthopnea. c/o right heel pain, Xrays unrevealing. - Current Medication List Current Medications: Active Medications Acetaminophen (Tylenol -) 650 mg PO Q6H PRN PRN Reason: PAIN Last Admin: 06/03/18 06:56 Dose: 650 mg Albuterol Sulfate (Ventolin Hfa Inhaler -) 2 puff IH Q4H PRN PRN Reason: SHORT OF BREATH/WHEEZING Atorvastatin Calcium (Lipitor -) 20 mg PO HS [facility] Last Admin: 06/02/18 22:01 Dose: 20 mg Bacitracin (Bacitracin -) 1 applic TP DAILY [facility] Last Admin: 06/02/18 09:39 Dose: 1 applic Budesonide/Formoterol Fumarate (Symbicort 160/4.5mcg -) 2 puff IH BID [facility] Last Admin: 06/02/18 22:07 Dose: 2 puff Carvedilol (Coreg -) 25 mg PO BID [facility] Last Admin: 06/02/18 22:00 Dose: 25 mg Furosemide (Lasix -) 40 mg PO BID@0600,1400 [facility] Last Admin: 06/03/18 06:56 Dose: 40 mg Gabapentin (Neurontin -) 200 mg PO BID [facility] Last Admin: 06/02/18 22:01 Dose: 200 mg Insulin Aspart (Novolog Vial Sliding Scale -) 1 vial SQ ACHS [facility]; Protocol Last Admin: 06/03/18 06:56 Dose: Not Given Lactic Acid (Lac-Hydrin 12) 1 applic TP DAILY PRN PRN Reason: xerosis Lisinopril (Prinivil) 20 mg PO DAILY [facility] Last Admin: 06/02/18 09:36 Dose: 20 mg Magnesium Oxide (Mag-Ox -) 400 mg PO BID [facility] Last Admin: 06/02/18 22:01 Dose: 400 mg Pantoprazole Sodium (Protonix -) 40 mg PO DAILY [facility] Last Admin: 06/02/18 09:44 Dose: 40 mg Rivaroxaban (Xarelto -) 20 mg PO DAILY@1800 [facility] Last Admin: 06/02/18 18:18 Dose: 20 mg Spironolactone (Aldactone -) 100 mg PO BID [facility] Last Admin: 06/02/18 22:00 Dose: 100 mg - Objective Vital Signs: Vital Signs Temperature 97.8 F 06/03/18 06:00 Pulse Rate 85 06/03/18 06:00 Respiratory Rate 18 06/03/18 06:00 Blood Pressure 139/77 06/03/18 06:00 O2 Sat by Pulse Oximetry (%) 97 06/02/18 21:00 Constitutional: Yes: No Distress, Calm Neck: Yes: Supple Cardiovascular: Yes: Regular Rate and Rhythm Respiratory: Yes: Regular, Diminished Gastrointestinal: Yes: Normal Bowel Sounds, Soft Edema: Yes Edema: LLE: Trace, RLE: Trace Integumentary: Yes: Venous Stasis Changes Labs: CBC, BMP 06/01/18 05:30 06/02/18 05:30 INR, PTT INR 1.42 (0.83-1.09) H 05/19/18 15:35 Problem List - Problems (1) Afib Code(s): I48.91 - UNSPECIFIED ATRIAL FIBRILLATION Qualifiers: Atrial fibrillation type: persistent Qualified Code(s): I48.1 - Persistent atrial fibrillation (2) Anasarca Code(s): R60.1 - GENERALIZED EDEMA (3) Ascites Code(s): R18.8 - OTHER ASCITES Qualifiers: Ascites type: other type Qualified Code(s): R18.8 - Other ascites (4) HTN (hypertension) Code(s): I10 - ESSENTIAL (PRIMARY) HYPERTENSION Qualifiers: Hypertension type: essential hypertension Qualified Code(s): I10 - Essential (primary) hypertension (5) Heart failure, systolic, with acute decompensation Code(s): I50.23 - ACUTE ON CHRONIC SYSTOLIC (CONGESTIVE) HEART FAILURE (6) Hypercholesteremia Code(s): E78.00 - PURE HYPERCHOLESTEROLEMIA, UNSPECIFIED (7) Morbid obesity with BMI of 40.0-44.9, adult Code(s): E66.01 - MORBID (SEVERE) OBESITY DUE TO EXCESS CALORIES; Z68.41 - BODY MASS INDEX (BMI) 40.0-44.9, ADULT (8) T2DM (type 2 diabetes mellitus) Code(s): E11.9 - TYPE 2 DIABETES MELLITUS WITHOUT COMPLICATIONS Qualifiers: Diabetes mellitus custodial insulin use: without superintendent container terminal use Diabetes mellitus complication status: with unspecified complications Qualified Code(s) : E11.8 - Type 2 diabetes mellitus with unspecified complications Assessment/Plan 05/22/2018 Echo: Mod LAE, mod-severe RV fxn, mod TR, severe decreased LV fxn LVEF 15-20%, mod cLVH 09/30/2017 R&LHc at [facility]: Minor nonobstructive CAD, severe LV dysfunction, mod MR , severely elevated LVEDP and pulmonary pressures, low cardiac output, LVEF 20% 1. Acute hypoxic respiratory failure related to, 2. Acute on chronic class II NYHA classification LV failure related to systolic/ diastolic LV dysfunction, resolving 3. CAD non-obstructive disease angina pectoris 4. Atrial fibrillation with periods of RVR on DOAC's- held for paracentesis/to be resumed post paracentesis completion 5. HTN/hypertensive cardiomyopathy 6. DM 7. Hypercholesterolemia 8. Pleural effusion/Ascites- post paracentesis, related to above 9. Exogenous obesity PLAN: 1. Oral Lasix 40 po bid and Aldactone 100 bid with close monitoring of renal function, diuretic response and electrolytes 2. Continue Coreg 25 bid 3. Continue Lisinopril 20 qd dose titration as needed with close monitoring of renal function, and as outlined eventually outpatient initiation of Entresto/as per guidelines 4. Continue Lipitor 20 qhs 5. Continue Xarelto 20 qd post therapeutic paracentesis, no ASA 6. As outlined ideally would recommend [employer]-D implant provided patient demonstrate compliance with medical therapy administration and F/U, outpatient F /U
[2018-06-03] MEDS ORDERED: ALBUTEROL SO4 8 GM HFA INHALER IH PRN (11:38)
[2018-06-03] MEDS ORDERED: AMMONIUM LACTATE 12% LOTION 225 GM BOTTLE TP PRN (11:38)
[2018-06-03] MEDS: FUROSEMIDE 40 MG TABLET (FP) PO SCH (14:31)
[2018-06-03] MEDS: RIVAROXABAN 20 MG TABLET PO SCH (18:28)
[2018-06-03] MEDS: ATORVASTATIN CA 20 MG TABLET (FP) PO SCH (21:01)
[2018-06-03] MEDS: BACITRACIN 15 GM TUBE TOPICAL OINTMENT TP SCH (23:30)
[2018-06-04] MEDS: BACITRACIN 15 GM TUBE TOPICAL OINTMENT TP SCH ×2 (01:57→14:30)
[2018-06-04] MEDS: FUROSEMIDE 40 MG TABLET (FP) PO SCH ×2 (05:51→14:11)
[2018-06-04] MEDS: INSULIN SLIDING SCALE (NOVOLOG) 1 VIAL SQ SCH ×4 (06:05→21:43)
--- NOTE | 2018-06-04 08:08 | PN ---
Physical Exam: SUBJECTIVE: Patient seen and examined OBJECTIVE: Vital Signs Period Temp Pulse Resp BP Sys/Rosado Pulse Ox Last 24 Hr 97.8 F-98.2 F 69-92 18-20 106-160/51-88 96-97 GENERAL: The patient is awake, alert, and fully oriented, in no acute distress. HEAD: Normal with no signs of trauma. EYES: PERRL, extraocular movements intact, sclera anicteric, conjunctiva clear. No ptosis. ENT: Ears normal, nares patent, oropharynx clear without exudates, moist mucous membranes. NECK: Trachea midline, full range of motion, supple. LUNGS: Breath sounds equal, clear to auscultation bilaterally, no wheezes, no crackles, no accessory muscle use. HEART: irregular rhythm, S1, S2 without murmur, ABDOMEN: Soft, nontender, nondistended, normoactive bowel sounds, no guarding, no rebound, no hepatosplenomegaly, no masses. EXTREMITIES: He has ch nail changes and has poor periheral pulses and ch skin wound on both legs and they are clean. NEUROLOGICAL: Cranial nerves II through XII grossly intact. Normal speech, gait not Laboratory Results - last 24 hr 06/03/18 06/03/18 06/03/18 06:20 12:05 17:26 PTT (Actin FS) 36.6 H POC Glucometer 163 169 06/03/18 06/04/18 21:46 05:45 PTT (Actin FS) POC Glucometer 178 184 Active Medications Generic Name Dose Route Start Last Admin Trade Name Freq PRN Reason Stop Dose Admin Acetaminophen 650 mg 06/03/18 11:38 06/03/18 21:08 Tylenol - PO 650 mg Q6H PRN Administration PAIN Albuterol Sulfate 2 puff 06/03/18 11:38 Ventolin Hfa Inhaler - IH Q4H PRN SHORT OF BREATH/WHEEZING Atorvastatin Calcium 20 mg 06/03/18 22:00 06/03/18 21:01 Lipitor - PO 20 mg HS SOWMYA Administration Bacitracin 1 applic 06/03/18 20:30 06/03/18 23:30 Bacitracin - TP 1 applic DAILY SOWMYA Administration Budesonide/Formoterol Fumarate 2 puff 06/03/18 22:00 06/03/18 23:48 Symbicort 160/4.5mcg - IH 2 puff BID SOWMYA Administration Carvedilol 25 mg 06/03/18 22:00 06/03/18 21:00 Coreg - PO 25 mg BID SOWMYA Administration Furosemide 40 mg 06/03/18 14:00 06/04/18 05:51 Lasix - PO 40 mg BID@0600,1400 SOWMYA Administration Gabapentin 200 mg 06/03/18 22:00 06/03/18 21:01 Neurontin - PO 200 mg BID SOWMYA Administration Insulin Aspart 1 vial 06/03/18 16:30 06/04/18 06:05 Novolog Vial Sliding Scale - SQ Not Given ACHS [facility] Protocol Lactic Acid 1 applic 06/03/18 11:38 Lac-Hydrin 12 TP DAILY PRN xerosis Lisinopril 20 mg 06/04/18 10:00 Prinivil PO DAILY SOWMYA Magnesium Oxide 400 mg 06/03/18 22:00 06/03/18 21:00 Mag-Ox - PO 400 mg BID SOWMYA Administration Pantoprazole Sodium 40 mg 06/04/18 10:00 Protonix - PO DAILY SOWMYA Rivaroxaban 20 mg 06/03/18 18:00 06/03/18 18:28 Xarelto - PO 20 mg DAILY@1800 SOWMYA Administration Spironolactone 100 mg 06/03/18 22:00 06/03/18 21:00 Aldactone - PO 100 mg BID SOWMYA Administration ASSESSMENT/PLAN: 62yo M with unknown PMH presenting with progressively worsening shortness of breath with generalized fatigue 1. acute systolic CHF-. lasix been switched to po. optimize heart failure therapy as tolerated. cardio on board. strict I&O, monitor electrolytes, daily weights. 2. leg pain- appears to be neuropathic pain as worse at night vs due to edema. continue gabapentin 3 afib with RVR-rate controlled. cont pradaxa. 4. DM- A1c 6.3.stable 5. COPD- no signs of acute exacerbation. cont inhalers 6. hallux nail avulsion- podiatry consult 7. HTN- controlled on current regimen. 8. DVT ppx- xarelto 9.able to only ambulate short distances, 5 feet, at a time. He is going to need rehab and case manageres has already sent the paper to [facility] Visit type - Emergency Visit Emergency Visit: Yes ED Registration Date: 05/19/18 Care time: The patient presented to the Emergency Department on the above date and was hospitalized for further evaluation of their emergent condition. - New Patient This patient is new to me today: Yes Date on this admission: 06/30/18 - Critical Care Critical Care patient: No - Discharge Referral Referred to [facility] Med P.C.: No
[2018-06-04] MEDS: GABAPENTIN 100 MG CAPSULE (FP) PO SCH ×2 (10:06→21:16)
[2018-06-04] MEDS: LISINOPRIL 20 MG TABLET (FP) PO SCH (10:07)
[2018-06-04] MEDS: CARVEDILOL 12.5 MG TABLET (FP) PO SCH ×2 (10:07→21:16)
[2018-06-04] MEDS: PANTOPRAZOLE 40 MG TABLET (FP) PO SCH (10:07)
[2018-06-04] MEDS: MAGNESIUM OXIDE 400 MG TABLET (FP) PO SCH ×2 (10:07→21:17)
[2018-06-04] MEDS: SPIRONOLACTONE 25 MG TABLET (FP) PO SCH ×2 (10:08→21:17)
[2018-06-04] MEDS: ACETAMINOPHEN 325 MG TABLET (FP) PO PRN ×2 (10:09→18:21)
[2018-06-04] MEDS: BUDESONIDE/FORMETEROL FUMARATE 160/4.5 mcg INHALER IH SCH ×2 (10:13→21:17)
--- NOTE | 2018-06-04 10:16 | PN ---
Physical Exam: SUBJECTIVE: Patient seen and examined no new change better OBJECTIVE: Vital Signs Period Temp Pulse Resp BP Sys/Rosado Pulse Ox Last 24 Hr 97.8 F-98.2 F 74-92 18-20 106-160/51-88 96 GENERAL: The patient is awake, alert, and fully oriented, in no acute distress. HEAD: Normal with no signs of trauma. EYES: PERRL, extraocular movements intact, sclera anicteric, conjunctiva clear. No ptosis. ENT: Ears normal, nares patent, oropharynx clear without exudates, moist mucous membranes. NECK: Trachea midline, full range of motion, supple. LUNGS: Breath sounds equal, clear to auscultation bilaterally, no wheezes, no crackles, no accessory muscle use. HEART: irregular rhythm, S1, S2 without murmur, ABDOMEN: Soft, nontender, nondistended, normoactive bowel sounds, no guarding, no rebound, no hepatosplenomegaly, no masses. EXTREMITIES: He has ch nail changes and has poor periheral pulses and ch skin wound on both legs and they are clean. NEUROLOGICAL: Cranial nerves II through XII grossly intact. Normal speech, gait not CBC, BMP 06/01/18 05:30 06/02/18 05:30 Active Medications Current Medications Acetaminophen (Tylenol -) 650 mg PO Q6H PRN PRN Reason: PAIN Last Admin: 06/03/18 21:08 Dose: 650 mg Albuterol Sulfate (Ventolin Hfa Inhaler -) 2 puff IH Q4H PRN PRN Reason: SHORT OF BREATH/WHEEZING Atorvastatin Calcium (Lipitor -) 20 mg PO HS [facility] Last Admin: 06/03/18 21:01 Dose: 20 mg Bacitracin (Bacitracin -) 1 applic TP DAILY [facility] Last Admin: 06/03/18 23:30 Dose: 1 applic Budesonide/Formoterol Fumarate (Symbicort 160/4.5mcg -) 2 puff IH BID [facility] Last Admin: 06/03/18 23:48 Dose: 2 puff Carvedilol (Coreg -) 25 mg PO BID [facility] Last Admin: 06/03/18 21:00 Dose: 25 mg Furosemide (Lasix -) 40 mg PO BID@0600,1400 [facility] Last Admin: 06/04/18 05:51 Dose: 40 mg Gabapentin (Neurontin -) 200 mg PO BID [facility] Last Admin: 06/03/18 21:01 Dose: 200 mg Insulin Aspart (Novolog Vial Sliding Scale -) 1 vial SQ ACHS [facility]; Protocol Last Admin: 06/04/18 06:05 Dose: Not Given Lactic Acid (Lac-Hydrin 12) 1 applic TP DAILY PRN PRN Reason: xerosis Lisinopril (Prinivil) 20 mg PO DAILY [facility] Magnesium Oxide (Mag-Ox -) 400 mg PO BID [facility] Last Admin: 06/03/18 21:00 Dose: 400 mg Pantoprazole Sodium (Protonix -) 40 mg PO DAILY [facility] Rivaroxaban (Xarelto -) 20 mg PO DAILY@1800 [facility] Last Admin: 06/03/18 18:28 Dose: 20 mg Spironolactone (Aldactone -) 100 mg PO BID [facility] Last Admin: 06/03/18 21:00 Dose: 100 mg ASSESSMENT/PLAN: 62yo M with unknown PMH presenting with progressively worsening shortness of breath with generalized fatigue 1. acute systolic CHF-. lasix been switched to po. optimize heart failure therapy as tolerated. cardio on board. strict I&O, monitor electrolytes, daily weights. 2. leg pain- appears to be neuropathic pain as worse at night vs due to edema. continue gabapentin 3 afib with RVR-rate controlled. cont pradaxa. 4. DM- A1c 6.3.stable 5. COPD- no signs of acute exacerbation. cont inhalers 6. hallux nail avulsion- podiatry consult 7. HTN- controlled on current regimen. 8. DVT ppx- xarelto 9.able to only ambulate short distances, 5 feet, at a time. He is going to need rehab and I explained to him and he agreed Visit type - Emergency Visit Emergency Visit: Yes ED Registration Date: 05/19/18 Care time: The patient presented to the Emergency Department on the above date and was hospitalized for further evaluation of their emergent condition. - New Patient This patient is new to me today: No - Critical Care Critical Care patient: No - Discharge Referral Referred to [facility] Med P.C.: No
--- NOTE | 2018-06-04 10:21 | PN ---
Progress Note (short form) - Note Progress Note: fuv right heel. +tender at insertion of fascia, +heel spur on xray, +fissure on lateral aspect right heel plantar fasciitis pvd heel fissure right Would benefit from injection therapy, diabetic shoes with custom insoles. will follow. Continue ammonium lactate BID.
--- NOTE | 2018-06-04 13:03 | PN ---
Progress Note, Physician History of Present Illness: TOMLINSON, and distension and LE edema improving with diuresis and paracentesis, denies orthopnea. c/o right heel pain, Xrays unrevealing. - Current Medication List Current Medications: Active Medications Acetaminophen (Tylenol -) 650 mg PO Q6H PRN PRN Reason: PAIN Last Admin: 06/04/18 10:09 Dose: 650 mg Albuterol Sulfate (Ventolin Hfa Inhaler -) 2 puff IH Q4H PRN PRN Reason: SHORT OF BREATH/WHEEZING Atorvastatin Calcium (Lipitor -) 20 mg PO HS [facility] Last Admin: 06/03/18 21:01 Dose: 20 mg Bacitracin (Bacitracin -) 1 applic TP DAILY [facility] Last Admin: 06/03/18 23:30 Dose: 1 applic Budesonide/Formoterol Fumarate (Symbicort 160/4.5mcg -) 2 puff IH BID [facility] Last Admin: 06/04/18 10:13 Dose: 2 puff Carvedilol (Coreg -) 25 mg PO BID [facility] Last Admin: 06/04/18 10:07 Dose: 25 mg Furosemide (Lasix -) 40 mg PO BID@0600,1400 [facility] Last Admin: 06/04/18 05:51 Dose: 40 mg Gabapentin (Neurontin -) 200 mg PO BID [facility] Last Admin: 06/04/18 10:06 Dose: 200 mg Insulin Aspart (Novolog Vial Sliding Scale -) 1 vial SQ ACHS [facility]; Protocol Last Admin: 06/04/18 12:04 Dose: Not Given Lactic Acid (Lac-Hydrin 12) 1 applic TP DAILY PRN PRN Reason: xerosis Last Admin: 06/04/18 10:12 Dose: 1 applic Lisinopril (Prinivil) 20 mg PO DAILY [facility] Last Admin: 06/04/18 10:07 Dose: 20 mg Magnesium Oxide (Mag-Ox -) 400 mg PO BID [facility] Last Admin: 06/04/18 10:07 Dose: 400 mg Pantoprazole Sodium (Protonix -) 40 mg PO DAILY [facility] Last Admin: 06/04/18 10:07 Dose: 40 mg Rivaroxaban (Xarelto -) 20 mg PO DAILY@1800 [facility] Last Admin: 06/03/18 18:28 Dose: 20 mg Spironolactone (Aldactone -) 100 mg PO BID [facility] Last Admin: 06/04/18 10:08 Dose: 100 mg - Objective Vital Signs: Vital Signs Temperature 98.2 F 06/04/18 06:21 Pulse Rate 89 06/04/18 06:21 Respiratory Rate 18 06/04/18 06:21 Blood Pressure 109/66 06/04/18 06:21 O2 Sat by Pulse Oximetry (%) 96 06/03/18 11:40 Constitutional: Yes: No Distress, Calm Neck: Yes: Supple Cardiovascular: Yes: Pulse Irregular Respiratory: Yes: Regular, Diminished Gastrointestinal: Yes: Normal Bowel Sounds, Soft Edema: Yes Edema: LLE: Trace, RLE: Trace Wound/Incision: Yes: Open to air Labs: CBC, BMP 06/01/18 05:30 06/02/18 05:30 INR, PTT INR 1.42 (0.83-1.09) H 05/19/18 15:35 Problem List - Problems (1) Afib Code(s): I48.91 - UNSPECIFIED ATRIAL FIBRILLATION Qualifiers: Atrial fibrillation type: persistent Qualified Code(s): I48.1 - Persistent atrial fibrillation (2) Anasarca Code(s): R60.1 - GENERALIZED EDEMA (3) Ascites Code(s): R18.8 - OTHER ASCITES Qualifiers: Ascites type: other type Qualified Code(s): R18.8 - Other ascites (4) HTN (hypertension) Code(s): I10 - ESSENTIAL (PRIMARY) HYPERTENSION Qualifiers: Hypertension type: essential hypertension Qualified Code(s): I10 - Essential (primary) hypertension (5) Heart failure, systolic, with acute decompensation Code(s): I50.23 - ACUTE ON CHRONIC SYSTOLIC (CONGESTIVE) HEART FAILURE (6) Hypercholesteremia Code(s): E78.00 - PURE HYPERCHOLESTEROLEMIA, UNSPECIFIED (7) Morbid obesity with BMI of 40.0-44.9, adult Code(s): E66.01 - MORBID (SEVERE) OBESITY DUE TO EXCESS CALORIES; Z68.41 - BODY MASS INDEX (BMI) 40.0-44.9, ADULT (8) T2DM (type 2 diabetes mellitus) Code(s): E11.9 - TYPE 2 DIABETES MELLITUS WITHOUT COMPLICATIONS Qualifiers: Diabetes mellitus terminal computer operator insulin use: without terminal computer operator use Diabetes mellitus complication status: with unspecified complications Qualified Code(s) : E11.8 - Type 2 diabetes mellitus with unspecified complications Assessment/Plan 05/22/2018 Echo: Mod LAE, mod-severe RV fxn, mod TR, severe decreased LV fxn LVEF 15-20%, mod cLVH 09/30/2017 R&LHc at [facility]: Minor nonobstructive CAD, severe LV dysfunction, mod MR , severely elevated LVEDP and pulmonary pressures, low cardiac output, LVEF 20% 1. Acute hypoxic respiratory failure related to, 2. Acute on chronic class II NYHA classification LV failure related to systolic/ diastolic LV dysfunction, resolving 3. CAD non-obstructive disease angina pectoris 4. Atrial fibrillation with periods of RVR on DOAC's- held for paracentesis/to be resumed post paracentesis completion 5. HTN/hypertensive cardiomyopathy 6. DM 7. Hypercholesterolemia 8. Pleural effusion/Ascites- post paracentesis, related to above 9. Exogenous obesity PLAN: 1. Oral Lasix 40 po bid and Aldactone 100 bid with close monitoring of renal function, diuretic response and electrolytes 2. Continue Coreg 25 bid 3. Continue Lisinopril 20 qd dose titration as needed with close monitoring of renal function, and as outlined eventually outpatient initiation of Entresto/as per guidelines 4. Continue Lipitor 20 qhs 5. Continue Xarelto 20 qd post therapeutic paracentesis, no ASA 6. As outlined ideally would recommend [employer]-D implant provided patient demonstrate compliance with medical therapy administration and F/U, outpatient F /U
[2018-06-04] MEDS: RIVAROXABAN 20 MG TABLET PO SCH (18:18)
[2018-06-04] MEDS: ATORVASTATIN CA 20 MG TABLET (FP) PO SCH (21:16)
[2018-06-04] MEDS ORDERED: guaiFENesin 200 MG/10 ML 10 ML UNIT-DOSE CUPS PO PRN (22:08)
[2018-06-05] MEDS: FUROSEMIDE 40 MG TABLET (FP) PO SCH ×2 (05:53→15:08)
[2018-06-05] MEDS: INSULIN SLIDING SCALE (NOVOLOG) 1 VIAL SQ SCH ×2 (06:17→12:48)
[2018-06-05] MEDS: CARVEDILOL 12.5 MG TABLET (FP) PO SCH (10:50)
[2018-06-05] MEDS: LISINOPRIL 20 MG TABLET (FP) PO SCH (10:50)
[2018-06-05] MEDS: GABAPENTIN 100 MG CAPSULE (FP) PO SCH (10:50)
[2018-06-05] MEDS: MAGNESIUM OXIDE 400 MG TABLET (FP) PO SCH (10:50)
[2018-06-05] MEDS: PANTOPRAZOLE 40 MG TABLET (FP) PO SCH (10:50)
[2018-06-05] MEDS: ACETAMINOPHEN 325 MG TABLET (FP) PO PRN (10:51)
[2018-06-05] MEDS: SPIRONOLACTONE 25 MG TABLET (FP) PO SCH (10:51)
[2018-06-05] MEDS: BUDESONIDE/FORMETEROL FUMARATE 160/4.5 mcg INHALER IH SCH (10:52)
--- NOTE | 2018-06-05 11:59 | PN ---
Physical Exam: SUBJECTIVE: Patient seen and examined OBJECTIVE: Vital Signs Period Temp Pulse Resp BP Sys/Rosado Pulse Ox Last 24 Hr 97.8 F-98.4 F 59-79 17-18 101-144/47-75 GENERAL: The patient is awake, alert, and fully oriented, in no acute distress. HEAD: Normal with no signs of trauma. EYES: PERRL, extraocular movements intact, sclera anicteric, conjunctiva clear. No ptosis. ENT: Ears normal, nares patent, oropharynx clear without exudates, moist mucous membranes. NECK: Trachea midline, full range of motion, supple. LUNGS: Breath sounds equal, clear to auscultation bilaterally, no wheezes, no crackles, no accessory muscle use. HEART: Regular rate and rhythm, S1, S2 without murmur, rub or gallop. ABDOMEN: Soft, nontender, nondistended, normoactive bowel sounds, no guarding, no rebound, no hepatosplenomegaly, no masses. EXTREMITIES: 2+ pulses, warm, well-perfused, no edema. NEUROLOGICAL: Cranial nerves II through XII grossly intact. Normal speech, gait not observed. PSYCH: Normal mood, normal affect. SKIN: Warm, dry, normal turgor, no rashes or lesions noted Laboratory Results - last 24 hr 06/04/18 06/04/18 06/05/18 16:54 21:37 05:29 POC Glucometer 174 136 159 Active Medications Generic Name Dose Route Start Last Admin Trade Name Freq PRN Reason Stop Dose Admin Acetaminophen 650 mg 06/03/18 11:38 06/05/18 10:51 Tylenol - PO 650 mg Q6H PRN Administration PAIN Albuterol Sulfate 2 puff 06/03/18 11:38 Ventolin Hfa Inhaler - IH Q4H PRN SHORT OF BREATH/WHEEZING Atorvastatin Calcium 20 mg 06/03/18 22:00 06/04/18 21:16 Lipitor - PO 20 mg HS SOWMYA Administration Bacitracin 1 applic 06/03/18 20:30 06/04/18 14:30 Bacitracin - TP 1 applic DAILY SOWMYA Administration Budesonide/Formoterol Fumarate 2 puff 06/03/18 22:00 06/05/18 10:52 Symbicort 160/4.5mcg - IH 2 puff BID SOWMYA Administration Carvedilol 25 mg 06/03/18 22:00 06/05/18 10:50 Coreg - PO 25 mg BID SOWMYA Administration Furosemide 40 mg 06/03/18 14:00 06/05/18 05:53 Lasix - PO 40 mg BID@0600,1400 SOWMYA Administration Gabapentin 200 mg 06/03/18 22:00 06/05/18 10:50 Neurontin - PO 200 mg BID SOWMYA Administration Guaifenesin 10 ml 06/04/18 22:08 06/04/18 22:52 Robitussin - PO 10 ml Q6H PRN Administration COUGH Insulin Aspart 1 vial 06/03/18 16:30 06/05/18 06:17 Novolog Vial Sliding Scale - SQ Not Given ACHS [facility] Protocol Lactic Acid 1 applic 06/03/18 11:38 06/04/18 10:12 Lac-Hydrin 12 TP 1 applic DAILY PRN Administration xerosis Lisinopril 20 mg 06/04/18 10:00 06/05/18 10:50 Prinivil PO 20 mg DAILY SOWMYA Administration Magnesium Oxide 400 mg 06/03/18 22:00 06/05/18 10:50 Mag-Ox - PO 400 mg BID SOWMYA Administration Pantoprazole Sodium 40 mg 06/04/18 10:00 06/05/18 10:50 Protonix - PO 40 mg DAILY SOWMYA Administration Rivaroxaban 20 mg 06/03/18 18:00 06/04/18 18:18 Xarelto - PO 20 mg DAILY@1800 SOWMYA Administration Spironolactone 100 mg 06/03/18 22:00 06/05/18 10:51 Aldactone - PO 100 mg BID SOWMYA Administration ASSESSMENT/PLAN:
--- NOTE | 2018-06-05 12:19 | PN ---
Progress Note (short form) - Note Progress Note: fuv right heel. Feeling better since having cream applied. +tender at insertion of fascia, +fissure on lateral aspect right heel improving plantar fasciitis pvd heel fissure right Continue ammonium lactate BID. Should follow up with Podiatry outpatient.
[2018-06-05] MEDS: BACITRACIN 15 GM TUBE TOPICAL OINTMENT TP SCH (12:48)
--- NOTE | 2018-06-05 12:58 | PN ---
Progress Note, Physician History of Present Illness: TOMLINSON, and distension and LE edema improving with diuresis and paracentesis, denies orthopnea. c/o right heel pain, Xrays unrevealing. Over 25 lbs weight los since admission, suspected bed bug infestation. - Current Medication List Current Medications: Active Medications Acetaminophen (Tylenol -) 650 mg PO Q6H PRN PRN Reason: PAIN Last Admin: 06/05/18 10:51 Dose: 650 mg Albuterol Sulfate (Ventolin Hfa Inhaler -) 2 puff IH Q4H PRN PRN Reason: SHORT OF BREATH/WHEEZING Atorvastatin Calcium (Lipitor -) 20 mg PO HS [facility] Last Admin: 06/04/18 21:16 Dose: 20 mg Bacitracin (Bacitracin -) 1 applic TP DAILY [facility] Last Admin: 06/05/18 12:48 Dose: 1 applic Budesonide/Formoterol Fumarate (Symbicort 160/4.5mcg -) 2 puff IH BID [facility] Last Admin: 06/05/18 10:52 Dose: 2 puff Carvedilol (Coreg -) 25 mg PO BID [facility] Last Admin: 06/05/18 10:50 Dose: 25 mg Furosemide (Lasix -) 40 mg PO BID@0600,1400 [facility] Last Admin: 06/05/18 05:53 Dose: 40 mg Gabapentin (Neurontin -) 200 mg PO BID [facility] Last Admin: 06/05/18 10:50 Dose: 200 mg Guaifenesin (Robitussin -) 10 ml PO Q6H PRN PRN Reason: COUGH Last Admin: 06/04/18 22:52 Dose: 10 ml Insulin Aspart (Novolog Vial Sliding Scale -) 1 vial SQ ACHS [facility]; Protocol Last Admin: 06/05/18 12:48 Dose: Not Given Lactic Acid (Lac-Hydrin 12) 1 applic TP DAILY PRN PRN Reason: xerosis Last Admin: 06/04/18 10:12 Dose: 1 applic Lisinopril (Prinivil) 20 mg PO DAILY [facility] Last Admin: 06/05/18 10:50 Dose: 20 mg Magnesium Oxide (Mag-Ox -) 400 mg PO BID [facility] Last Admin: 06/05/18 10:50 Dose: 400 mg Pantoprazole Sodium (Protonix -) 40 mg PO DAILY [facility] Last Admin: 06/05/18 10:50 Dose: 40 mg Rivaroxaban (Xarelto -) 20 mg PO DAILY@1800 [facility] Last Admin: 06/04/18 18:18 Dose: 20 mg Spironolactone (Aldactone -) 100 mg PO BID [facility] Last Admin: 06/05/18 10:51 Dose: 100 mg - Objective Vital Signs: Vital Signs Temperature 98.1 F 06/05/18 06:00 Pulse Rate 59 L 06/05/18 06:00 Respiratory Rate 18 06/05/18 06:00 Blood Pressure 110/62 06/05/18 06:00 O2 Sat by Pulse Oximetry (%) 97 06/04/18 10:00 Constitutional: Yes: No Distress, Calm Neck: Yes: Supple Cardiovascular: Yes: Regular Rate and Rhythm Respiratory: Yes: Regular, Diminished Gastrointestinal: Yes: Normal Bowel Sounds, Soft Edema: No Labs: CBC, BMP 06/01/18 05:30 06/02/18 05:30 INR, PTT INR 1.42 (0.83-1.09) H 05/19/18 15:35 Problem List - Problems (1) Afib Code(s): I48.91 - UNSPECIFIED ATRIAL FIBRILLATION Qualifiers: Atrial fibrillation type: persistent Qualified Code(s): I48.1 - Persistent atrial fibrillation (2) Anasarca Code(s): R60.1 - GENERALIZED EDEMA (3) Ascites Code(s): R18.8 - OTHER ASCITES Qualifiers: Ascites type: other type Qualified Code(s): R18.8 - Other ascites (4) HTN (hypertension) Code(s): I10 - ESSENTIAL (PRIMARY) HYPERTENSION Qualifiers: Hypertension type: essential hypertension Qualified Code(s): I10 - Essential (primary) hypertension (5) Heart failure, systolic, with acute decompensation Code(s): I50.23 - ACUTE ON CHRONIC SYSTOLIC (CONGESTIVE) HEART FAILURE (6) Hypercholesteremia Code(s): E78.00 - PURE HYPERCHOLESTEROLEMIA, UNSPECIFIED (7) Morbid obesity with BMI of 40.0-44.9, adult Code(s): E66.01 - MORBID (SEVERE) OBESITY DUE TO EXCESS CALORIES; Z68.41 - BODY MASS INDEX (BMI) 40.0-44.9, ADULT (8) T2DM (type 2 diabetes mellitus) Code(s): E11.9 - TYPE 2 DIABETES MELLITUS WITHOUT COMPLICATIONS Qualifiers: Diabetes mellitus custodial insulin use: without intermodal truck driver use Diabetes mellitus complication status: with unspecified complications Qualified Code(s) : E11.8 - Type 2 diabetes mellitus with unspecified complications Assessment/Plan 05/22/2018 Echo: Mod LAE, mod-severe RV fxn, mod TR, severe decreased LV fxn LVEF 15-20%, mod cLVH 09/30/2017 R&LHc at [facility]: Minor nonobstructive CAD, severe LV dysfunction, mod MR , severely elevated LVEDP and pulmonary pressures, low cardiac output, LVEF 20% 1. Acute hypoxic respiratory failure related to, 2. Acute on chronic class II NYHA classification LV failure related to systolic/ diastolic LV dysfunction, resolving 3. CAD non-obstructive disease angina pectoris 4. Atrial fibrillation with periods of RVR on DOAC's- held for paracentesis/to be resumed post paracentesis completion 5. HTN/hypertensive cardiomyopathy 6. DM 7. Hypercholesterolemia 8. Pleural effusion/Ascites- post paracentesis, related to above 9. Exogenous obesity 10. Suspected bed bug infestation PLAN: 1. Oral Lasix 40 po bid and Aldactone 100 bid with close monitoring of renal function, diuretic response and electrolytes 2. Continue Coreg 25 bid 3. Continue Lisinopril 20 qd dose titration as needed with close monitoring of renal function, and as outlined eventually outpatient initiation of Entresto/as per guidelines 4. Continue Lipitor 20 qhs 5. Continue Xarelto 20 qd post therapeutic paracentesis, no ASA 6. As outlined ideally would recommend [employer]-D implant provided patient demonstrate compliance with medical therapy administration and F/U, outpatient F /U 7. Contact isolation
--- NOTE | 2018-06-05 15:36 | DS ---
Physical Exam: SUBJECTIVE: Patient seen and examined. He has no complaints. He says he is unable to walk because of pain in his legs. A bug was found in his bed this morning and has been identified as a bed bug. OBJECTIVE: Vital Signs Period Temp Pulse Resp BP Sys/Rosado Pulse Ox Last 24 Hr 97.8 F-98.1 F 59-65 18-18 101-131/47-75 PHYSICAL EXAM GENERAL: The patient is awake, alert, and fully oriented, in no acute distress. LUNGS: Breath sounds equal, clear to auscultation bilaterally, no wheezes, no crackles, no accessory muscle use. HEART: Irregularly irregular. ABDOMEN: Obese, soft, nontender, nondistended, normoactive bowel sounds, no guarding, no rebound, no hepatosplenomegaly, no masses. EXTREMITIES: 2+ pulses, warm, well-perfused, 2+ edema. LABS Laboratory Results - last 24 hr 06/04/18 06/04/18 06/05/18 16:54 21:37 05:29 POC Glucometer 174 136 159 06/05/18 12:46 POC Glucometer 168 HOSPITAL COURSE: Date of Admission:05/19/18 Date of Discharge: 06/05/18 Minutes to complete discharge: 45 Discharge Summary Reason For Visit: ASCITES,RESP DISTRESS GENERALIZED EDEMA Current Active Problems Acute respiratory failure with hypoxia (Acute) Anasarca (Acute) Ascites (Acute) Fissure in skin of foot (Acute) Infestation by bed bug (Acute) Plantar fasciitis of right foot (Acute) Respiratory distress (Acute) Systolic and diastolic CHF, acute on chronic (Acute) Afib (Chronic) COPD (chronic obstructive pulmonary disease) (Chronic) Coronary artery disease, non-occlusive (Chronic) Diabetic neuropathy (Chronic) HTN (hypertension) (Chronic) Hypercholesteremia (Chronic) Hypertensive cardiomyopathy (Chronic) Morbid obesity with BMI of 40.0-44.9, adult (Chronic) T2DM (type 2 diabetes mellitus) (Chronic) Hospital Course: This is a 62 year old man with a history of HTN, atrial fib, type 2 DM with neuropathy who presented to the ED on 05/19/18 with progressively worsening SOB x 4 days, associated with a dry cough, poor oral intake, generalized fatigue, and inability to ambulate because of dyspnea. He had been hospitalized the prior month at [facility] for CHF. He reported having a paracentesis at that time. He was admitted for acute on chronic systolic and diastolic heart failure , atrial fibrillation with RVR. He was seen by cardiology and treated with Lasix IV, Aldactone, Toprol XL, and Xarelto. RUQ abdominal US showed moderate ascites, right pleural effusion, cirhotic appearing liver. Echocardiogram showed moderately dilated LA, moderate to severely reduced RV systolic function , moderate TR, moderate concentric LVH, mild to moderately dilated RV, LVEF 15- 20%. Toprol XL was changed to Coreg. [employer]-D implant was recommended if he could remain compliant with medical therapy. Xarelto was held and heparin IV drip started in preparation for a paracentesis which was done on 05/29. 4L of fluid were removed. US on 05/30 again showed moderate ascites, and so Lasix and Aldactone were increased and paracentesis was repeated on 05/31. Xarelto was restarted after the procedure. He complained of pain in his legs and feet. He was seen by podiatry. Onychomycotic nails were debrided. He was thought to have pain from diabetic neuropathy, right plantar fasciitis, right heel spur, and possible PAD. Physical therapy was started. He had difficulty ambulating secondary to pain and short-term rehabilitation was recommended. On the morning of 06/05, a bedbug was found in his bed. Hospital protocol for bedbugs was followed with the patient being placed in isolation and all his belongings bagged. He showered, and no bedbugs or insect bites were found on him. He is being discharged to [facility] on 06/05/18. Condition: Stable - Instructions Diet, Activity, Other Instructions: You were admitted to [facility] on May 19 for treatment of congestive heart failure and rapid atrial fibrillation. You were treated with Lasix IV and medications to control your heart rate. You have been unable to walk because of pain in your legs. Physical therapy was started and short-term rehabilitation was recommended. You are being discharged to [facility] on June 05. Activity: As tolerated Diet: Low sodium, diabetic Disposition: [facility] - Home Medications Comprehensive Discharge Medication List: Ambulatory Orders Budesonide/Formeterol Fumarate [SYMBICORT 160/4.5mcg -] 1 inh PO BID 05/19/18 Insulin Detemir [Levemir Flextouch] 10 units SQ HS 05/19/18 Spironolactone 25 mg PO DAILY 05/19/18 Acetaminophen [Tylenol .Regular Strength -] 650 mg PO Q6H PRN tablet 06/05/18 Albuterol Sulfate Inhaler - [Ventolin HFA Inhaler -] 2 puff IH Q4H PRN inhaler 06/05/18 Ammonium Lactate Lotion [Lac-Hydrin 12] 1 applic TP DAILY PRN bottle 06/05/18 Atorvastatin Ca [Lipitor] 20 mg PO HS tablet 06/05/18 Bacitracin - [Bacitracin Topical Ointment -] 1 applic TP DAILY tube 06/05/18 Carvedilol [Coreg -] 25 mg PO BID tablet 06/05/18 Furosemide [Lasix -] 40 mg PO BID@0600,1400 tablet 06/05/18 Gabapentin [Neurontin -] 200 mg PO BID capsule 06/05/18 Guaifenesin [Robitussin -] 10 ml PO Q6H PRN cup 06/05/18 Insulin Sliding Scale [Novolog Vial Sliding Scale -] 1 vial SQ ACHS units 06/05 Lisinopril [Prinivil] 20 mg PO DAILY tablet 06/05/18 Magnesium Oxide [Mag-Ox -] 400 mg PO BID tablet 06/05/18 Pantoprazole Sodium [Protonix -] 40 mg PO DAILY tablet.ec 06/05/18 Rivaroxaban [Xarelto -] 20 mg PO DAILY@1800 tablet 06/05/18 This patient is new to me today: Yes Date on this admission: 06/05/18 Emergency Visit: Yes ED Registration Date: 05/19/18 Care time: The patient presented to the Emergency Department on the above date and was hospitalized for further evaluation of their emergent condition. Critical Care patient: No - Discharge Referral Referred to [facility] Med P.C.: No
[2018-06-05 15:57] VITALS: BP 147/88; PULSE 79; TEMP 97.5
== END 2018-06-05 16:58 | DRG 952 ==
LOC: JER 14:24 → JERBED 16:40 → J4W 05-20 01:35 → J5S 06-03 11:18
PROVIDERS: ADMIT Internal Medicine; ATTEND Internal Medicine
PROC: 0W9G3ZX Drainage of Peritoneal Cavity, Percutaneous Approach, Diagnostic (ICD-10-PCS; principal; 2018-05-29)
PROC: 0W9G3ZZ Drainage of Peritoneal Cavity, Percutaneous Approach (ICD-10-PCS; 2018-05-31)
PROC: 0HBRXZZ Excision of Toe Nail, External Approach (ICD-10-PCS; 2018-06-02)
PROC: 0HBRXZZ Excision of Toe Nail, External Approach (ICD-10-PCS; 2018-06-02)
PROC: 0HBRXZZ Excision of Toe Nail, External Approach (ICD-10-PCS; 2018-06-02)
PROC: 0HBRXZZ Excision of Toe Nail, External Approach (ICD-10-PCS; 2018-06-02)
PROC: 0HBRXZZ Excision of Toe Nail, External Approach (ICD-10-PCS; 2018-06-02)
PROC: 0HBRXZZ Excision of Toe Nail, External Approach (ICD-10-PCS; 2018-06-02)
PROC: 0HBRXZZ Excision of Toe Nail, External Approach (ICD-10-PCS; 2018-06-02)
PROC: 0HBRXZZ Excision of Toe Nail, External Approach (ICD-10-PCS; 2018-06-02)
PROC: 0HBRXZZ Excision of Toe Nail, External Approach (ICD-10-PCS; 2018-06-02)
PROC: 0HBRXZZ Excision of Toe Nail, External Approach (ICD-10-PCS; 2018-06-02)
DX: I11.0 Hypertensive heart disease with heart failure (principal); J44.9 Chronic obstructive pulmonary disease, unspecified; I50.43 Acute on chronic combined systolic (congestive) and diastolic (congestive) heart failure; E11.649 Type 2 diabetes mellitus with hypoglycemia without coma; I25.10 Atherosclerotic heart disease of native coronary artery without angina pectoris; E66.01 Morbid (severe) obesity due to excess calories; Z68.39 Body mass index [BMI] 39.0-39.9, adult; Z91.11 Patient's noncompliance with dietary regimen; G47.33 Obstructive sleep apnea (adult) (pediatric); E88.09 Other disorders of plasma-protein metabolism, not elsewhere classified; Z79.4 Long term (current) use of insulin; R18.8 Other ascites; E78.00 Pure hypercholesterolemia, unspecified; I48.0 Paroxysmal atrial fibrillation; J96.01 Acute respiratory failure with hypoxia; I42.8 Other cardiomyopathies; B35.1 Tinea unguium; L85.3 Xerosis cutis; M72.2 Plantar fascial fibromatosis; I73.9 Peripheral vascular disease, unspecified; E11.40 Type 2 diabetes mellitus with diabetic neuropathy, unspecified
CPT/HCPCS: 36415; 71045-TC-FY; 73630-TC-RT-FY; 76700-TC; 76705-TC; 76942-TC; 80048; 80053; 80061; 82042; 82150; 82570; 82803; 82945; 82962; 82977; 83036; 83615; 83721; 83735; 83880; 83986; 84100; 84156; 84157; 84443; 84478; 84484; 85025; 85027; 85610; 85730; 86850; 86900; 86901; 87070; 87075; 87102; 87116; 87205; 87206; 87210; 88108; 88305-TC; 93005; 93010; 93306-TC; 97116-GP; 97162-GP; 99285-25; G6044; J1644